=== PATIENT | female | born 1990 | race Caucasian/White ===

== ENCOUNTER → 2017-05-07 | Outpatient (CLI) | payer OTHER ==
[~2017-05-07] MED LIST: BCPILLS PO; MULT-506 PO
[2017-05-07 12:01] LABS: URINE APPEARANCE CLEAR (CLEAR); URINE BILIRUBIN NEG (NEG); URINE COLOR YELLOW; URINE NITRITE NEG (NEG); UROBILINOGEN NEG (NEG)
[2017-05-07 12:02] LABS: MANUAL MICROSCOPIC REQUIRED? NO; REVIEW REQ? NO
== END | disposition home or self-care (01) ==
LOC: C.LABSPEC 11:35
PROVIDERS: ATTEND Obstetrics & Gynecology
DX: Z34.00 Encounter for supervision of normal first pregnancy, unspecified trimester (principal)

== ENCOUNTER → 2017-05-14 | Outpatient (CLI) | payer OTHER | END | disposition home or self-care (01) | LOC: C.PAPS 11:26 | PROVIDERS: ATTEND Obstetrics & Gynecology | DX: Z12.4 Encounter for screening for malignant neoplasm of cervix (principal); Z11.51 Encounter for screening for human papillomavirus (HPV) ==

== ENCOUNTER → 2017-05-14 | Outpatient (CLI) | payer OTHER ==
[2017-05-14 09:40] LABS: BASO % 0.3 %; BASO ABS # 0.03 K/uL (0-0.2); COMPLETE YES; EOS % 0.7 %; IG% 0.3 %; LYMPH % 20.4 %; LYMPH ABS # 2.17 K/uL (1.2-3.4); MEAN CELL VOLUME 88.5 fL (80-100); MEAN CORPUSCULAR HEMOGLOBIN 29.4 pg (25-34); MEAN CORPUSCULAR HGB CONC 33.3 g/dl (32-36); MEAN PLATELET VOLUME 9.4 fL (7.4-10.4); MONO % 6.2 %; NEUT % 72.1 %; PLATELET COUNT 299 K/uL (130-400); RED BLOOD COUNT 4.52 M/uL (4.2-5.4); WHITE BLOOD COUNT 10.66 K/uL (4.8-10.8)
[2017-05-16 00:43] LABS: CHLAMYDIA TRACH RNA*** NOT DETECTED (NOT DETECTED); GC (NEIS GONORRHOEAE)RNA** NOT DETECTED (NOT DETECTED)
== END ==
LOC: C.LAB1850 08:54
PROVIDERS: ATTEND Obstetrics & Gynecology
DX: Z34.00 Encounter for supervision of normal first pregnancy, unspecified trimester (principal)

== ENCOUNTER → 2017-07-09 | Outpatient (CLI) | payer OTHER ==
[2017-07-09 12:51] LABS: GTGD 50 Grams
== END | disposition home or self-care (01) ==
LOC: C.LAB1850 11:31
PROVIDERS: ATTEND Obstetrics & Gynecology
DX: Z34.02 Encounter for supervision of normal first pregnancy, second trimester (principal)

== ENCOUNTER → 2017-07-27 | Outpatient (CLI) | payer OTHER | END | disposition home or self-care (01) | LOC: C.LAB1850 07:49 | PROVIDERS: ATTEND Obstetrics & Gynecology | DX: O28.1 Abnormal biochemical finding on antenatal screening of mother (principal); Z3A.00 Weeks of gestation of pregnancy not specified ==

== ENCOUNTER → 2017-10-02 | Outpatient (CLI) | payer OTHER ==
[2017-10-02 12:26] LABS: HEMATOCRIT 33.1 % (37-47)
[2017-10-02 12:54] LABS: GTGD 50 Grams
== END | disposition home or self-care (01) ==
LOC: C.LAB1850 09:38
PROVIDERS: ATTEND Obstetrics & Gynecology
DX: Z34.03 Encounter for supervision of normal first pregnancy, third trimester (principal)

== ENCOUNTER → 2017-10-02 | Outpatient (CLI) | payer OTHER ==
[2017-10-02 11:52] LABS: URINE APPEARANCE CLEAR (CLEAR); URINE BILIRUBIN NEG (NEG); URINE COLOR YELLOW; URINE EPITHELIAL CELL AUTO >30 /lpf (0-5); URINE NITRITE NEG (NEG); URINE SPECIFIC GRAVITY 1.023 (1.000-1.030); UROBILINOGEN NEG (NEG)
[2017-10-02 11:58] LABS: MANUAL MICROSCOPIC REQUIRED? NO; REVIEW REQ? YES
[2017-10-02 11:59] LABS: SULFASALICYLIC ACID NEG (NEG)
[2017-10-02 12:08] LABS: URINE PATH CASTS 0-3 GRANULAR CASTS /lpf (0)
== END | disposition home or self-care (01) ==
LOC: C.LABSPEC 11:16
PROVIDERS: ATTEND Obstetrics & Gynecology
DX: Z34.03 Encounter for supervision of normal first pregnancy, third trimester (principal)

== ENCOUNTER 2017-10-03 20:00 | Outpatient (CLI) | payer OTHER ==
[~2017-10-03] VITALS: Ht 152.4 cm; Wt 77.0 kg
[2017-10-03] MEDS ORDERED: ACETAMINOPHEN 325 MG TAB ONE (20:59)
[2017-10-03] MEDS ORDERED: NURSING VERBAL MED ORDER ONE (21:00)
[2017-10-03 21:09] VITALS: Ht 152.4 cm; Wt 77.0 kg
[2017-10-03 21:26] LABS: URINE APPEARANCE CLEAR (CLEAR); URINE BILIRUBIN NEG (NEG); URINE COLOR YELLOW; URINE NITRITE NEG (NEG); URINE SPECIFIC GRAVITY 1.009 (1.000-1.030); UROBILINOGEN NEG (NEG); ZZUR CULT IF INDIC CLEAN CATCH NO
[2017-10-03 21:37] LABS: MANUAL MICROSCOPIC REQUIRED? NO; REVIEW REQ? YES
[2017-10-03 22:12] LABS: URINE EPITHELIAL CELL AUTO >30 /lpf (0-5)
== END 2017-10-03 21:46 | disposition home or self-care (01) ==
LOC: C.LD 20:00 → C.OPB 20:00
PROVIDERS: ATTEND Obstetrics & Gynecology
DX: O99.89 Other specified diseases and conditions complicating pregnancy, childbirth and the puerperium (principal); M54.9 Dorsalgia, unspecified; Z3A.28 28 weeks gestation of pregnancy; Z87.440 Personal history of urinary (tract) infections

== ENCOUNTER → 2017-10-23 | Outpatient (CLI) | payer OTHER ==
[~2017-10-23] MED LIST changes: -BCPILLS PO
== END | disposition home or self-care (01) ==
LOC: C.LAB1850 08:04
PROVIDERS: ATTEND Obstetrics & Gynecology
DX: O28.1 Abnormal biochemical finding on antenatal screening of mother (principal); Z3A.00 Weeks of gestation of pregnancy not specified

== ENCOUNTER → 2017-11-26 | Outpatient (CLI) | payer OTHER | END | disposition home or self-care (01) | LOC: C.LABSPEC 11:11 | PROVIDERS: ATTEND Obstetrics & Gynecology | DX: Z34.03 Encounter for supervision of normal first pregnancy, third trimester (principal); Z3A.00 Weeks of gestation of pregnancy not specified ==

== ENCOUNTER 2019-07-10 05:24 | Inpatient (IN) ==
--- NOTE | 2019-07-09 09:28 | PAT Medication Instructions ---
Medication Instructions Date of Service July 09, 2019 Home Medications loratadine 10 mg tablet 10 mg PO QAM vitamin,calcium,ilcjpvav-quzz-oxolz acid tablet 1 tab PO QAM insulin aspart U-100 [Novolog U-100 Insulin aspart] 10 - 15 unit SUBCUT TIDM insulin regular human [Novolin R Regular U-100 Insuln] 15 unit SUBCUT HS DO NOT take the morning of surgery loratadine 10 mg tablet 10 mg PO QAM vitamin,calcium,uvthmwzi-xhko-trdfy acid tablet 1 tab PO QAM insulin aspart U-100 [Novolog U-100 Insulin aspart] 10 - 15 unit SUBCUT TIDM Take evening before surgery insulin aspart U-100 [Novolog U-100 Insulin aspart] 10 - 15 unit SUBCUT TIDM insulin regular human [Novolin R Regular U-100 Insuln] 15 unit SUBCUT HS Other Notes If you have any questions please call us at [phone] or [phone] or [phone] or [phone]
--- NOTE | 2019-07-09 15:49 | Anesthesiology Consultation ---
Date of Service July 09, 2019 Assessment & Plan (1) Encounter for pre-operative examination: - Chlorhexadine reaction: no wipes given at PAT visit given hx rash reaction* - No preop labs: per OB, no labs to be drawn at PAT visit. Per patient, no known hx of blood transfusions Chart Review Chart Review: Acceptable Risk for Surgery (pending labs AM DOS) and Patient seen in Pre Admission Testing Teaching & Discussion Pre-Anesthesia Teaching/Discussion Notes: Instructed NPO after midnight before surgery,except medications with 15 cc of water. Medication instructions provided according to the PAT guidelines. History Surgery Operation Date: 07/10/19 07:30 Proposed Procedures p Section in LD - Milena Pickard DO Height/Weight Height: 5 ft Weight: 78.7 kg Allergies Allergy/AdvReac Type Severity Reaction Status Date / Time chlorhexidine Allergy Mild RASH Verified 07/09/19 14:42 Sulfa (Sulfonamide Allergy Mild Rash Verified 07/09/19 14:42 Antibiotics) Medications Home Medications Medication Instructions Recorded Confirmed Last Taken loratadine 10 mg tablet 10 mg PO QAM tab 06/01/19 07/09/19 Unknown 1 tab PO QAM 06/01/19 07/09/19 Unknown vitamin,calcium,aiuxtjaq-fbcf-orjms acid tablet insulin aspart U-100 [Novolog 10 - 15 unit SUBCUT TIDM 07/02/19 07/09/19 Unknown U-100 Insulin aspart] insulin regular human [Novolin R 15 unit SUBCUT HS 07/02/19 07/09/19 Unknown Regular U-100 Insuln] Past Medical History Medical History Conductive hearing loss, bilateral Gestational diabetes insulin ("well controlled") History of migraine headaches History of varicella Hx of herpes zoster Exercise / Class Metabolic Activity III < 4 Walking/Shop/Light housework Past Family History Family History Grandfather (Maternal) Diabetes Sister Gestational diabetes Father Hypertension Dyslipidemia Hypercholesteremia Mother Malignant hyperthermia FHx: allergies Family/Other Cancer Past Surgical History Surgical History History of cryosurgery Hx of bilateral breast reduction surgery Hx of section c/s (failure to progress): 12/16/17: dosed epidural (x1 attempt at L3-L4) with "adequate block" at [facility]. "Good pain control" Hx of myringotomy Hx of tonsillectomy Hx of wisdom tooth extraction Past Anesthesia History No Hx of Anesthesia Complications (except PONV) and No Family Hx of Anesthesia Complications History of PONV History of PONV and Hx of Motion Sickness Social History Smoking Status: Never smoker Do You Dip or Chew Tobacco: No Hx Alcohol Use: No (no ETOH with ) Hx Substance Use: No Review of Systems related mild reflux and right hip pain. Patient denies chest pain, shortness of breath, cough, wheezing, palpitations. Physical Exam Vital Signs VITALS BP 99/63 (120/70 at OB office earlier today) P 67 TEMP 98.5 SP02 98%RA RESP 18 PHYSICAL Full neck and c-spine range of motion. Full TMJ range of motion. TMD 3.5 finger breaths Mallampati Score 3 Dentition: intact Lungs: clear throughout to auscultation Cardiac: regular rate and rhythm, no murmurs noted Spine: normal Extremities: no edema Testing Laboratory Results 05/02/19 H/H 11.2/32.5
[2019-07-10 05:56] LABS: Basophils # (auto) 0.03 K/uL (0-0.2); Basophils % (auto) 0.4 %; Eosinophils # (auto) 0.05 K/uL (0-0.5); Eosinophils % (auto) 0.6 %; Hematocrit (blood only) 33.7 % (37-47); Hemoglobin 11.6 g/dL (12.0-16.0); Immature Granulocytes # (auto) 0.06 K/uL (0.00-0.02); Immature Granulocytes % (auto) 0.7 %; Lymphocytes # (auto) 2.26 K/uL (1.2-3.4); Mean Corpuscular Volume 88.7 fL (80-100); Mean Platelet Volume 10.5 fL (7.4-10.4); Monocytes # (auto) 0.82 K/uL (0.11-0.59); Monocytes % (auto) 10.2 %; Neutrophils # (auto) 4.84 K/uL (1.4-6.5); Neutrophils % (auto) 60.1 %; Platelet Count 200 K/uL (130-400); RDW Coefficient of Variation 12.9 % (11.5-14.5); White Blood Count 8.06 K/uL (4.8-10.8)
[2019-07-10] MEDS ORDERED: CITRIC ACID/SODIUM CITRATE 15 ML UDC PO SCH (06:00)
[2019-07-10] MEDS ORDERED: CEFAZOLIN 2000MG 2,000 MG/15 ML SYR IV SCH (06:00)
[2019-07-10] MEDS ORDERED: LACTATED RINGER'S 1,000 ML IV ONE (06:01)
[2019-07-10 06:09] LABS: Mean Corpuscular Hgb Conc 34.4 g/dL (32-36)
[2019-07-10] MEDS ORDERED: LACTATED RINGER'S 1,000 ML IV SCH (06:15)
[2019-07-10] MEDS ORDERED: fentaNYL citrate 100 MCG/2 ML VIAL ONE (07:03)
[2019-07-10] MEDS ORDERED: MoRPHine SULFATE PF 1 MG/ML 10 ML AMP/VIAL ONE (07:03)
--- NOTE | 2019-07-10 07:35 | History & Physical Bridge Note ---
Date of Service July 10, 2019 History & Physical Bridge Note I have examined the patient, reviewed the History & Physical and in the interval since the performance of the History & Physical I have noted the following changes of clinical significance: no changes noted
--- NOTE | 2019-07-10 07:38 | History & Physical Report ---
Date of Service July 10, 2019 Assessment & Plan (1) : repeat section. Counseled/consented in office. Questions answered. History of Present Illness Chief Complaint: repeat c section Primary Care Provider: JOSE PCP 29yo @ 39 12/05 here for scheduled repeat cs. Also has insulin-controlled GDM. Allergies Allergy/AdvReac Type Severity Reaction Status Date / Time chlorhexidine Allergy Mild RASH Verified 07/09/19 14:42 Sulfa (Sulfonamide Allergy Mild Rash Verified 07/09/19 14:42 Antibiotics) Home Medications Home Medications Medication Instructions Recorded Confirmed Type loratadine 10 mg tablet 10 mg PO QAM tab 06/01/19 07/10/19 History 1 tab PO QAM 06/01/19 07/10/19 History vitamin,calcium,jpqaorlv-nddr-pdvoc acid tablet insulin aspart U-100 [Novolog 10 - 15 unit SUBCUT TIDM 07/02/19 07/10/19 History U-100 Insulin aspart] insulin regular human [Novolin R 15 unit SUBCUT HS 07/02/19 07/10/19 History Regular U-100 Insuln] Patient History Medical History Conductive hearing loss, bilateral Gestational diabetes insulin ("well controlled") History of migraine headaches History of varicella Hx of herpes zoster Surgical History History of cryosurgery Hx of bilateral breast reduction surgery Hx of section c/s (failure to progress): 12/16/17: dosed epidural (x1 attempt at L3-L4) with "adequate block" at [facility]. "Good pain control" Hx of myringotomy Hx of tonsillectomy Hx of wisdom tooth extraction Family History Grandfather (Maternal) Diabetes Sister Gestational diabetes Father Hypertension Dyslipidemia Hypercholesteremia Mother Malignant hyperthermia FHx: allergies Family/Other Cancer Social History Preferred Language: Khmer Communication Ability: Effective Slate Trimmer Required: No Beliefs That Will Affect Care: None marital status: Current Living Situation: Family Other Information That Helps Us Care for You: No Feels Safe at Home: Yes Safety Concerns: Feels Safe At This Time Smoking Status: Never smoker Do You Dip or Chew Tobacco: No ; Second Hand Exposure: No ; Hx Alcohol Use: No Hx Substance Use: No Review of Systems All systems reviewed & are unremarkable except as noted in HPI & below Physical Exam Constitutional: WD/WN, vitals as above no acute distress Respiratory: normal respiratory effort Cardiovascular: Rate/Rhythm: regular rate and regular rhythm Gastrointestinal (Abdomen): Inspection/Auscultation: abdomen normal to inspection; abdomen not distended Percussion/Palpation: abdomen soft Results & Data Vital Signs (Past 12 Hours) Vital Signs Temp Pulse Resp BP 07/10/19 05:43 90 116/78 07/10/19 05:30 36.8 C 90 18 116/78 Monitoring External Monitor cat 1 Tocodynamometer rare
[2019-07-10] MEDS ORDERED: OXYTOCIN 10 UNITS/ML VIAL ONE (07:41)
[2019-07-10] MEDS ORDERED: ONDANSETRON INJ 2 MG/ML 2 ML VIAL ONE (07:59)
[2019-07-10] MEDS ORDERED: DiphenhydrAMINE HCL 50 MG/ML VIAL IV PRN (08:00)
[2019-07-10] MEDS ORDERED: MoRPHine SULFATE PF 1 MG/ML 10 ML AMP/VIAL INT SPINAL ONE (08:00)
[2019-07-10] MEDS ORDERED: SODIUM CHLORIDE 0.9% 1000ML 1,000 ML IV SCH (08:00)
[2019-07-10] MEDS ORDERED: ONDANSETRON INJ 2 MG/ML 2 ML VIAL IV PRN (08:00)
[2019-07-10] MEDS ORDERED: LACTATED RINGER'S 500 ML IV PRN (08:00)
[2019-07-10] MEDS ORDERED: NALOXONE HCL 0.4 MG/1 ML VIAL/CARP IV PRN (08:00)
[2019-07-10] MEDS ORDERED: NALOXONE HCL 1 MG in SODIUM CHLORIDE 0.9% 1000ML 1,000 ML IV PRN (08:00)
[2019-07-10] MEDS ORDERED: NALOXONE HCL 0.08 MG in SYRINGE 1.8 ML IV PRN (08:00)
[2019-07-10] MEDS ORDERED: NALBUPHINE HCL INJ 10 MG/ML AMP IV PRN (08:00)
[2019-07-10] MEDS ORDERED: NO NARCOTICS OR SEDATIVES SCH (08:00)
[2019-07-10] MEDS ORDERED: DC INTRASPINAL MORPHINE SCH (08:00)
[2019-07-10] MEDS ORDERED: MEPERIDINE HCL 25 MG/ML CARP IV PRN (08:00)
[2019-07-10] MEDS ORDERED: ePHEDrine sulfate 50 MG/ML AMP IV PRN (08:00)
[2019-07-10] MEDS ORDERED: ePHEDrine sulfate 50 MG/ML SYR ONE (08:33)
[2019-07-10] MEDS ORDERED: PHENYLEPHRINE 100MCG/ML 5ML SYR ONE (08:33)
--- NOTE | 2019-07-10 08:52 | Operative Report ---
Post Operative Report Pre & Post Diagnosis Operation Date: 07/10/19 07:30 Pre-Op Diagnosis: Intrauterine at 39 2/7 weeks. Desires repeat section. Post-Op Diagnosis: Same Procedure Operation Date: 07/10/19 07:30 Actual Procedures p Repeat low transverse Section in with of live male child at 0808 - Milena Pickard DO Surgeon Milena Pickard, Section Gang Worker Dr Escobar Ramires PGY1 Estimated Blood Loss 500 Findings Consistent with Post-Op Diagnosis Viable male , apgars 9/9. Weight pending, please see nursery records . Specimens Placenta, cord blood Drains Cool clear yellow. Anesthesia Type General Indications 29yo @ 39 2/7 with h/o section, desire for repeat. GDMA2. Description of Procedure The patient was seen in the preoperative holding area where risks benefits alternatives to surgery reviewed. She elected to proceed with the case. She previously signed informed consent under no duress in the office. She was taken to the operating room, spinal anesthesia was administered. She is prepared and draped in the usual sterile fashion with Betadine prep due to chlorhexidine allergy. Timeout was confirmed. Adequate anesthesia was tested. A Pfannenstiel skin incision was made through the prior scar and carried through to the underlying layer of fascia. The fascia was nicked at midline and this incision was extended bilaterally bluntly. The superior aspect of the fascial incision was grasped with Marta clamps x2, and underlying rectus abdominis muscles were dissected away. In a similar fashion, the inferior aspect of the incision was dissected. The rectus muscle abdominous muscles were midline, and the peritoneum was extended bluntly. The bladder reflection was dissected off the anterior aspect of the uterus with Metzenbaum scissors. Bladder blade was placed, a new scalpel was used to create a low transverse incision. The membranes were ruptured for clear fluid. The was delivered from the cephalic presentation, the head was delivered, nuchal cord x1 was easily reduced, and the body followed. Spontaneous cry in the field. The cord was doubly clamped and cut, and the baby was handed off to the waiting optomechanical technician. The cord blood was collected, and the placenta was delivered spontaneously intact with three-vessel cord. Uterus was exteriorized, and cleared of all clots and debris. The hysterotomy incision was reapproximated using 0 Vicryl in a running locked stitch. A second layer of the same suture was used to imbricate the incision. Multiple fyvgtp-td-lycoz sutures of 0 Vicryl were used to obtain excellent hemostasis at the incision site. The posterior uterus was evaluated, and uterus tubes and ovaries appeared normal. The uterus was placed back inside the abdomen, again excellent hemostasis was noted. The gutters were cleared of all clots and debris. The fascial incision was reapproximated using 0 Vicryl in a running stitch. The subcutaneous tissue was irrigated, and reapproximated using 2-0 plain gut in a running stitch. The skin incision was reapproximated using 4-0 Vicryl in a running subcuticular stitch. Steri-Strips and a bandage were applied, the patient tolerated the procedure well and is being moved to her labor room to recovery in stable and good condition. I attest to the content of the Intraoperative Record and any orders documented therein. Any exceptions are noted below.
--- NOTE | 2019-07-10 09:18 | Anesthesiology Progress Note ---
Date of Service July 10, 2019 Anesthesia Post Procedure Vital Signs Vital Signs: Temp Pulse Resp BP Pulse Ox 07/10/19 09:14 82 99 07/10/19 09:09 68 125/58 L 99 07/10/19 09:04 84 99 07/10/19 08:59 74 106/57 L 98 07/10/19 08:54 81 98 07/10/19 08:50 97.9 F 20 07/10/19 08:49 76 113/58 L 97 07/10/19 05:43 90 116/78 07/10/19 05:30 98.2 F 90 18 116/78 Notes Mental Status: alert / awake / arousable and participated in evaluation Nausea / Vomiting: adequately controlled Pain: adequately controlled Airway Patency, RR, SpO2: stable & adequate BP & HR: stable & adequate Hydration State: stable & adequate Neuraxial Anesthesia: was administered and sensory block is resolving Anesthetic Complications: no major complications apparent and Pt Satisfied with anesthetic care
[2019-07-10] MEDS: KETOROLAC 30 MG/ML VIAL IV PRN ×3 (09:57→23:23)
[2019-07-10] MEDS ORDERED: DIPHTHERIA/TETANUS/PERTUSSIS 0.5 ML SYR/VIAL IM ONE (11:51)
[2019-07-10] MEDS ORDERED: MAGNESIUM HYDROXIDE SUSP 30 ML UDC PO PRN (11:51)
[2019-07-10] MEDS ORDERED: HYDROCORTISONE ACETATE 25 MG SUPP PR PRN (11:51)
[2019-07-10] MEDS ORDERED: SUPERCREAM 0.870% 15 GM JAR EXT PRN (11:51)
[2019-07-10] MEDS ORDERED: BENZOCAINE 20% AER SPR 82.5 GM CAN EXT PRN (11:51)
[2019-07-10] MEDS: OXYTOCIN 20 UNITS in LACTATED RINGER'S 1,000 ML IV SCH ×2 (12:35→21:34)
[2019-07-10] MEDS: SIMETHICONE 80 MG CHEW PO SCH ×3 (13:23→20:58)
[2019-07-10] MEDS ORDERED: PROMETHAZINE HCL 6.25 MG in SODIUM CHLORIDE 0.9% 50 ML IV STA (14:27)
[2019-07-10] MEDS: DOCUSATE SODIUM 100 MG CAP PO SCH (20:58)
[2019-07-11] MEDS ORDERED: DiphenhydrAMINE HCL 50 MG/ML VIAL IV PRN (02:01)
[2019-07-11] MEDS ORDERED: PROMETHAZINE HCL 25 MG in SODIUM CHLORIDE 0.9% 50 ML IV PRN (02:01)
[2019-07-11] MEDS ORDERED: ONDANSETRON INJ 2 MG/ML 2 ML VIAL IV PRN (02:01)
[2019-07-11] MEDS ORDERED: KETOROLAC 30 MG/ML VIAL IV PRN (02:01)
[2019-07-11] MEDS: OXYCODONE/ACETAMINOPHEN 5mg/325mg TAB PO PRN ×4 (05:47→22:23)
[2019-07-11] MEDS: IBUPROFEN 600 MG TAB PO PRN ×4 (05:48→22:24)
[2019-07-11 06:30] LABS: Basophils # (auto) 0.02 K/uL (0-0.2); Basophils % (auto) 0.2 %; Eosinophils # (auto) 0.06 K/uL (0-0.5); Eosinophils % (auto) 0.6 %; Hematocrit (blood only) 33.9 % (37-47); Hemoglobin 11.7 g/dL (12.0-16.0); Immature Granulocytes # (auto) 0.05 K/uL (0.00-0.02); Immature Granulocytes % (auto) 0.5 %; Lymphocytes # (auto) 1.41 K/uL (1.2-3.4); Lymphocytes % (auto) 12.9 %; Mean Corpuscular Hgb Conc 34.5 g/dL (32-36); Mean Platelet Volume 10.1 fL (7.4-10.4); Monocytes # (auto) 0.98 K/uL (0.11-0.59); Neutrophils # (auto) 8.37 K/uL (1.4-6.5); Neutrophils % (auto) 76.8 %; Platelet Count 151 K/uL (130-400); RDW Coefficient of Variation 13.1 % (11.5-14.5); RDW Standard Deviation 41.4 fL (36.4-46.3); Red Blood Count 3.81 M/uL (4.2-5.4); White Blood Count 10.89 K/uL (4.8-10.8)
--- NOTE | 2019-07-11 06:50 | Obstetrical Progress Note ---
Date of Service <Escobar Ramires MD - Last Filed: 07/11/19 07:26> July 11, 2019 Assessment & Plan <Escobar Ramires MD - Last Filed: 07/11/19 07:26> (1) : CS 07/10 POD#1 feels well, ambulating well, voiding well overnight will continue routine care after discharge will have follow-up in 6 weeks Subjective <Escobar Ramires MD - Last Filed: 07/11/19 07:26> Ms Miller is a 29y/o female ; POD #1 following delivery at 37 5/7 weeks; doing well this morning; having some mild abdominal cramping/pain; voiding well, not passing gas at this point but can feel her abdomen rumbling; tolerating meals overnight; and able to ambulate some within the room Physical Exam <Escobar Ramires MD - Last Filed: 07/11/19 07:26> General: alert; oriented; no acute distress Cardiac: RRR; no m/g/r Respiratory: CTAB a/p; no wheezes/rales/rhonchi; no increased work of breathing; symmetrical chest rise; no respiratory distress Abdomen: soft; NT/ND; bowel sounds positive Uterus: uterine fundus firm; palpable 2cm below umbilicus Lower extrem: no lower extremity edema or swelling; no deep calf pain; Jessica's sign negative b/l Results & Data <Escobar Ramires MD - Last Filed: 07/11/19 07:26> Vital Signs (Past 12 Hours) Vital Signs Temp Pulse Resp BP Pulse Ox 07/11/19 04:00 36.9 C 75 16 115/73 93 07/11/19 02:30 16 93 07/11/19 01:30 16 96 07/11/19 00:30 17 95 07/11/19 00:20 36.8 C 79 17 105/70 94 07/10/19 23:30 16 94 07/10/19 22:37 16 95 07/10/19 21:30 18 96 07/10/19 20:30 18 98 07/10/19 20:00 36.8 C 77 18 111/61 07/10/19 19:30 18 100 Laboratory Results 07/11/19 07/10/19 Range/Units 06:15 05:42 WBC 10.89 H (4.8-10.8) K/uL RBC 3.81 L (4.2-5.4) M/uL Hgb 11.7 L (12.0-16.0) g/dL Hct 33.9 L (37-47) % MCV 89.0 (80-100) fL MCH 30.7 (25-34) pg MCHC 34.5 (32-36) g/dL RDW Std Deviation 41.4 (36.4-46.3) fL RDW Coeff of Keri 13.1 (11.5-14.5) % Plt Count 151 (130-400) K/uL MPV 10.1 (7.4-10.4) fL Immature Gran % (Auto) 0.5 % Neut % (Auto) 76.8 % Lymph % (Auto) 12.9 % Kimble % (Auto) 9.0 % Eos % (Auto) 0.6 % Baso % (Auto) 0.2 % Immature Gran # (Auto) 0.05 H (0.00-0.02) K/uL Neut # (Auto) 8.37 H (1.4-6.5) K/uL Lymph # (Auto) 1.41 (1.2-3.4) K/uL Kimble # (Auto) 0.98 H (0.11-0.59) K/uL Eos # (Auto) 0.06 (0-0.5) K/uL Baso # (Auto) 0.02 (0-0.2) K/uL Blood Type A Positive Antibody Screen NEGATIVE Medications Administered Current Inpatient Medications Benzocaine (Dermoplast Pain Relieving [place]) 1 appln EXT UD PRN PRN Reason: use on skin as needed Stop: 08/09/19 11:50 Bisacodyl (Dulcolax) 5 mg PO 2000 [facility] Stop: 07/11/19 20:01 Bisacodyl (Dulcolax) 10 mg MO PRN PRN PRN Reason: Constipation Stop: 08/11/19 08:48 Cocaine HCl (Supercream 0.870%) 1 gm EXT UD PRN PRN Reason: hemmorrhoidal inflammation Stop: 07/24/19 11:50 Diphenhydramine HCl (Benadryl) 25 mg IV QID PRN PRN Reason: Itching Stop: 08/10/19 02:00 Diphenhydramine HCl (Benadryl Capsule) 25 mg PO QID PRN PRN Reason: Itching Stop: 08/09/19 11:50 Docusate Sodium (Colace) 100 mg PO DAILY@,21 [facility] Stop: 08/09/19 20:59 Last Admin: 07/10/19 20:58 Dose: 100 mg Documented by: Ferrous Sulfate (Feosol) 325 mg PO DAILY@08 [facility] Stop: 08/10/19 07:59 Hydrocortisone (Anusol Hc) 25 mg MO BID PRN PRN Reason: Hemorrhoids Stop: 08/09/19 11:50 Lactated Ringer's (Lr) 1,000 mls @ 125 mls/hr IV .Q8H [facility] Stop: 08/09/19 06:14 Last Admin: 07/10/19 06:59 Dose: 125 mls/hr Documented by: Promethazine HCl 25 mg/ Sodium (Chloride) 51 mls @ 204 mls/hr IV Q4H PRN PRN Reason: Nausea And Vomiting Stop: 08/10/19 02:00 Ibuprofen (Motrin) 600 mg PO Q4H PRN PRN Reason: Pain Stop: 08/09/19 11:50 Last Admin: 07/11/19 05:48 Dose: 600 mg Documented by: Ketorolac Tromethamine (Toradol) 30 mg IV Q6H PRN PRN Reason: Pain Stop: 07/16/19 02:00 Magnesium Hydroxide (Milk Of Magnesia) 30 ml PO HS PRN PRN Reason: Constipation Stop: 08/09/19 11:50 Ondansetron HCl (Zofran) 4 mg IV Q4H PRN PRN Reason: Nausea And Vomiting Stop: 08/10/19 02:00 Oxycodone/Acetaminophen (Percocet 5mg/325mg) 1 - 2 tab PO Q4H PRN PRN Reason: Pain Stop: 07/25/19 02:00 Last Admin: 07/11/19 05:47 Dose: 1 tab Documented by: Sriramat Multivit/[place]/Iron/Folic Ac ( Vitamin) 1 tab PO DAILY@08 [facility] Stop: 08/10/19 07:59 Simethicone (Mylicon) 80 mg PO DAILY@,,, [facility] Stop: 08/09/19 12:59 Last Admin: 07/10/19 20:58 Dose: 80 mg Documented by: <Milena Pickard DO - Last Filed: 07/11/19 08:05> Co-Signing Physician Notes Resident Physician Supervision Note: I was present with Dr. Ramires during the history and exam. I discussed the case with the resident and agree with the findings and plan as documented in the note. Any exceptions or clarifications are listed here: POD#1 doing well. Continue routine postop care. Documented By: Milena Pickard DO Resident Activity Tracking <Escobar Ramires MD - Last Filed: 07/11/19 07:26> Resident Involvement: Resident Care Provided Care Provided: OB Delivery
[2019-07-11] MEDS ORDERED: MEASLES, MUMPS & RUBELLA VIRUS VIAL SQ ONE ×2 (08:15→22:08)
[2019-07-11] MEDS: SIMETHICONE 80 MG CHEW PO SCH ×3 (08:55→20:48)
[2019-07-11] MEDS: FERROUS SULFATE 325 MG TAB PO SCH (08:55)
[2019-07-11] MEDS: DOCUSATE SODIUM 100 MG CAP PO SCH ×2 (08:55→20:47)
[2019-07-11] MEDS: PRENATAL VITAMIN 1 TAB PO SCH (08:55)
[2019-07-11] MEDS ORDERED: BISACODYL 5 MG TABEC PO SCH (20:00)
[2019-07-12] MEDS: IBUPROFEN 600 MG TAB PO PRN ×3 (02:25→11:54)
[2019-07-12 06:43] LABS: Hematocrit (blood only) 33.2 % (37-47); Hemoglobin 11.1 g/dL (12.0-16.0)
--- NOTE | 2019-07-12 06:54 | Obstetrical Progress Note ---
Date of Service <Escobar Ramires MD - Last Filed: 07/12/19 08:02> July 12, 2019 Assessment & Plan <Escobar Ramires MD - Last Filed: 07/12/19 08:02> (1) : CS 07/10 POD#2 feels well, ambulating well, voiding well overnight will continue routine care after discharge will have follow-up in 6 weeks Subjective <Escobar Ramires MD - Last Filed: 07/12/19 08:02> Ms Miller is a 29y/o female ; POD #2 following delivery at 37 5/7 weeks; doing well this morning; having some mild abdominal cramping/pain; voiding well, not passing gas at this point but can feel her abdomen rumbling; tolerating meals overnight; and able to ambulate some within the room Physical Exam <Escobar Ramires MD - Last Filed: 07/12/19 08:02> General: alert; oriented; no acute distress Cardiac: RRR; no m/g/r Respiratory: CTAB a/p; no wheezes/rales/rhonchi; no increased work of breathing; symmetrical chest rise; no respiratory distress Abdomen: soft; NT/ND; bowel sounds positive Uterus: uterine fundus firm; palpable 4cm below umbilicus Lower extrem: no lower extremity edema or swelling; no deep calf pain; Jessica's sign negative b/l Results & Data <Escobar Ramires MD - Last Filed: 07/12/19 08:02> Vital Signs (Past 12 Hours) Vital Signs Temp Pulse Resp BP Pulse Ox 07/12/19 03:10 36.6 C 71 16 117/74 96 Laboratory Results 07/12/19 Range/Units 06:28 Hgb 11.1 L (12.0-16.0) g/dL Hct 33.2 L (37-47) % Medications Administered Current Inpatient Medications Benzocaine (Dermoplast Pain Relieving [place]) 1 appln EXT UD PRN PRN Reason: use on skin as needed Stop: 08/09/19 11:50 Bisacodyl (Dulcolax) 10 mg MA PRN PRN PRN Reason: Constipation Stop: 08/11/19 08:48 Cocaine HCl (Supercream 0.870%) 1 gm EXT UD PRN PRN Reason: hemmorrhoidal inflammation Stop: 07/24/19 11:50 Diphenhydramine HCl (Benadryl) 25 mg IV QID PRN PRN Reason: Itching Stop: 08/10/19 02:00 Diphenhydramine HCl (Benadryl Capsule) 25 mg PO QID PRN PRN Reason: Itching Stop: 08/09/19 11:50 Docusate Sodium (Colace) 100 mg PO DAILY@08,21 [facility] Stop: 08/09/19 20:59 Last Admin: 07/11/19 20:47 Dose: 100 mg Documented by: Ferrous Sulfate (Feosol) 325 mg PO DAILY@08 [facility] Stop: 08/10/19 07:59 Last Admin: 07/11/19 08:55 Dose: 325 mg Documented by: Hydrocortisone (Anusol Hc) 25 mg MA BID PRN PRN Reason: Hemorrhoids Stop: 08/09/19 11:50 Lactated Ringer's (Lr) 1,000 mls @ 125 mls/hr IV .Q8H [facility] Stop: 08/09/19 06:14 Last Admin: 07/10/19 06:59 Dose: 125 mls/hr Documented by: Promethazine HCl 25 mg/ Sodium (Chloride) 51 mls @ 204 mls/hr IV Q4H PRN PRN Reason: Nausea And Vomiting Stop: 08/10/19 02:00 Ibuprofen (Motrin) 600 mg PO Q4H PRN PRN Reason: Pain Stop: 08/09/19 11:50 Last Admin: 07/12/19 02:25 Dose: 600 mg Documented by: Ketorolac Tromethamine (Toradol) 30 mg IV Q6H PRN PRN Reason: Pain Stop: 07/16/19 02:00 Magnesium Hydroxide (Milk Of Magnesia) 30 ml PO HS PRN PRN Reason: Constipation Stop: 08/09/19 11:50 Ondansetron HCl (Zofran) 4 mg IV Q4H PRN PRN Reason: Nausea And Vomiting Stop: 08/10/19 02:00 Oxycodone/Acetaminophen (Percocet 5mg/325mg) 1 - 2 tab PO Q4H PRN PRN Reason: Pain Stop: 07/25/19 02:00 Last Admin: 07/11/19 22:23 Dose: 1 tab Documented by: Prenat Multivit/Candle Making Supervisor/Iron/Folic Ac ( Vitamin) 1 tab PO DAILY@08 [facility] Stop: 08/10/19 07:59 Last Admin: 07/11/19 08:55 Dose: 1 tab Documented by: Simethicone (Mylicon) 80 mg PO DAILY@08,13,17,21 [facility] Stop: 08/09/19 12:59 Last Admin: 07/11/19 20:48 Dose: 80 mg Documented by: <Alen Gill MD - Last Filed: 07/12/19 08:22> Co-Signing Physician Notes Patient seen and evaluated and agree with the above findings and plan. Stable for discharge. Resident Activity Tracking <Escobar Ramires MD - Last Filed: 07/12/19 08:02> Resident Involvement: Resident Care Provided Care Provided: OB Delivery
[2019-07-12] MEDS: OXYCODONE/ACETAMINOPHEN 5mg/325mg TAB PO PRN ×2 (07:50→11:53)
[2019-07-12] MEDS: FERROUS SULFATE 325 MG TAB PO SCH (07:51)
[2019-07-12] MEDS: SIMETHICONE 80 MG CHEW PO SCH ×2 (07:51→11:58)
[2019-07-12] MEDS: PRENATAL VITAMIN 1 TAB PO SCH (07:51)
[2019-07-12] MEDS: DOCUSATE SODIUM 100 MG CAP PO SCH (07:51)
[2019-07-12] MEDS ORDERED: BISACODYL 10 MG SUPP PR PRN (08:49)
--- NOTE | 2019-07-14 10:00 | Discharge Summary ---
Date of Service July 14, 2019 Admission HPI Per Admitting Provider 29yo @ 39 12/05 here for scheduled repeat cs. Also has insulin-controlled GDM. Admission Exam (Per Admitting) Constitutional WD/WN, vitals as above no acute distress Respiratory normal respiratory effort Cardiovascular Rate/Rhythm: regular rate and regular rhythm Gastrointestinal (Abdomen) Inspection/Auscultation: abdomen normal to inspection; abdomen not distended Percussion/Palpation: abdomen soft Discharge Data Consultations 07/10/19 05:27 Consult Anesthesiology Stat Procedures Performed Operation Date: 07/10/19 07:30 Actual Procedures p Section in LD with of live male child at 0808 - Milena Pickard DO [facility] Course (1) : Patient was admitted following her scheduled repeat section. Unremarkable postop course, discharged home POD#2 to followup in the office in 6 weeks. Please see info provided to patient for meds/discharge instructions/etc.
== END 2019-07-12 13:09 | disposition home or self-care (01) | DRG 788 ==
LOC: 4S1 05:24 → EDSTATUS 07:30 → 4S2 12:16

== ENCOUNTER 2024-02-26 05:39 | Inpatient (IN) ==
--- NOTE | 2024-02-13 09:12 | Anesthesiology Consultation ---
Date of Service February 13, 2024 Assessment & Plan (1) Encounter for pre-operative examination: Chart Review Chart Review: Acceptable Risk for Surgery and Patient NOT seen in Pre Admission Testing Consults Requested none History Surgery Operation Date: 02/26/24 07:30 Proposed Procedures p Repeat Section in LD - Rubin Crespo MD Height/Weight Height: 5 ft Weight: 72.575 kg Allergies Allergy/AdvReac Type Severity Reaction Status Date / Time chlorhexidine Allergy Mild RASH Verified 02/13/24 07:58 Sulfa (Sulfonamide Allergy Mild Rash Verified 02/13/24 07:58 Antibiotics) Medications Home Medications Medication Instructions Recorded Confirmed Last Taken cyanocobalamin (vitamin B-12) 1 tab PO QAM 02/13/24 02/13/24 Unknown prenat.vits,bernard,uvg-vksu-sdybk 1 tab PO QAM 02/13/24 02/13/24 Unknown Past Medical History Medical History History of anesthesia reaction with previous 2 c-sections, one spinal one epidural, vomited after both procedures. History of migraine headaches Conductive hearing loss, bilateral Past Family History Family History Grandfather (Maternal) Diabetes Sister Gestational diabetes Cancer Father Hypertension Dyslipidemia Hypercholesteremia Mother Malignant hyperthermia FHx: allergies Environmental allergies Family/Other No problems noted. Other No family history of bleeding disorder Past Surgical History Surgical History S/P myringotomy with insertion of tube Hx of tonsillectomy Hx of wisdom tooth extraction Hx of section x2 Hx of bilateral breast reduction surgery History of cryosurgery Social History Smoking Status: Never smoker Do You Dip or Chew Tobacco: No Hx Alcohol Use: Yes ("not while ") Alcohol type: wine alcohol intake frequency: other Alcohol Intake Frequency Comment: 2-4 drinks per week Hx Substance Use: No substance use type: does not use Testing Laboratory Results Laboratory Tests 08/04/23 11:49 WBC 11.16 H Hgb 13.0 Hct 36.6 L Plt Count 303 Sodium 136 Potassium 3.5 Chloride 103 Carbon Dioxide 27 BUN 12 Creatinine 0.57 L Glucose 138 H
[~2024-02-26 05:39] MED LIST changes: +LACTATED RINGER'S 1,000 ML IV SCH; -MULT-506 PO
[2024-02-26] MEDS: LACTATED RINGER'S 1,000 ML IV SCH ×2 (06:15→07:18)
[2024-02-26 06:29] LABS: Basophils # (auto) 0.03 K/uL (0.00-0.20); Basophils % (auto) 0.3 %; Eosinophils # (auto) 0.06 K/uL (0.00-0.50); Eosinophils % (auto) 0.6 %; Hemoglobin 12.4 g/dl (12.0-16.0); Immature Granulocytes # (auto) 0.06 K/uL (0.01-0.20); Immature Granulocytes % (auto) 0.6 %; Lymphocytes # (auto) 2.84 K/uL (1.20-3.40); Mean Corpuscular Hemoglobin 31.5 pg (25.0-34.0); Mean Corpuscular Hgb Conc 35.4 g/dL (32.0-36.0); Mean Corpuscular Volume 88.8 fL (80.0-100.0); Mean Platelet Volume 9.8 fL (9.4-12.4); Monocytes # (auto) 0.81 K/uL (0.11-0.59); Monocytes % (auto) 8.6 %; Neutrophils # (auto) 5.67 K/uL (1.40-6.50); Neutrophils % (auto) 59.9 %; Platelet Count 233 K/uL (130-400); RDW Coefficient of Variation 12.8 % (11.5-14.5); RDW Standard Deviation 41.7 fL (36.4-46.3); Red Blood Count 3.94 M/uL (4.20-5.40); White Blood Count 9.47 K/ul (4.8-10.8)
--- OUTSIDE RECORDS SUMMARY | 2024-02-26 08:19 | External Medical Summary | Summary of Care ---
Author Name Unknown Organization [facility] Address [address] [place] [address] Phone [phone] Care Team Providers Care Distribution Center Associate Name Role Phone Alex Hopkins DO Primary Care Provider Reason for Visit * Reason Comments Return Visit Non Stress Test Encounter Details Date Type Department Care Team (Late st Contact Info) Description 02/12/2024 9:00 AM EDT Office Visit Gynecology/Obstetri cs Mayuri Botello [address] [facility] [place] [address] Jayy Chong, [facility] [address] [facility] [place] [id number] Ayan Non Stress Tests Manoj [address] [facility] [place] [address] Supervision of high risk in third trimester*; History of gestational diabetes mellitus (GDM); History of section complicating ; Obesity in , antepartum; Surrogate ; Diet controlled gestational diabetes mellitus (GDM) in third trimester; resulting from in vitro fertilization in third trimester Allergies Active Allergy Reactions Criticality Noted Date Comments Sulfa Antibiotics 08/15/2002 documented as of this encounter (statuses as of 02/12/2024) Medications Medication Sig Dispensed Refills Start Date End Date Status 28-0.8 MG Oral Tablet Take by mouth. 0 Active B Complex Vitamins Oral Capsule Take 1 Capsule by mouth in the morning. 0 Active Breast PumpIndications:[place] st feeding status of mother Estimated Date of Delivery: 02/29/24, Z39.1, double electric breast pump 1 Each 0 10/12/2023 Active OneTwoSee Verio Flex System w/Device KitIndications:Diet controlled gestational diabetes mellitus (GDM) in third trimester Use to test blood sugars 4 times daily (fasting, 1 hour after breakfast, lunch, and dinner) 1 Kit 0 12/07/2023 Active Virident Systems In Vitro Strip (Glucose Blood)Indications:Di et controlled gestational diabetes mellitus (GDM) in third trimester Use to test blood sugars 4 times daily (fasting, 1 hour after breakfast, lunch, and dinner) 125 Strip 6 12/07/2023 Active LemonStand.uch DelAffirm Lancets 30GIndications:Diet controlled gestational diabetes mellitus (GDM) in third trimester Use to test blood sugars 4 times daily (fasting, 1 hour after breakfast, lunch, and dinner) 200 Each 6 12/07/2023 Active documented as of this encounter (statuses as of 02/12/2024) Active Problems Problem Noted Date Diagnosed Date Diet controlled gestational diabetes mellitus (GDM) in third trimester 12/07/2023 Overview: Diagnosed at 28 weeks Nutrition consult ordered History of A2GDM (insulin) Lab Results Component Value Date/Time 50-G GESTATIONAL GLUCOSE, 1 HOUR - [facility] 174 (H) 08/21/2023 02:20 PM 100-G GESTATIONAL GLUCOSE, 1 HOUR - [facility] 199 (H) 12/07/2023 08:12 AM 100-G GESTATIONAL GLUCOSE, 2 HOUR - [facility] 163 (H) 12/07/2023 09:09 AM 100-G GESTATIONAL GLUCOSE, 3 HOUR - [facility] 116 12/07/2023 10:07 AM 100-G GESTATIONAL GLUCOSE, FASTING - [facility] 89 12/07/2023 07:06 AM 12/11/23: MFM ADAPT consult complete. Enrolled in Current Health. Instructions provided to report blood sugars each week for MFM review 12/17/2023- stable 12/24/23-stable 12/31/23-stable; 2 elevated sugars will review again next week 01/07/24-stable 01/14/24- patient had some elevated sugars msg sent to [facility] to schedule for FU adapt appt 01/18/2024 Follow up ADAPT compete; Reports Current Health Julianna not working; blood sugars reported WNL, continue diet controlled; phone number provided for Current Health 01/21/24: RPM reviewed. No new blood sugars to review since 01/17; asked patient to provide blood sugars via chat or MyG if still having issues with Current Health. 01/28/24: RPM reviewed. Still missing multiple readings; will schedule ADAPT f/u. 01/28/24: RPM reviewed, patient sen readings for and in chat; both days within target. Pt reports increased nausea recently. Scheduled for adapt visit 2024 --KW 02/04/24: RPM reviewed; stable overall; Nutrition visit tomorrow 02/11/24: RPM reviewed; overall stable Last Assessment & Plan: CONSIDERATIONS: Reviewed etiology and risks associated with gestational diabetes mellitus (GDM), including risks to , fetus, and maternal progression to Type 2 DM. Instructed on proper use of glucometer; supplies ordered, if indicated. Advised that life-long screening for diabetes is recommended every 1-3 years. RECOMMENDATIONS: Recommend monitoring blood sugars with daily fasting blood sugar (maintained at less than or equal to 95) and 1 hour postprandial measurements (maintained at less than or equal to 140). Medications should be adjusted to maintain these target values. Report levels to MFM (Maternal- Medicine) weekly. Recommend nutrition consult with RDN (Registered Dietitian Rand Butting Machine Operator). Lifestyle changes are also indicated including optimizing gestational weight gain and physical activity of 30 minutes per day, if not otherwise contraindicated in . Insulin is preferred if medications are indicated to optimize euglycemia. Metformin (preferred over glyburide) may also be used in some circumstances. Reviewed the risks and benefits of each. Recommend ultrasound, surveillance and delivery as follows: A1GDM, delivery should be accomplished by EDC due to in vitro fertilization . A2GDM, recommend growth assessment with MFM every 4 weeks, initiate surveillance at 32 weeks and continue until delivery at 39 weeks. Recommend intrapartum monitoring every 1-2 hours (A2GDM) or every 4 hours (A1GDM) and treat with insulin if indicated. Recommend 2-hour glucose tolerance testing with 75-gram glucose load 6-8 weeks . Surrogate 08/21/2023 resulting from in vitro fertilization 08/16/2023 Overview: Recommend Maternal Medicine (MFM) level II anatomy scan at 19-20 weeks. Recommend echocardiography by MFM at 22-24 weeks gestation for patients who have had IVF. Recommend MFM growth evaluation if indicated by other existing or maternal conditions. Recommend ultrasound for growth at 28-32 weeks. Recommend weekly NSTs to begin at 36 weeks. Consider delivery at 39 weeks. Last Assessment & Plan: Low risk NIPT appreciated. We reviewed slightly increased risk for congenital anomalies, particularly cardiac, in IVF pregnancies as well as FGR. Etiology of these complications is unknown; perhaps related to underlying cause of the infertility vs. embryo cell culture. The risk is higher when ICSI is used. echo may not detect small VSD (<2mm) but is effective in diagnosis of most cyanotic lesions and many other clinically relevant cardiac defects. Today's exam did not suggest any evidence of cardiac abnormality. Will follow for growth around 32 weeks. NSTs at 36 weeks; consider delivery by her EDC. Questions answered. , supervision, high-risk 08/16/2023 Overview: IVF Surrogate carrier Donor egg and biological father's sperm Embryo transfer on 06/13/2023 PIGT: not performed-fresh transfer NIPT: ordered Last Assessment & Plan: CONSIDERATIONS: Assisted reproductive technology (ART) includes in vitro fertilization (IVF), intrauterine insemination (IUI), Gamete intrafallopian transfer (GIFT) and Zygote intrafallopian transfer (ZIFT). 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 Discussed with patient that even for avila ART pregnancies, the relative risk of complications such as growth restriction, preeclampsia, prematurity, placental abruption, and mortality are increased, although clearly not independent of infertility itself. Neurodevelopmental outcomes of children conceived by ART appear to be normal. Risk of congenital abnormalities is increased by about 1/3 over the population baseline risk of 2-4%. There is approximately 1% of cardiac defects associated with pregnancies resulting from IVF. This is likely due to the fertilization process. RECOMMENDATIONS: Recommend consult with genetic counselor. Recommend Maternal Medicine (MFM) level II anatomy scan at 19-20 weeks. Recommend echocardiography by MFM at 22-24 weeks gestation for patients who have had IVF. Recommend MFM growth evaluation if indicated by other existing or maternal conditions. Recommend ultrasound for growth at 28-32 weeks. Recommend weekly NSTs to begin at 36 weeks. Consider delivery at 39 weeks. History of gestational diabetes mellitus (GDM) 1 Overview: History of gestational diabetes in two previous pregnancies; diet and insulin controlled Has early 1 hour GTT scheduled this week. Lab Results Component Value Date/Time HEMOGLOBIN A1C - [facility] 5.1 02/08/2023 07:21 AM HEMOGLOBIN A1C - [facility] 5.4 12/30/2019 10:44 AM Last Assessment & Plan: Elevated 1'GTT with normal 3'GTT. Repeat 3'GTT needed in third trimester. History of section complicating pregnan cy 08/16/2023 Overview: History of C-sections x2 Plans repeat elective Obesity in , antepartum 08/16/2023 Overview: Pre gravid BMI: 30.2 Class 1 obesity Last Assessment & Plan: The anatomy that was visualized is appropriate for the gestational age. Family history of hypercholesterolemia Dysfunction of eustachian tube 03/12/2012 Viral warts 09/02/2002 Overview: ICD-10 update of inactive term Estimated Date of Delivery Comme nts Yes 02/29/2024 Based on Ultraso und documented as of this encounter (statuses as of 02/12/2024) Resolved Problems Problem Noted Date Diagnosed Date Resolved Date High-risk 08/16/2023 08/21/20 23 IUD contraception 12/30/2019 08/15/2023 documented as of this encounter (statuses as of 02/12/2024) Immunizations Name Administration Dates Next Due DTP Vaccine 08/23/1995, 2,1991, 991,1991 DTaP HIB - Dipth/Tet/Acell Pert/HIB 06/1992,1991,1991, 991 Hepatitis B Vaccine 12/19/2012,07/16/2012,2011 Hepatitis B, 0-19 yrs 12/16/1993,07/22/1993,05/30 Hepatitis B, 20+ yrs 12/19/2012,07/16/2012,06/11 MMR - Measles/Mumps/Rubella Vaccine 08/23/1995,0 05/06/1992 OPV - Polio Virus Vaccine (Oral) 05/06/1992,05/29,1991 Seasonal Influenza, PF, 6 M & above, IM , (FluLaval or Fluzone) 08/16/2023 Seasonal Influenza, Split, I IV3, No Preserve, Inj 08/20/2015 Seasonal Influenza, Split, I IV3, With Preserve, Inj 09/13/2016,08/20/2015,08/10/2014, 013 TDAP (age 10 and older)(Boostrix) 12/07/2023,10/2018,02/03/2011 documented as of this encounter Social History Tobacco Use Types Packs/Day Years Used Date Smoking Tobacco: Never Smokeless Tobacco: Never Alcohol Use Standard Drinks/Week Comments No 0 (1 standard drink = 0.6 oz pur e alcohol) PHQ-2 Answer Date Recorded PHQ Adult Total Score 0 01/22/2024 Hunger Vital Sign Answer Date Recorded Within the past 12 months, y ou worried that your food would run out before you got the money to buy more. Never true 08/16/20 23 Within the past 12 months, t he food you bought just didn't last and you didn't have money to get more. Never true 08/16/2023 [place] Depression Scale Answer Date Recorded [place] Depression Scale Total 2 01/22/2024 The thought of harming myself has occurred to me . Never 01/22/2024 Estimated Date of Delivery Comme nts Yes 02/29/2024 Based on Ultraso und Sex and Gender Information Value Date Recorded Sex Assigned at Female 01/04/2021 9:07 AM EST Gender Identity Female 01/04/2021 9:07 AM EST Sexual Orientation Straight 01/04/2021 9: 07 AM EST Job Start Date Occupation Industry Not on file Not on file Not on file documented as of this encounter Last Filed Vital Signs Vital Sign Reading Time Taken Comments Blood Pressure 112/68 02/12/2024 9:17 AM EDT Pulse - - Temperature - - Respiratory Rate - - Oxygen Saturation - - Inhaled Oxygen Concentration - - Weight 74.4 kg (164 lb) 02/12/2024 9:17 AM EDT Height 152.4 cm (5') 02/12/2024 9:17 AM EDT Body Mass Index 32.03 02/12/2024 9:17 AM EDT documented in this encounter Progress Notes * Jayy Chong CNM - 02/12/2024 9:45 AM EDT Surrogate patient. DARRYL at 37w4d, with NST. Feeling well without concerns. Denies any DFM. Denies any RUC, LOF, or VB. Denies any concerns with BS, managed by MFM. States parents had wanted to decline most recent growth if not needed, patient had reached out to Dr. Lomas with M and this was mutually agreed upon. Has ERCS scheduled 02/26/24 RTO 1 week for NST/DARRYL NST Cat 1, but non-reactive, will send for BPP 06/05 ASSESSMENT assessment with Non-stress Test completed on 02/12/2024 at 37.4weeks gestation for indication of IVF. heart baseline: 140s bpm Variability: Moderate Decelerations: absent Accelerations: present but not 15x15 Contractions: Mild irregular NST start time: 916 NST stop time: 951 NST strip reviewed, interpreted, and approved by OB provider, Jayy Chong CNM. NST strip stored in clinic storage file documented in this encounter Nursing Notes * Safia Desouza LPN - 02/12/2024 10:05 AM EDT 37w4d NST, DARRYL Denies concerns documented in this encounter Plan of Treatment Upcoming Encounters Date Type Department Care Team (Late st Contact Info) Description 02/18/2024 1:45 PM EDT Office Visit Gynecology/Obstetrics RodriguezPedro Luisnava Botello [address] [place] [phone] Magdalena Patel CRNP [address] [place] [address] Tammy Botello Stress Tests Manoj [address] [place] [address] 02/26/2024 9:00 AM EDT Office Visit Gynecology/Obstetrics Mayuri Botello [address] [place] [address] Celena Napoles, [facility] [address] [facility] [address] Tammy Botello Stress Tests Manoj [address] [place] [address] 03/04/2024 10:20 AM EDT [facility] [address] [place] [address] Mallory Murray PA-C [address] [place] [address] 03/04/2024 11:30 AM EDT Office Visit Gynecology/Obstetrics Mayuri Botello [address] [place] [address] Magdalena Patel CRNP [address] [place] [address] Pending Results Name Type Priority Associated Diagnoses Date /Time US BPP W/O NON-STRESS TEST Medical Imaging Routine resulting from in vitro fertilization in third trimester 02/12/2024 10:29 AM EDT Scheduled Orders Name Type Priority Associated Diagnoses Orde r Schedule US BPP W/O NON-STRESS TEST Medical Imaging Routine resulting from in vitro fertilization in third trimester Expected: 02/12/2024, Expires: 03/13/2025 Health Maintenance Due Date Last Done Comments COVID-19 Vaccine ( season) 2023 Depression Screening 01/21/2025 01/22/2024 DTaP,Tdap,and Td Vaccines (9 - Td or Tdap) 12/07/2033 12/07/2023, 12/27/2018, 02/03/2011, Additional history exists Hepatitis B Completed 12/19/2012, 11/30, 07/16/2012, Additional history exists Pap Smear Discontinued 12/02/2021 Influenza Vaccine (FLU shot) Completed 08/16/2023, 09/13/2016, 08/20/2015, Additional history exists GARDASIL-HPV IMMUNIZATION SERIES Aged Out No longer eligible based on patient's age to complete this topic MENINGOCOCCAL (MENACTRA/MENVEO) Aged Out No longer eligible based on patient's age to complete this topic Pneumococcal Vaccine: Pediatrics (0 to 5 Years) and At-Risk Patients (6 to 64 Years) Aged Out No longer eligible based on patient's age to complete this topic documented as of this encounter Medical Devices Implanted Type Area Fire Hazard Inspector Device Identifier Shelf Expiration Date Model / Serial / Lot T Tube Implanted:Qty: 1 on 09/19/2022 by Leonardo Castro DO at [facility] Right: Ear 02/08/2031 [id number] / / [id number] Tube Ventilation 4.8mmx1.32mm - [id number] Implanted:Qty: 1 on 09/19/2022 by Leonrado Castro DO at OR [facility] Left: Ear [employer] 02/08/2031 [id number] / / [id number] documented as of this encounter Visit Diagnoses Diagnosis Supervision of high risk in third trimester- Primary Unspecified high-risk History of gestational diabetes mellitus (GDM) History of section complicating Previous delivery, unspecified as to episode of care or not applicable Obesity in , antepartum Obesity complicating , childbirth, or the puerperium, antepartum condition or complication Surrogate state, incidental Diet controlled gestational diabetes mellitus (GDM) in third trimester resulting from in vitro fertilization in third trimester documented in this encounter Care Teams Distribution Center Associate Relationship Specialty Start Date End Date Alex Hopkins DO [address] [place] [address] PCP - General Family Medicine 12/30/19 documented as of this encounter
--- OUTSIDE RECORDS SUMMARY | 2024-02-26 08:19 | External Medical Summary | Summary of Care ---
Author Name Unknown Organization [facility] Address [address] [place] [address] Phone [phone] Care Team Providers Care Glass Artist Name Role Phone Alex Hopkins DO Primary Care Provider Reason for Visit * Reason Comments Return Visit Non Stress Test Encounter Details Date Type Department Care Team (Latest Contact Info) Description 02/18/2024 1:45 PM EDT Office Visit Gynecology/Obstetric s Michael'nava Botello [address] [place] [address] Magdalena Patel CRNP [address] [place] [address] Ayan Non Stress Tests Manoj [address] [place] [address] Supervision of high risk in third trimester*; History of gestational diabetes mellitus (GDM); History of section complicating ; Obesity in , antepartum; Surrogate ; Diet controlled gestational diabetes mellitus (GDM) in third trimester; resulting from in vitro fertilization in third trimester Allergies Active Allergy Reactions Criticality Noted Date Comments Sulfa Antibiotics 08/15/2002 documented as of this encounter (statuses as of 02/18/2024) Medications Medication Sig Dispensed Refills Start Date End Date Status 28-0.8 MG Oral Tablet Take by mouth. 0 Active B Complex Vitamins Oral Capsule Take 1 Capsule by mouth in the morning. 0 Active Breast PumpIndications:[place] st feeding status of mother Estimated Date of Delivery: 02/29/24, Z39.1, double electric breast pump 1 Each 0 10/12/2023 Active [employer] Marine SystemsToIdentiGEN Verio Flex System w/Device KitIndications:Diet controlled gestational diabetes mellitus (GDM) in third trimester Use to test blood sugars 4 times daily (fasting, 1 hour after breakfast, lunch, and dinner) 1 Kit 0 12/07/2023 Active [employer] SystemsToStio In Vitro Strip (Glucose Blood)Indications:Di et controlled gestational diabetes mellitus (GDM) in third trimester Use to test blood sugars 4 times daily (fasting, 1 hour after breakfast, lunch, and dinner) 125 Strip 6 12/07/2023 Active Juliet Marine SystemsTouch Delica Lancets 30GIndications:Diet controlled gestational diabetes mellitus (GDM) in third trimester Use to test blood sugars 4 times daily (fasting, 1 hour after breakfast, lunch, and dinner) 200 Each 6 12/07/2023 Active documented as of this encounter (statuses as of 02/18/2024) Active Problems Problem Noted Date Diagnosed Date [...] had some elevated sugars msg sent to [facility] to schedule for FU adapt appt 01/18/2024 Follow up ADAPT compete; Reports Current Health Julianna not working; blood sugars reported WNL, continue diet controlled; phone number provided for Current Health 01/21/24: RPM reviewed. No new blood sugars to review since 01/17; asked patient to provide blood sugars via CH chat or MyG if still having issues with Current Health. 01/28/24: RPM reviewed. Still missing multiple readings; will schedule ADAPT f/u. 01/28/24: RPM reviewed, patient sen readings for and in chat; both days within target. Pt reports increased nausea recently. Scheduled for adapt visit 2024 --KW 02/04/24: RPM reviewed; stable overall; Nutrition visit tomorrow 02/11/24: RPM reviewed; overall stable 02/18/24: RPM reviewed; stable. Continue diet control. Last Assessment & Plan: CONSIDERATIONS: Reviewed etiology [...] Recommend nutrition consult with RDN (Registered Dietitian Research Computing Specialist). Lifestyle changes are also indicated including optimizing [...] as of this encounter (statuses as of 02/18/2024) Resolved Problems Problem Noted Date Diagnosed Date Resolved Date High-risk 08/16/2023 08/21/20 23 IUD contraception 12/30/2019 08/15/2023 documented as of this encounter (statuses as of 02/18/2024) Immunizations Name Administration Dates Next Due DTP [...] money to get more. Never true 08/16/2023 [place] Depression Scale Answer Date Recorded [place] Depression Scale Total 2 01/22/2024 The thought [...] Sign Reading Time Taken Comments Blood Pressure 100/58 02/18/2024 1:46 PM EDT Pulse - - Temperature - - Respiratory Rate - - Oxygen Saturation - - Inhaled Oxygen Concentration - - Weight 73.9 kg (163 lb) 02/18/2024 1:46 PM EDT Height 152.4 cm (5') 02/18/2024 1:46 PM EDT Body Mass Index 31.83 02/18/2024 1:46 PM EDT documented in this encounter Progress Notes * Magdalena Patel CRNP - 02/18/2024 2:23 PM EDT ASSESSMENT assessment with Non-stress Test completed on 02/18/2024 at 38.2weeks gestation for indication of IVF heart baseline: 130 bpm Variability: Moderate Decelerations: absent Accelerations: present Contractions: None NST start time: 1345 NST stop time: 1415 NST strip reviewed, interpreted, and approved by OB provider, KATIE Arauz . NST strip stored in clinic storage file Pt has no concerns. Baby is active. Denies contractions, bleeding, LOF. C/s scheduled for 02/25. KATIE Arauz documented in this encounter Nursing Notes * Safia Desouza LPN - 02/18/2024 2:07 PM EDT 38w3d CARLOST, DARRYL documented in this encounter Plan of Treatment Upcoming Encounters Date Type Department Care Team (Late st Contact Info) Description 02/26/2024 9:00 AM EDT Office Visit Gynecology/Obstetrics [facility] [address] [place] [address] Celena Napoles, JOSE DE JESUS [address] [place] [address] [employer] Stress [facility] [address] [place] [address] 03/04/2024 10:20 AM EDT Office Visit Otolaryngology [facility] [address] [place] [address] Mallory Murray PA-C [address] [place] [address] 03/04/2024 11:30 AM EDT Office Visit Gynecology/Obstetrics [facility] [address] [place] [address] Magdalena Patel CRNP [address] [place] [address] Health Maintenance Due Date Last Done Comments COVID-19 Vaccine (2022- season) 2023 Depression Screening 01/21/2025 01/22/2024 DTaP,Tdap,and [...] this encounter Medical Devices Implanted Type Area Log Washer Device Identifier Shelf Expiration Date Model / Serial / Lot T Tube Implanted:Qty: 1 on 09/19/2022 by Leonardo Castro DO at OR [facility] Right: Ear 02/08/2031 [id number] / / [id number] Tube Ventilation 4.8mmx1.32mm - [id number] Implanted:Qty: 1 on 09/19/2022 by Leonardo Castro DO at OR [facility] Left: Ear [employer] 02/08/2031 [id number] / / [id number] documented as of this encounter Visit Diagnoses [...] trimester documented in this encounter Care Teams Glass Artist Relationship Specialty Start Date End Date Alex Hopkins DO [facility] [place] [address] PCP - General Family Medicine 12/30/19 documented as of this encounter
--- OUTSIDE RECORDS SUMMARY | 2024-02-26 08:19 | External Medical Summary | Summary of Care ---
Author Name Unknown Organization [facility] Address [address] [place] [address] Phone [phone] Care Team Providers Care Event Security Officer Name Role Phone Alex Hopkinskirk Primary Care Provider Reason for Visit * Reason Onset Date Comments Nutritional Services Documentation 02/06/2024 Encounter Details Date Type Department Care Team (Late st Contact Info) Description 02/06/2024 4:30 PM EDT Scheduled Telephone Nutrition Services, [facility] [address] [place] [address] Sade Ordoñez RDN [address] [place] [address] Arrived Allergies Active Allergy Reactions Criticality Noted Date Comments Sulfa Antibiotics 08/15/2002 documented as of this encounter (statuses as of 02/06/2024) Medications Medication Sig Dispensed Refills Start Date End Date Status 28-0.8 MG Oral Tablet Take by mouth. 0 Active B Complex Vitamins Oral Capsule Take 1 Capsule by mouth in the morning. 0 Active Breast PumpIndications:Radha st feeding status of mother Estimated Date of Delivery: 02/29/24, Z39.1, double electric breast pump 1 Each 0 10/12/2023 Active OneTouch Verio Flex System w/Device KitIndications:Diet controlled gestational diabetes mellitus (GDM) in third trimester Use to test blood sugars 4 times daily (fasting, 1 hour after breakfast, lunch, and dinner) 1 Kit 0 12/07/2023 Active OneTouch Verio In Vitro Strip (Glucose Blood)Indications:Di et controlled gestational diabetes mellitus (GDM) in third trimester Use to test blood sugars 4 times daily (fasting, 1 hour after breakfast, lunch, and dinner) 125 Strip 6 12/07/2023 Active CircuitHubTouch Delica Lancets 30GIndications:Diet controlled gestational diabetes mellitus (GDM) in third trimester Use to test blood sugars 4 times daily (fasting, 1 hour after breakfast, lunch, and dinner) 200 Each 6 12/07/2023 Active documented as of this encounter (statuses as of 02/06/2024) Active Problems Problem Noted Date Diagnosed Date [...] had some elevated sugars msg sent to [facility] to schedule for FU adapt appt 01/18/2024 [...] RPM reviewed; stable overall; Nutrition visit tomorrow Last Assessment & Plan: CONSIDERATIONS: Reviewed etiology [...] Recommend nutrition consult with RDN (Registered Dietitian Wine Sales Representative). Lifestyle changes are also indicated including optimizing [...] as of this encounter (statuses as of 02/06/2024) Resolved Problems Problem Noted Date Diagnosed Date Resolved Date High-risk 08/16/2023 08/21/20 23 IUD contraception 12/30/2019 08/15/2023 documented as of this encounter (statuses as of 02/06/2024) Immunizations Name Administration Dates Next Due DTP Vaccine 08/23/1995, 2,1991, 991,1991 DTaP HIB - Dipth/Tet/Acell Pert/HIB 06/1992,1991,1991, 991 Hepatitis B Vaccine 12/19/2012,07/16/2012,2011 Hepatitis B, 0-19 yrs 12/16/1993,07/22/1993,08/2 Hepatitis B, 20+ yrs 12/19/2012,07/16/2012,06/11 MMR - [...] money to get more. Never true 08/16/2023 [place] Depression Scale Answer Date Recorded [place] Depression Scale Total 2 01/22/2024 The thought [...] on file documented as of this encounter Miscellaneous Notes * Telephone Encounter - Sade Ordoñez RDN - 02/06/2024 3:46 PM EDT LMOM- Called to f /u w/patient since visit yesterday Has GDM and was to work on:Nutrition: To improve blood glucose control I will aim for small meals and snacks that include several food groups - asked to contact me if has questions. Sade Cordero RD, LDN, CDE Adz Worker [facility] [phone] documented in this encounter Plan of Treatment Upcoming Encounters Date Type Department Care Team (Late st Contact Info) Description 02/12/2024 9:00 AM EDT Office Visit Gynecology/Obstetrics [facility] [address] [place] [address] Jayy Chong CNM [address] [place] [address] [facility], Non Stress Tests [facility] [address] [place] [address] 02/18/2024 1:45 PM EDT Office Visit Gynecology/Obstetrics [facility] [address] [place] [address] Magdalena Patel CRNP [address] [place] [address] [facility], Non Stress Tests [facility] [address] [place] [address] 02/26/2024 9:00 AM EDT Office Visit Gynecology/Obstetrics [facility] [address] [place] [address] Celena Napoles CNM [address] [place] [address] [facility], Non Stress Tests [facility] [address] [place] [address] 03/04/2024 10:20 AM EDT Office Visit Otolaryngology [facility] [address] [place] [address] Mallory Murray PA-C [address] [place] [address] 03/04/2024 11:30 AM EDT Office Visit Gynecology/Obstetrics [facility] [address] [place] [address] Magdalena Patel CRNP [address] [place] [address] Health Maintenance Due Date Last Done Comments [...] this encounter Medical Devices Implanted Type Area Veterans Rehabilitation Counselor Device Identifier Shelf Expiration Date Model / Serial / Lot T Tube Implanted:Qty: 1 on 09/19/2022 by Leonardo Castro, at OR [facility] Right: Ear 02/08/2031 [id number] / / [id number] Tube Ventilation 4.8mmx1.32mm - [id number] Implanted:Qty: 1 on 09/19/2022 by Leonardo Castro DO at OR [facility] Left: Ear [employer] 02/08/2031 [id number] / / [id number] documented as of this encounter Care Teams Event Security Officer Relationship Specialty Start Date End Date Alex Hopkins DO [address] [place] [address] PCP - General Family Medicine 12/30/19 documented as of this encounter
--- OUTSIDE RECORDS SUMMARY | 2024-02-26 08:19 | External Medical Summary | Summary of Care ---
Author Name Unknown Organization [facility] [address] [facility] [address] Phone [phone] Care Team Providers Care Proof Technician Helper Name Role Phone Alex Hopkins DO Primary Care Provider Reason for Visit * Reason Onset Date Comments Order Request 02/13/2024 Encounter Details Date Type Department Care Team (Late st Contact Info) Description 02/13/2024 Telephone Gynecology/Obstetrics [facility] [address] [place] [address] Jany Billings CRNP [address] [place] [address] Order Request Allergies Active Allergy Reactions Criticality Noted Date Comments Sulfa Antibiotics 08/15/2002 documented as of this encounter (statuses as of 02/13/2024) Medications Medication Sig Dispensed Refills Start Date End Date Status 28-0.8 MG Oral Tablet Take by mouth. 0 Active B Complex Vitamins Oral Capsule Take 1 Capsule by mouth in the morning. 0 Active Breast PumpIndications:Viola st feeding status of mother Estimated Date [...] and dinner) 125 Strip 6 12/07/2023 Active Sway MedicalTouch Delica Lancets 30GIndications:Diet controlled gestational diabetes mellitus (GDM) in third trimester Use to test blood sugars 4 times daily (fasting, 1 hour after breakfast, lunch, and dinner) 200 Each 6 12/07/2023 Active documented as of this encounter (statuses as of 02/13/2024) Active Problems Problem Noted Date Diagnosed Date [...] had some elevated sugars msg sent to [facility] to schedule for FU adapt appt [...] Recommend nutrition consult with RDN (Registered Dietitian User Experience Lead). Lifestyle changes are also indicated including optimizing [...] as of this encounter (statuses as of 02/13/2024) Resolved Problems Problem Noted Date Diagnosed Date Resolved Date High-risk 08/16/2023 08/21/20 23 IUD contraception 12/30/2019 08/15/2023 documented as of this encounter (statuses as of 02/13/2024) Immunizations Name Administration Dates Next Due DTP Vaccine 08/23/1995, 2,1991, 991,1991 DTaP HIB - Dipth/Tet/Acell Pert/HIB 0706/1992,1991,1991, 991 Hepatitis B Vaccine 12/19/2012,07/16/2012,2011 Hepatitis B, [...] money to get more. Never true 08/16/2023 [place] Depression Scale Answer Date Recorded [place] Depression Scale Total 2 01/22/2024 The thought [...] encounter Miscellaneous Notes * Telephone Encounter - Backer, KATIE Green - 02/13/2024 10:51 AM EDT Received breast pump Rx from [employer]. Rx signed and placed in mail pile. KATIE Hernandez documented in this encounter Plan of Treatment Upcoming Encounters Date Type Department Care Team (Late st Contact Info) Description 02/18/2024 1:45 PM EDT Office Visit Gynecology/Obstetrics [facility] [address] [place] [address] Magdalena Patel CRNP [address] [place] [address] Tammy [facility] Stress Tests [facility] [address] [place] [address] 02/26/2024 9:00 AM EDT Office Visit Gynecology/Obstetrics [facility] [address] [place] [address] Celena Napoles, [facility] [address], [place] [address] Tammy Botello Stress Tests [facility] [address] [place] [address] 03/04/2024 10:20 AM EDT Office Visit Otolaryngology [facility] [address] [place] [address] Mallory Murray PA-C [address] [place] [address] 03/04/2024 11:30 AM EDT Office Visit Gynecology/Obstetrics [facility] [address] [place] [address] Magdalena Patel CRNP [address] [place] [address] Health Maintenance Due Date Last Done Comments COVID-19 Vaccine (2022-24 season) 2023 Depression Screening 01/21/2025 01/22/2024 DTaP,Tdap,and [...] this encounter Medical Devices Implanted Type Area Bladder Cleaner Device Identifier Shelf Expiration Date Model / Serial / Lot T Tube Implanted:Qty: 1 on 09/19/2022 by Leonardo Castro DO at OR [facility] Right: Ear 02/08/2031 [id number] / / [id number] Tube Ventilation 4.8mmx1.32mm - [id number] Implanted:Qty: 1 on 09/19/2022 by Leonardo Castro DO at OR [facility] Left: Ear [employer] 02/08/2031 [id number] / / [id number] documented as of this encounter Care Teams Proof Technician Helper Relationship Specialty Start Date End Date Alex Hopkins DO [facility] [place] [address] PCP - General Family Medicine 12/30/19 documented as of this encounter
--- OUTSIDE RECORDS SUMMARY | 2024-02-26 08:20 | External Medical Summary | Summary of Care ---
Author Name Unknown Organization [facility] Address [address] [place] [address] Phone [phone] Care Team Providers Care Metal Fabricating Inspector Name Role Phone Sandeep Alex Floriankirk Primary Care Provider Encounter Details Date Type Department Care Team (Latest Contact Info) Description 01/03/2024 9:30 AM EST Office Visit Doctor Of Dental Surgery Obstetrics Maternal Medicine, [facility] [address] [facility] [place] [address] Mary Lomas, DO [address] [place] [address] resulting from in vitro fertilization in third trimester*; Obesity in , antepartum; Diet controlled gestational diabetes mellitus (GDM) in third trimester; Ultrasound for screening for growth restriction; 31 weeks gestation of Allergies Active Allergy Reactions Criticality Noted Date Comments Sulfa Antibiotics 08/15/2002 documented as of this encounter (statuses as of 01/03/2024) Medications Medication Sig Dispensed Refills Start Date End Date Status 28-0.8 MG Oral Tablet Take by mouth. 0 Active B Complex Vitamins Oral Capsule Take 1 Capsule by mouth in the morning. 0 Active Breast PumpIndications:Radha st feeding status of mother Estimated Date of Delivery: 02/29/24, Z39.1, double electric breast pump 1 Each 0 10/12/2023 Active Mobile Media Info Tech LimitedTouch Verio Flex System w/Device KitIndications:Diet controlled gestational diabetes mellitus (GDM) in third trimester Use to test blood sugars 4 times daily (fasting, 1 hour after breakfast, lunch, and dinner) 1 Kit 0 12/07/2023 Active Amperion In Vitro Strip (Glucose Blood)Indications:Di et controlled gestational diabetes mellitus (GDM) in third trimester Use to test blood sugars 4 times daily (fasting, 1 hour after breakfast, lunch, and dinner) 125 Strip 6 12/07/2023 Active Full Circle Technologiesuch Delica Lancets 30GIndications:Diet controlled gestational diabetes mellitus (GDM) in third trimester Use to test blood sugars 4 times daily (fasting, 1 hour after breakfast, lunch, and dinner) 200 Each 6 12/07/2023 Active documented as of this encounter (statuses as of 01/03/2024) Active Problems Problem Noted Date Diagnosed Date [...] elevated sugars will review again next week Last Assessment & Plan: CONSIDERATIONS: Reviewed etiology [...] Recommend nutrition consult with RDN (Registered Dietitian Furnishings Conservator). Lifestyle changes are also indicated including optimizing [...] with 75-gram glucose load 6-8 weeks . with 12 completed weeks gestation 07/30 Surrogate 08/21/2023 resulting from in vitro fertilization 08/16/2023 Overview: Recommend Maternal Medicine (MFM) level II anatomy scan at 19-20 weeks. Recommend echocardiography by M at 22-24 weeks gestation for patients who [...] as of this encounter (statuses as of 01/03/2024) Resolved Problems Problem Noted Date Diagnosed Date Resolved Date High-risk 08/16/2023 08/21/20 IUD contraception 12/30/2019 08/15/2023 documented as of this encounter (statuses as of 01/03/2024) Immunizations Name Administration Dates Next Due DTP [...] Date Recorded PHQ Adult Total Score 0 01/16/2023 Hunger Vital Sign Answer Date Recorded Within the past 12 months, y ou worried that your food would run out before you got the money to buy more. Never true 08/16/20 23 Within the past 12 months, t he food you bought just didn't last and you didn't have money to get more. Never true 08/16/2023 [place] Depression Scale Answer Date Recorded [place] Depression Scale Total 3 12/21/2023 The thought of harming myself has occurred to me . Never 12/21/2023 Estimated Date of Delivery Comme nts Yes 02/29/2024 Based on Ultraso und Sex and Gender Information Value Date Recorded Sex Assigned at Female 01/04/2021 9:07 AM EST Gender Identity Female 01/04/2021 9:07 AM EST Sexual Orientation Straight 01/04/2021 9: 07 AM EST Job Start Date Occupation Industry Not on file Not on file Not on file documented as of this encounter Progress Notes * Mary Lomas, DO - 01/03/2024 11:14 AM EST Viviana presented today at 31w6d for an ultrasound for the following indications: resulting from in vitro fertilization in third trimester Obesity in , antepartum Diet controlled gestational diabetes mellitus (GDM) in third trimester Ultrasound for screening for growth restriction 31 weeks gestation of Ultrasound summary: Patient presented at 31w 6d for growth assessment. Normal growth with EFW 1999 g at 61%ile. Normal OSEI at 14.3 cm. Cephalic presentation. I reviewed the ultrasound images. Viviana was given the opportunity to meet with me if she had any questions. Please refer to the ultrasound report for additional details about today's ultrasound examination. RECOMMENDATIONS: Recommend follow up ultrasound with MFM in 4-6 weeks for growth secondary to above indications. See prior formal MFM consultation note. Thank you for allowing us to participate in the care of this patient. Please call with any questions. Mary Lomas DO 01/03/2024 11:14 AM documented in this encounter Plan of Treatment Upcoming Encounters Date Type Department Care Team (Late st Contact Info) Description 01/08/2024 8:30 AM EDT Office Visit Gynecology/Obstetrics [facility] [address] [place] [address] Jany Billings CRNP [address] [place] [address] 01/22/2024 8:45 AM EDT Office Visit Gynecology/Obstetrics [facility] [address] [place] [address] Jany Billings CRNP [address] [place] [address] 02/05/2024 8:00 AM EDT Telemedicine Nutrition Services, [place] [address] [place] [address] Sade Ordoñez, [place] [address] [place] [address] 02/05/2024 9:30 AM EDT Office Visit Gynecology/Obstetrics [facility] [address] [place] [address] Magdalena Patel CRNP [address] [place] [address] Ayan Non Stress Tests [facility] [address] [place] [address] 02/12/2024 9:00 AM EDT Office Visit Gynecology/Obstetrics [facility] [address] [place] [address] Jayy Chong, [facility] [address] [place] [address] Tammy Botello Stress Tests Manoj [address] [place] [address] 02/19/2024 9:30 AM EDT Office Visit Gynecology/Obstetrics [facility] [address] [place] [address] Magdalena Patel CRNP [address] [place] [address] Tammy [facility] Stress Tests Manoj [address] [place] [address] 02/26/2024 9:00 AM EDT Office Visit Gynecology/Obstetrics [facility] [address] [place] [address] Celena Napoles, [facility] [address] [place] [address] Tammy Botello Stress Tests [facility] [address] [place] [address] 03/04/2024 10:20 AM EDT Office Visit Otolaryngology [facility] [address] [facility] [place] [address] Mallory Murray PA-C [address] [place] [address] Health Maintenance Due Date Last Done Comments COVID-19 Vaccine (2022-24 season) 2023 Depression Screening 01/17/2024 01/16/2023 DTaP,Tdap,and Td Vaccines (9 - Td or [...] this encounter Medical Devices Implanted Type Area Section Hand Helper Device Identifier Shelf Expiration Date Model / Serial / Lot T Tube Implanted:Qty: 1 on 09/19/2022 by Leonardo Castro DO at OR [facility] Right: Ear 02/08/2031 [id number] / / [id number] Tube Ventilation 4.8mmx1.32mm - [id number] Implanted:Qty: 1 on 09/19/2022 by Leonardo Castro DO at OR [facility] Left: Ear [employer] 02/08/2031 [id number] / / [id number] documented as of this encounter Visit Diagnoses Diagnosis resulting from in vitro fertilization in third trimester- Primary Obesity in , antepartum Obesity complicating , childbirth, or the puerperium, antepartum condition or complication Diet controlled gestational diabetes mellitus (GDM) in third trimester Ultrasound for screening for growth restriction screening for growth retardation using ultrasonics 31 weeks gestation of state, incidental documented in this encounter Care Teams Metal Fabricating Inspector Relationship Specialty Start Date End Date Alex Hopkins DO [address] [place] [address] PCP - General Family Medicine 12/30/19 documented as of this encounter
--- OUTSIDE RECORDS SUMMARY | 2024-02-26 08:20 | External Medical Summary | Summary of Care ---
Author Name Unknown Organization [facility] [address] [facility] [address] Phone [phone] Care Team Providers Care Documentation Writer Name Role Phone Alex Hopkins DO Primary Care Provider Reason for Visit * Reason Comments Return Visit Encounter Details Date Type Department Care Team (Late st Contact Info) Description 01/08/2024 8:30 AM EDT Office Visit Gynecology/Obstetri darrick Botello [address] [place] [address] Jany Billings CRNP [address] [place] [address] Supervision of high risk in third trimester*; resulting from in vitro fertilization in third trimester; Diet controlled gestational diabetes mellitus (GDM) in third trimester; History of gestational diabetes mellitus (GDM); History of section complicating ; Obesity in , antepartum; Surrogate Allergies Active Allergy Reactions Criticality Noted Date Comments Sulfa Antibiotics 08/15/2002 documented as of this encounter (statuses as of 01/08/2024) Medications Medication Sig Dispensed Refills Start Date [...] and dinner) 1 Kit 0 12/07/2023 Active [employer] In Vitro Strip (Glucose Blood)Indications:Di et controlled gestational diabetes mellitus (GDM) in third trimester Use to test blood sugars 4 times daily (fasting, 1 hour after breakfast, lunch, and dinner) 125 Strip 6 12/07/2023 Active [employer] Lancets 30GIndications:Diet controlled gestational diabetes mellitus (GDM) in third trimester Use to test blood sugars 4 times daily (fasting, 1 hour after breakfast, lunch, and dinner) 200 Each 6 12/07/2023 Active documented as of this encounter (statuses as of 01/08/2024) Active Problems Problem Noted Date Diagnosed Date [...] sugars will review again next week 01/07/24-stable Last Assessment & Plan: CONSIDERATIONS: Reviewed etiology [...] Recommend nutrition consult with RDN (Registered Dietitian Metal Cleaner). Lifestyle changes are also indicated including optimizing [...] as of this encounter (statuses as of 01/08/2024) Resolved Problems Problem Noted Date Diagnosed Date Resolved Date High-risk 08/16/2023 08/21/20 IUD contraception 12/30/2019 08/15/2023 documented as of this encounter (statuses as of 01/08/2024) Immunizations Name Administration Dates Next Due DTP [...] money to get more. Never true 08/16/2023 Wells Depression Scale Answer Date Recorded [place] Depression Scale Total 3 12/21/2023 The thought [...] Sign Reading Time Taken Comments Blood Pressure 118/66 01/08/2024 8:27 AM EDT Pulse - - Temperature - - Respiratory Rate - - Oxygen Saturation - - Inhaled Oxygen Concentration - - Weight 73.9 kg (163 lb) 01/08/2024 8:27 AM EDT Height - - Body Mass Index 31.83 12/21/2023 8:13 AM EST documented in this encounter Progress Notes * Jany Billings CRNP - 01/08/2024 8:29 AM EDT 32w4d Doing well; good movement. No leaking/bleeding or ctx. Followed by MFM for growth scans, working with [facility] for GDMA 1. She is regularly reporting blood sugar readings. had a vasectomy. Plan to start weekly NSTs at 36 weeks. Pt to see Krissy today to schedule C/S. Message sent to [facility] scheduling for follow up ultrasound. 2 week return KATIE Hernandez * Natasha Moore LPN - 01/08/2024 8:27 AM EDT 32w4d Denies vaginal bleeding/rom + movement Would like to meet with Krissy to scheduled documented in this encounter Plan of Treatment Upcoming Encounters Date Type Department Care Team (Late st Contact Info) Description 01/22/2024 8:45 AM EDT Office Visit [facility]ne[facility] [place] [address] Jany Billings CRNP [address] [place] [address] 02/04/2024 8:45 AM EDT Office Visit Gynecology/Obstetrics Mayuri Botello [address] [place] [address] Ailyn Campo MD [address] [place] [address] [place] [address] Tammy Botello Stress Tests Manoj [address] [place] [address] 02/05/2024 8:00 AM EDT Telemedicine Nutrition Services, [facility] [address] [place] [address] Sade Ordoñez RDN [address] [place] [address] 02/12/2024 9:00 AM EDT Office Visit Gynecology/Obstetrics Mayuri [facility] [address] [place], [place] [address] Jayy Chong, DEO [address] [place] [address] Ayan, Non Stress Tests Manoj [address] [place] [address] 02/19/2024 9:30 AM EDT Office Visit Gynecology/Obstetrics Mayuri [facility] [address] [place] [address] Magdalena Patel CRNP [address] [place] [address] Ayan Non Stress Tests [facility] [address] [place] [address] 02/26/2024 9:00 AM EDT Office Visit Gynecology/Obstetrics Mayuri [facility] [address] [place], [place] [address] Celena Napoles CNM [address] [place] [address] Ayan Non Stress Tests Manoj [address] [place], [place] [address] 03/04/2024 10:20 AM EDT Office Visit Otolaryngology [facility] [address] [place] [address] Mallory Murray PA-C [address] [place] [address] 03/04/2024 11:30 AM EDT Office Visit Gynecology/Obstetrics Mayuri [facility] [address] [place] [address] Magdalena Patel CRNP [address] [place] [address] Health Maintenance Due Date Last Done Comments [...] this encounter Medical Devices Implanted Type Area Valve Maker Device Identifier Shelf Expiration Date Model / Serial / Lot T Tube Implanted:Qty: 1 on 09/19/2022 by Leonardo Castro DO at OR [facility] Right: Ear 02/08/2031 [id number] / / [id number] Tube Ventilation 4.8mmx1.32mm - [id number] Implanted:Qty: 1 on 09/19/2022 by Leonardo Castro DO at OR [facility] Left: Ear [employer] 02/08/2031 [id number] / / [id number] documented as of this encounter Visit Diagnoses Diagnosis Supervision of high risk in third trimester- Primary Unspecified high-risk resulting from in vitro fertilization in third trimester Diet controlled gestational diabetes mellitus (GDM) in third trimester History of gestational diabetes mellitus (GDM) History of section complicating Previous delivery, unspecified as to episode of care or not applicable Obesity in , antepartum Obesity complicating , childbirth, or the puerperium, antepartum condition or complication Surrogate state, incidental documented in this encounter Care Teams Documentation Writer Relationship Specialty Start Date End Date Alex Hopkins DO [address] [place] [address] PCP - General Family Medicine 12/30/19 documented as of this encounter
--- OUTSIDE RECORDS SUMMARY | 2024-02-26 08:20 | External Medical Summary | Summary of Care ---
Author Name Unknown Organization [facility] Address [address] [place] [address] Phone [phone] Care Team Providers Care Inspector Plug Seam Name Role Phone Alex Hopkins DO Primary Care Provider Reason for Visit * Reason Comments DSMT Follow-Up Encounter Details Date Type Department Care Team (Late st Contact Info) Description 02/05/2024 8:00 AM EDT Telemedicine Nutrition Services, [facility] [address] [place] [address] Sade Ordoñez RDN [address] [place] [address] Diet controlled gestational diabetes mellitus (GDM) in third trimester [O24.410]* Allergies Active Allergy Reactions Criticality Noted Date Comments Sulfa Antibiotics 08/15/2002 documented as of this encounter (statuses as of 02/05/2024) Medications Medication Sig Dispensed Refills Start Date End Date Status 28-0.8 MG Oral Tablet Take by mouth. 0 Active B Complex Vitamins Oral Capsule Take 1 Capsule by mouth in the morning. 0 Active Breast PumpIndications:[address] st feeding status of mother Estimated Date of Delivery: 02/29/24, Z39.1, double electric breast pump 1 Each 0 10/12/2023 Active [employer]Touch Verio Flex System w/Device KitIndications:Diet controlled gestational diabetes mellitus (GDM) in third trimester Use to test blood sugars 4 times daily (fasting, 1 hour after breakfast, lunch, and dinner) 1 Kit 0 12/07/2023 Active [employer] In Vitro Strip (Glucose Blood)Indications:Di et controlled gestational diabetes mellitus (GDM) in third trimester Use to test blood sugars 4 times daily (fasting, 1 hour after breakfast, lunch, and dinner) 125 Strip 6 12/07/2023 Active [employer] Lancets 30GIndications:Diet controlled gestational diabetes mellitus (GDM) in third trimester Use to test blood sugars 4 times daily (fasting, 1 hour after breakfast, lunch, and dinner) 200 Each 6 12/07/2023 Active documented as of this encounter (statuses as of 02/05/2024) Active Problems Problem Noted Date Diagnosed Date [...] had some elevated sugars msg sent to [facility] to schedule for FU adapt appt 01/18/2024 [...] missing multiple readings; will schedule [facility] f/u. 04/01/24: RPM reviewed, patient sen readings for and [...] Recommend nutrition consult with RDN (Registered Dietitian Cable Tool Driller). Lifestyle changes are also indicated including optimizing [...] as of this encounter (statuses as of 02/05/2024) Resolved Problems Problem Noted Date Diagnosed Date Resolved Date High-risk 08/16/2023 08/21/20 23 IUD contraception 12/30/2019 08/15/2023 documented as of this encounter (statuses as of 02/05/2024) Immunizations Name Administration Dates Next Due DTP [...] money to get more. Never true 08/16/2023 [place] Depression Scale Answer Date Recorded [place] Depression Scale Total 2 01/22/2024 The thought [...] as of this encounter Progress Notes * Sade Ordoñez RDN - 02/05/2024 8:00 AM EDT DIABETES SELF-MANAGEMENT TRAINING/FOLLOW UP NOTE Name: Viviana Miller Date: 02/05/2024 Patient location: HOME. I was not in a hospital or clinic location. After connecting through [employer], patient was verified with two unique identifiers. Patient (or authorized legal underwriting account representative) was then informed that this was a Telemedicine visit and being conducted confidentially over secure lines. Methods to assure confidentiality were taken. Patient acknowledged consent and understanding of privacy and security of the Telemedicine visit. The patient agreed to participate. Last order of DIABETES MANAGEMENT EDUCATION (ADA) REFERRAL was found on 12/07/2023 from Refill on 12/07/2023 No order of CLINICAL NUTRITION AND DIABETES EDUCATION ANNUAL RENEWAL is found. No order of PEDIATRIC DIABETES MANAGEMENT EDUCATION (ADA) REFERRAL OP is found. ADA referral in place? Yes Participant scheduled for 1:1 training due to lack of classes scheduled within 2 months of appointment. What diabetes concerns and/or barriers to care would you like to discuss in your appointment: f/u GDM- completed GDM virtual class -due February 28 but scheduled for c section 02/25- sees MFM- today no concerns, sugars have been really good so no issues-has nausea and acid reflux so can't eat much at timeand nothing after dinner due to acid reflux so bad This is 3rd bout of GDM Topics from last visit to attempt to cover today: Was behavior objective from last visit met at least 80% of the time: Nutrition: To improve blood glucose control I will follow meal plan of Breakfast: 15-30 grams carbohydrate Snack: 15-30 grams carbohydrate Lunch: 30-60 grams carbohydrate Snack: 15-30 grams carbohydrate Dinner: 30-60 grams carbohydrate Bedtime snack: 15-30 grams carbohydrate Nutrition: Yes Psychosocial Screening: Lately have you been feeling down, depressed or hopeless most of the day? No How do you manage stress: Not really feel stressed, and exercise helps also reads Food Insecurity: Within the past 12 months, I worried whether our food would run out before we got money to buy more. No Within the past 12 months, the food we bought just did not last and we did not have money to buy more. No Sleep Health: Not addressed Diabetes Medications: none Monitoring blood glucose, interpreting and using results Results for orders placed or performed in visit on 02/08/23 HEMOGLOBIN A1C Result Value Ref Range Hemoglobin A1C 5.1 4.0 - 5.6 % Estimated Average Glucose 100 <126 mg/dL Results for orders placed or performed in visit on 12/30/19 HEMOGLOBIN A1C Result Value Ref Range Hemoglobin A1C 5.4 4.0 - 5.6 % EST AVG GLUCOSE 108 <126 At goal/target Self-Monitoring Blood Glucose Source of Information: Connected to [email or web address] julianna- Fasting <95 and post meals <140 Summary: Hypoglycemia?: Diet: has nausea and acid reflux so can't eat much at time Breakfast: eggs and 1 toast or yakut yogurt w/granola coffee w/ sweet almond milk creamer Snacks: fruit Lunch: varies- microwave dinner cordon blue stuffed chicken w/vegetable like mixed vegetables or asparagus, likes all vegetables no CHO usually Snacks: handful pretzels or crackers or fruit Dinner: protein and vegetable no CHO or sometimes potato or sweet potato Snacks: none Drinks: water all day , sometimes diet soda lunch Takes No cat at home Weight management review: Wt Readings from Last 6 Encounters: 02/04/24 73.9 kg (163 lb) 01/22/24 74.2 kg (163 lb 9.6 oz) 01/08/24 73.9 kg (163 lb) 12/21/23 74.5 kg (164 lb 3.2 oz) 12/07/23 73.9 kg (163 lb) 11/09/23 73.9 kg (163 lb) Weight changes since last visit: Physical Activity: Lift light weights or walk ADA STANDARDS OF CARE/BUNDLE MEASURES Diabetes Bundle / Standards of Care: Gestational Diabetes Participant Therapy Management Plan: Hypertension: BP Readings from Last 3 Encounters: 01/22/24 110/62 01/08/24 118/66 12/21/23 110/70 Gestational Diabetes Participant, being monitored by NURSING HOME MANAGER. Dyslipidemia: Lab Results Component Value Date/Time LDL CHOLESTEROL (CALCULATED) - [facility] 103 02/08/2023 07:21 AM LDL CHOLESTEROL (CALCULATED) - [facility] 103 12/30/2019 10:44 AM LDL CHOLESTEROL (DIRECT MEASURE) - [facility] NOT APPLICABLE 12/30/2019 10:44 AM No components found for: "[id number]" Gestational Diabetes Mellitus Participant Kidney function review: Lab Results Component Value Date/Time ESTIMATED GLOMERULAR FILTRATION RATE - [facility] >90 12/07/2023 07:06 AM ESTIMATED GLOMERULAR FILTRATION RATE - [facility] >60.0 12/30/2019 10:44 AM No results found for: "ALBUMIN / CREATININE RATIO", "ALBUMIN / CREATININE RATIO, URINE - [facility]" No results found for: "PROTEIN/ CREATININE RATIO", "PROTEIN/ CREATININE RATIO, URINE - [facility]" Gestational Diabetes Mellitus Participant DSMT/Diabetes MNT Diagnosis: Inadequate carbohydrate intake related to nausea and acid reflux as evidenced by interview DSMT Follow-up Assessment of Content Areas: Choose the answer that represents the participant's competency in ONLY topics assessed from previous visit and addressed today. Areas taught today must correlate with intervention. If content area not assessed and/or intervened today, it will be deferred to future session. Incorporating nutrition management into lifestyle: Needs review (2) Incorporating physical activity into lifestyle: Comprehends haley points (3) Developing strategies to address psychosocial issues: Demonstrates understanding (4) DSMT/ Diabetes MNT intervention: Nutrition: reviewed good nutrition during , aim for variety healthy foods from all food groups- since reports nausea/ reflux suggested small meals /snacks and include several food groups at each for increased nutrition, Physical Activity: Educated on the role of physical activity on glucose control. Educated on the benefits of exercise and blood glucose lowering effects. Explained briefly the role of exercise in decreasing insulin resistance. Participant Selected Behavioral Objective: Nutrition: To improve blood glucose control I will aim for small meals and snacks that include several food groups Recommended Medication Changes: No changes. Education materials given to participant/caregiver and reviewed during today's visit: None given today Diabetes Self-Management Support:: Possible Future Topics: Content areas that were not assessed in prior visits: All content areas have been assessed. Time Spent With Patient: Time in: 803 am Time out: 828 am Billing: MNT: 30 Minutes (23-37) Plan for Return: Visit date not found none Participant provided with contact information for Diabetes Care and Research Manager. All [facility] providers within the system are able to see [place] [employer] education and outcomes within the participant's electronic medical record. Sade Cordero RDN, NUTR[facility] [employer] Diabetes Care and Research Manager documented in this encounter Plan of Treatment Upcoming Encounters Date Type Department Care Team (Late st Contact Info) Description 02/06/2024 1:45 PM EDT Imaging Radiology, [facility] [address] [place] [address] 02/12/2024 9:00 AM EDT Office Visit Gynecology/Obstetrics Mayuri Botello [address] [place] [address] Jayy Chong, [facility] [address] [place] [address] Ayan, Non Stress Tests Manoj [address] [place] [address] 02/18/2024 1:45 PM EDT Office Visit Gynecology/Obstetrics Mayuri Botello [address] [place] [address] Magdalena Patel CRNP [address] [place] [address] Ayan, Non Stress Tests Manoj [address] [place] [address] 02/26/2024 9:00 AM EDT Office Visit Gynecology/Obstetrics [facility] [address] [place] [address] Celena Napoles, JOSE DE JESUS [address] [place] [address] [facility] [address] [place] [address] 03/04/2024 10:20 AM EDT Office Visit Otolaryngology [facility] [address] [place] [address] Mallory Murray PA-C [address] [place] [address] 03/04/2024 11:30 AM EDT Office Visit Gynecology/Obstetrics [facility] [address] [place] [address] Magdalena Patel CRNP [address] [place] [address] Health Maintenance Due Date Last Done Comments [...] this encounter Medical Devices Implanted Type Area Film Laboratory Technician Device Identifier Shelf Expiration Date Model / Serial / Lot T Tube Implanted:Qty: 1 on 09/19/2022 by Leonardo Castro DO at OR [facility] Right: Ear 02/08/2031 [id number] / / [id number] Tube Ventilation 4.8mmx1.32mm - [id number] Implanted:Qty: 1 on 09/19/2022 by Leonardo Castro DO at OR [facility] Left: Ear [employer] 02/08/2031 [id number] / / [id number] documented as of this encounter Visit Diagnoses Diagnosis Diet controlled gestational diabetes mellitus (GDM) in third trimester [O24.410]- Primary documented in this encounter Care Teams Inspector Plug Seam Relationship Specialty Start Date End Date Alex Hopkins DO [address] [facility] [place] [address] PCP - General Family Medicine 12/30/19 documented as of this encounter
--- OUTSIDE RECORDS SUMMARY | 2024-02-26 08:20 | External Medical Summary | Summary of Care ---
Author Name Unknown Organization [facility] Address [address] [facility] [facility] [address] Phone [phone] Care Team Providers Care Car Repairer Helper Name Role Phone Alex Hopkins DO Primary Care Provider Reason for Visit * Reason Comments Return Visit Encounter Details Date Type Department Care Team (Late st Contact Info) Description 01/22/2024 8:45 AM EDT Office Visit Gynecology/Obstetri darrick Botello [address] [place] [address] Jany Billings CRNP [address] [place] [address] Supervision of high risk in third trimester*; resulting from in vitro fertilization in third trimester; History of gestational diabetes mellitus (GDM); History of section complicating ; Obesity in , antepartum; Surrogate ; Diet controlled gestational diabetes mellitus (GDM) in third trimester Allergies Active Allergy Reactions Criticality Noted Date Comments Sulfa Antibiotics 08/15/2002 documented as of this encounter (statuses as of 01/22/2024) Medications Medication Sig Dispensed Refills Start Date [...] and dinner) 1 Kit 0 12/07/2023 Active [employer] In Vitro Strip (Glucose Blood)Indications:Di et controlled gestational diabetes mellitus (GDM) in third trimester Use to test blood sugars 4 times daily (fasting, 1 hour after breakfast, lunch, and dinner) 125 Strip 6 12/07/2023 Active [employer] Lancets 30GIndications:Diet controlled gestational diabetes mellitus (GDM) in third trimester Use to test blood sugars 4 times daily (fasting, 1 hour after breakfast, lunch, and dinner) 200 Each 6 12/07/2023 Active documented as of this encounter (statuses as of 01/22/2024) Active Problems Problem Noted Date Diagnosed Date [...] 12/11/23: MFM [facility] consult complete. Enrolled in [employer]. Instructions provided to report blood sugars each week for MFM review 12/17/2023- stable 12/24/23-stable 12/31/23-stable; 2 elevated sugars will review again next week 01/07/24-stable 01/14/24- patient had some elevated sugars msg sent to [facility] to schedule for FU adapt appt 01/18/2024 Follow up [facility] compete; Reports Current Health Julianna not working; blood sugars reported WNL, continue diet controlled; phone number provided for Current Health 01/21/24: RPM reviewed. No new blood sugars to review since 01/17; asked patient to provide blood sugars via CH chat or MyG if still having issues with Current Health. Last Assessment & Plan: CONSIDERATIONS: Reviewed etiology [...] Recommend nutrition consult with RDN (Registered Dietitian Automation Analyst). Lifestyle changes are also indicated including optimizing [...] as of this encounter (statuses as of 01/22/2024) Resolved Problems Problem Noted Date Diagnosed Date Resolved Date High-risk 08/16/2023 08/21/20 23 IUD contraception 12/30/2019 08/15/2023 documented as of this encounter (statuses as of 01/22/2024) Immunizations Name Administration Dates Next Due DTP Vaccine 08/23/1995, 2,1991, 991,1991 DTaP HIB - Dipth/Tet/Acell Pert/HIB 07/06/1992,1991,1991, 991 Hepatitis B Vaccine 12/19/2012,07/16/2012,2011 Hepatitis B, [...] money to get more. Never true 08/16/2023 [place] Depression Scale Answer Date Recorded [place] Depression Scale Total 2 01/22/2024 The thought [...] Sign Reading Time Taken Comments Blood Pressure 110/62 01/22/2024 8:45 AM EDT Pulse - - Temperature - - Respiratory Rate - - Oxygen Saturation - - Inhaled Oxygen Concentration - - Weight 74.2 kg (163 lb 9.6 oz) 01/22/2024 8:45 A M EDT Height - - Body Mass Index 31.95 12/21/2023 8:13 AM EST documented in this encounter Progress Notes * Jany Billings CRNP - 01/22/2024 8:47 AM EDT 34w4d Good movement. No regular ctx, leaking/bleeding. Working with [facility] for GDM. Normal growth u/s 3 weeks ago. Has C/S scheduled. Starting NSTs at 36 weeks. Provided labor instructions. 2 week return KATIE Hernandez * Natasha Moore LPN - 01/22/2024 8:46 AM EDT 34w4d Denies vaginal bleeding/rom + movement Labor instructions given No new concerns documented in this encounter Plan of Treatment Upcoming Encounters Date Type Department Care Team (Late st Contact Info) Description 02/04/2024 8:45 AM EDT Office Visit Gynecology/Obstetrics Mayuri Botello [address] [place] [address] Ailyn Campo MD [address] [place], [place] [address] [address] Tammy Botello Stress Tests Manoj [address] [place] [address] 02/05/2024 8:00 AM EDT Telemedicine Nutrition Services, [place] [address] [place] [address] Sade Ordoñez RDN [address] [facility] [address] 02/06/2024 1:45 PM EDT Imaging Radiology, [place] [address] [place] [address] 02/12/2024 9:00 AM EDT Office Visit Gynecology/Obstetrics Mayuri Gamboas [address] [place] [address] Jayy Chong, DEO [address] [place] [address] Tammy Botello Stress Tests Manoj [address] [place] [address] 02/18/2024 1:45 PM EDT Office Visit Gynecology/Obstetrics Mayuri Gamboas [address] [place] [address] Magdalena Patel CRNP [address] [place] [address] Tammy Botello Stress Tests Manoj [address] [place] [address] 02/26/2024 9:00 AM EDT Office Visit Gynecology/Obstetrics Mayuri Gamboas [address] [place] [address] Celena Napoles, DEO [address] [place] [address] Tammy Botello Stress Tests Manoj [address] [place] [address] 03/04/2024 10:20 AM EDT [facility] [address] [place] [address] Mallory Murray PA-C [address] [place] [address] 03/04/2024 11:30 AM EDT Office Visit Gynecology/Obstetrics Mayuri Gamboas [address] [place] [address] Magdalena Patel CRNP [address] [place] [address] Health Maintenance Due Date Last Done Comments [...] this encounter Medical Devices Implanted Type Area Steam Room Attendant Device Identifier Shelf Expiration Date Model / Serial / Lot T Tube Implanted:Qty: 1 on 09/19/2022 by Leonardo Castro DO at OR [facility] Right: Ear 02/08/2031 [id number] / / [id number] Tube Ventilation 4.8mmx1.32mm - [id number] Implanted:Qty: 1 on 09/19/2022 by Leonardo Castro DO at OR [facility] Left: Ear [employer] 02/08/2031 [id number] / / [id number] documented as of this encounter Visit Diagnoses Diagnosis Supervision of high risk in third trimester- Primary Unspecified high-risk resulting from in vitro fertilization in third trimester History of gestational diabetes mellitus (GDM) History of section complicating Previous delivery, unspecified as to episode of care or not applicable Obesity in , antepartum Obesity complicating , childbirth, or the puerperium, antepartum condition or complication Surrogate state, incidental Diet controlled gestational diabetes mellitus (GDM) in third trimester documented in this encounter Care Teams Car Repairer Helper Relationship Specialty Start Date End Date Alex Hopkins DO [address] [place] [address] PCP - General Family Medicine 12/30/19 documented as of this encounter
--- OUTSIDE RECORDS SUMMARY | 2024-02-26 08:20 | External Medical Summary | Summary of Care ---
Author Name Unknown Organization [facility] Address [address] [place] [address] Phone [phone] Care Team Providers Care Animal Care Supervisor Name Role Phone Alex Hopkins DO Primary Care Provider Reason for Visit * Reason Comments Return Visit Encounter Details Date Type Department Care Team (Late st Contact Info) Description 02/04/2024 8:45 AM EDT Office Visit Gynecology/Obstetri cs Mayuri Botello [address] [facility] [place] [address] Ailyn Campo MD [address] [facility] [place] [id number] Tammy Botello Stress Tests Manoj [address] [facility] [place] [address] 36 weeks gestation of *; resulting from in vitro fertilization in third trimester; Supervision of high risk in third trimester; History of gestational diabetes mellitus (GDM); History of section complicating ; Obesity in , antepartum; Surrogate ; Diet controlled gestational diabetes mellitus (GDM) in third trimester Allergies Active Allergy Reactions Criticality Noted Date Comments Sulfa Antibiotics 08/15/2002 documented as of this encounter (statuses as of 02/04/2024) Medications Medication Sig Dispensed Refills Start Date End Date Status 28-0.8 MG Oral Tablet Take by mouth. 0 Active B Complex Vitamins Oral Capsule Take 1 Capsule by mouth in the morning. 0 Active Breast PumpIndications:[place] st feeding status of mother Estimated Date of Delivery: 02/29/24, Z39.1, double electric breast pump 1 Each 0 10/12/2023 Active [employer] Verio Flex System w/Device KitIndications:Diet controlled gestational diabetes mellitus (GDM) in third trimester Use to test blood sugars 4 times daily (fasting, 1 hour after breakfast, lunch, and dinner) 1 Kit 0 12/07/2023 Active [employer] In Vitro Strip (Glucose Blood)Indications:Di et controlled gestational diabetes mellitus (GDM) in third trimester Use to test blood sugars 4 times daily (fasting, 1 hour after breakfast, lunch, and dinner) 125 Strip 6 12/07/2023 Active [employer] Lancets 30GIndications:Diet controlled gestational diabetes mellitus (GDM) in third trimester Use to test blood sugars 4 times daily (fasting, 1 hour after breakfast, lunch, and dinner) 200 Each 6 12/07/2023 Active documented as of this encounter (statuses as of 02/04/2024) Active Problems Problem Noted Date Diagnosed Date [...] Recommend nutrition consult with RDN (Registered Dietitian Social Work Therapist). Lifestyle changes are also indicated including optimizing [...] as of this encounter (statuses as of 02/04/2024) Resolved Problems Problem Noted Date Diagnosed Date Resolved Date High-risk 08/16/2023 08/21/20 23 IUD contraception 12/30/2019 08/15/2023 documented as of this encounter (statuses as of 02/04/2024) Immunizations Name Administration Dates Next Due DTP Vaccine 08/23/1995, 2,1991, 991,1991 DTaP HIB - Dipth/Tet/Acell Pert/HIB /06/1992,1991,1991, 991 Hepatitis B Vaccine 12/19/2012,07/16/2012,2011 Hepatitis B, 0-19 yrs 12/16/1993,07/22/1993,08 Hepatitis B, 20+ yrs 12/19/2012,07/16/2012,06/11 MMR - [...] money to get more. Never true 08/16/2023 [place] Depression Scale Answer Date Recorded [place] Depression Scale Total 2 01/22/2024 The thought [...] Sign Reading Time Taken Comments Blood Pressure - - Pulse - - Temperature - - Respiratory Rate - - Oxygen Saturation - - Inhaled Oxygen Concentration - - Weight 73.9 kg (163 lb) 02/04/2024 8:45 AM EDT Height 152.4 cm (5') 02/04/2024 8:45 AM EDT Body Mass Index 31.83 02/04/2024 8:45 AM EDT documented in this encounter Progress Notes * Ailyn Campo MD - 02/04/2024 8:45 AM EDT H+P 02/04/24 Viivana Miller is a 34 year old at 36w3d by 6 week ultrasound and embryo tranfer with Estimated Date of Delivery: 02/29/24 . She is doing well, denies any contractions, leaking of fluid or vaginal bleeding. Notes good movement. Denies any signs or symptoms of preeclampsia States her sugars "are great". Followed by [facility] Her record is reviewed. CURRENT PROBLEM LIST: Patient Active Problem List Diagnosis Date Noted Diet controlled gestational diabetes mellitus (GDM) in third trimester [O24.410] 12/07/2023 Diagnosed at 28 weeks Nutrition consult ordered [...] had some elevated sugars msg sent to [facility] to schedule for FU adapt appt [...] RPM reviewed; stable overall; Nutrition visit tomorrow Surrogate [Z33.3] 08/21/2023 resulting from in vitro fertilization [O09.819] 08/16/2023 Recommend Maternal Medicine (MFM) level II anatomy scan at 19-20 weeks. Recommend echocardiography by MFM at 22-24 weeks gestation for patients who have had IVF. Recommend MFM growth evaluation if indicated by other existing or maternal conditions. Recommend ultrasound for growth at 28-32 weeks. Recommend weekly NSTs to begin at 36 weeks. Consider delivery at 39 weeks. , supervision, high-risk [O09.90] 08/16/2023 IVF Surrogate carrier Donor egg and biological father's sperm Embryo transfer on 06/13/2023 PIGT: not performed-fresh transfer NIPT: ordered History of gestational diabetes mellitus (GDM) [Z86.32] 08/16/2023 History of gestational diabetes in two previous pregnancies; diet and insulin controlled Has early 1 hour GTT scheduled this week. Lab Results Component Value Date/Time HEMOGLOBIN A1C - [facility] 5.1 02/08/2023 07:21 AM HEMOGLOBIN A1C - [facility] 5.4 12/30/2019 10:44 AM History of section complicating [O34.219] 08/16/2023 History of C-sections x2 Plans repeat elective Obesity in , antepartum [O99.210] 08/16/2023 Pre gravid BMI: 30.2 Class 1 obesity Family history of hypercholesterolemia [Z83.42] 01/04/2021 Dysfunction of eustachian tube [H69.90] 03/12/2012 Viral warts [B07.9] 09/02/2002 ICD-10 update of inactive term OBSTETRIC HISTORY: OB History 3 Para 2 Term 2 0 AB 0 Living 2 SAB 0 IAB 0 Ectopic 0 Multiple 0 Live Births 2 Obstetric Comments 2017, 2018 Fob #1: Bharath 2023: surrogate carrier PAST MEDICAL HISTORY: Past Medical History: Diagnosis Date GDM (gestational diabetes mellitus) RECENT IMMUNIZATIONS: Most Recent Immunizations Administered Date(s) Administered DTP Vaccine 08/23/1995 DTaP HIB - Dipth/Tet/Acell Pert/HIB 05/06/1992 Hepatitis B Vaccine 12/19/2012 Hepatitis B, 0-19 yrs 12/16/1993 Hepatitis B, 20+ yrs 12/19/2012 MMR - Measles/Mumps/Rubella Vaccine 08/23/1995 OPV - Polio Virus Vaccine (Oral) 05/06/1992 Seasonal Influenza, PF, 6 M & above, IM , (FluLaval or Fluzone) 08/16/2023 Seasonal Influenza, Split, IIV3, No Preserve, Inj 08/20/2015 Seasonal Influenza, Split, IIV3, With Preserve, Inj 09/13/2016 TDAP (age 10 and older)(Boostrix) 12/07/2023 PAST SURGICAL HISTORY: Past Surgical History: Procedure Laterality Date CREATE EARDRUM OPENING,GEN'L ANESTH Bilateral 09/19/2022 TYMPANOSTOMY INSERTION TUBE GENERAL ANESTHESIA performed by Leonardo Castro DO at OR [facility] EM[facility] TRANSFER INTRAUTERINE INFORMATION tubes in ears TX DELIVERY ONLY x2 REDUCTION OF BREAST 2010 REMOVE TONSILS & ADENOIDS, UNDER 12 Tonsillectomy/Adenoids,<12 Y/O FAMILY HISTORY: Family History Problem Relation Age of Onset Hypertension Father Hodgkin's lymphoma Sister Breast Cancer Aunt (Unspecified) Other (skin disorders) Other none known in family ALLERGIES: Review of patient's allergies indicates: Allergen Reactions Sulfa Antibiotics SOCIAL HISTORY: Social History Socioeconomic History Marital status: Tobacco Use Smoking status: Never Smokeless tobacco: Never Vaping Use Vaping Use: Never used Substance and Sexual Activity Alcohol use: No Drug use: Never Sexual activity: Yes Partners: Male control/protection: Surgical Comment: vasectomy Social Determinants of Health Food Insecurity: No Food Insecurity (08/16/2023) Hunger Vital Sign Worried About Running Out of Food in the Last Year: Never true Ran Out of Food in the Last Year: Never true Labs: Lab Results CBC HGB: HGB (g/dL) Date Value 12/07/2023 11.6 (L) HCT: HCT (%) Date Value 12/07/2023 35.1 (L) Platelets: PLT (K/uL) Date Value 12/07/2023 279 Type and Screen ABO/RHD: A positive Group B Strep Culture/PCR pending Rubella IGG Antibody Rubella IgG Antibody (no units) Date Value 08/16/2023 Positive (A) One Hour Gestational Glucose, 50G Latest Reference Range & Units 08/21/23 14:20 08/28/23 07:28 08/28/23 08:31 08/28/23 09:29 08/28/23 10:28 12/07/23 07:06 12/07/23 08:12 12/07/23 09:09 12/07/23 10:07 100-g Gestational Glucose, 1 Hour 70 - 179 mg/dL 178 199 (H) 100-g Gestational Glucose, 2 Hour 70 - 154 mg/dL 134 163 (H) 100-g Gestational Glucose, 3 Hour 70 - 139 mg/dL 104 116 100-g Gestational Glucose, Fasting 70 - 94 mg/dL 92 89 50-g Gestational Glucose, 1 Hour 70 - 129 mg/dL 174 (H) (H): Data is abnormally high HIV AG&AB Screen w/Confirmation Latest Reference Range & Units 08/16/23 14:19 HIV Antigen & Antibody Negative Negative Hep B Surface Antigen Hepatitis B Surface Antigen (no units) Date Value 08/16/2023 Negative Hepatitis C Antibody Hepatitis C Antibody (no units) Date Value 08/16/2023 Negative Chlamydia Amplified Chlamydia Trachomatis Result (no units) Date Value 08/16/2023 Negative Neisseria Amplified Neisseria Gonorrhoeae Result (no units) Date Value 08/16/2023 Negative PHYSICAL EXAM: Ht 1.524 m (5') | Wt 73.9 kg (163 lb) | LMP 05/28/2023 (Approximate) | BMI 31.83 kg/m | BSA 1.77 m Body mass index is 31.83 kg/m. Neuro: A&O X3. Lungs: No resp distress, CTA Heart: Regular rate & rhythm Abdomen:Gravid, non-tender External genitalia: Normal anatomy, no lesions or erythema Extremities: No deep calf tenderness bilaterally. No pathologic edema. GBS collected Waiter/Waitress Tourist Class Documentation Provider requested doctorate of chiropractic. Name of doctorate of chiropractic: Roshan Jose LPN ASSESSMENT assessment with Non-stress test completed on 02/04/2024 at 36 3/7 gestation for indication of IVF heart baseline: 145 bpm Variability: Moderate Accelerations: present Decelerations: absent Contractions: None NST strip reviewed, interpreted, and approved by OB provider, Logan Campo. NST strip stored in clinic storage file NST start time: 842 NST stop time: 905 A: 34 year old at 36w3d by LMP and 6 week ultrasound with Estimated Date of Delivery: 02/29/24 History of x2 Desires elective repeat IVF A1 gestational diabetes GBS unknown Class 1 obesity P: Patient to sign consents day of surgery with Dr Crespo Labor and preeclampsia warnings NST weekly until delivery Ailyn Campo MD PhD 02/04/2024 documented in this encounter Nursing Notes * Safia Desouza LPN - 02/04/2024 9:05 AM EDT 36w3d NST, DARRYL, pre-op GBS today. documented in this encounter Plan of Treatment Upcoming Encounters Date Type Department Care Team (Late st Contact Info) Description 02/05/2024 8:00 AM EDT [facility] [address] [place] [address] Sade Ordoñez RDN [address] [place] [address] 02/06/2024 1:45 PM EDT Imaging Radiology, [address] [place] [address] 02/12/2024 9:00 AM EDT Office Visit Gynecology/Obstetrics MichaelPedro Luisnava Botello [address] [place] [address] Jayy Chong, [facility] [address] [place] [address] Tammy Botello Stress Tests Manoj [address] [place] [address] 02/18/2024 1:45 PM EDT Office Visit Gynecology/Obstetrics Mayuri Botello [address] [place] [address] Magdalena Patel CRNP [address] [place] [address] Tammy Botello Stress Tests Manoj [address] [place] [address] 02/26/2024 9:00 AM EDT Office Visit Gynecology/Obstetrics Senianava Botello [address] [place] [address] Celena Napoles, DEO [address] [place] [address] Tammy Botello Stress Tests Manoj [address] [place] [address] 03/04/2024 10:20 AM EDT [facility] [address] [place] [address] Mallory Murray PA-C [address] [place] [address] 03/04/2024 11:30 AM EDT Office Visit Gynecology/Obstetrics [facility] [address] [place] [address] Magdalena Patel CRNP [address] [place] [address] Scheduled Orders Name Type Priority Associated Diagnoses Orde r Schedule GROUP B STREP CULTURE/PCR Lab Routine resulting from in vitro fertilization in third trimester 36 weeks gestation of Expected: 02/04/2024, Expires: 02/03/2025 Health Maintenance Due Date Last Done Comments [...] this encounter Medical Devices Implanted Type Area Hydraulic Technician Device Identifier Shelf Expiration Date Model / Serial / Lot T Tube Implanted:Qty: 1 on 09/19/2022 by Leonardo Castro DO at OR [facility] Right: Ear 02/08/2031 [id number] / / [id number] Tube Ventilation 4.8mmx1.32mm - [id number] Implanted:Qty: 1 on 09/19/2022 by Leonardo Castro DO at OR [facility] Left: Ear [employer] 02/08/2031 [id number] / / [id number] documented as of this encounter Visit Diagnoses Diagnosis 36 weeks gestation of - Primary state, incidental resulting from in vitro fertilization in third trimester Supervision of high risk in third trimester Unspecified high-risk History of gestational diabetes mellitus (GDM) History of section complicating Previous delivery, unspecified as to episode of care or not applicable Obesity in , antepartum Obesity complicating , childbirth, or the puerperium, antepartum condition or complication Surrogate state, incidental Diet controlled gestational diabetes mellitus (GDM) in third trimester documented in this encounter Care Teams Animal Care Supervisor Relationship Specialty Start Date End Date Alex Hopkins DO [address] [place] [address] PCP - General Family Medicine 12/30/19 documented as of this encounter
--- OUTSIDE RECORDS SUMMARY | 2024-02-26 08:20 | External Medical Summary | Summary of Care ---
Author Name Unknown Organization [facility] Address [address] [place] [address] Phone [phone] Care Team Providers Care Bobbin Drier Name Role Phone Alex Hopkins DO Primary Care Provider Reason for Visit * Reason Comments DSMT INITIAL * Evaluate & Treat - Unlimited Visits (Within 10 days (routine)) - Pending Review Specialty Diagnoses / Procedures Referred By Salina atkinson Referred To Contact Warp Tester / Nutrition Services Diagnoses Diet controlled gestational diabetes mellitus (GDM) in third trimester Magdalena Patel CRNP [address] [place] [id number] Referral ID Status Reason Start Date Expiration Date Visits Requested Visits Authorized [id number] Pending Review Specialty Services Required 12/07/[phone] Encounter Details Date Type Department Care Team (Late st Contact Info) Description 01/01/2024 3:00 PM EST Telemedicine Virtual, Nutrition Services [address] [place] [address] Lubna Mir, RDLina [address] [place] [address] [place] [phone] resulting from in vitro fertilization, antepartum*; Supervision of high risk , antepartum; History of gestational diabetes mellitus (GDM); History of section complicating ; Obesity in , antepartum; Surrogate ; Diet controlled gestational diabetes mellitus (GDM) in third trimester Allergies Active Allergy Reactions Criticality Noted Date Comments Sulfa Antibiotics 08/15/2002 documented as of this encounter (statuses as of 01/01/2024) Medications Medication Sig Dispensed Refills Start Date End Date Status 28-0.8 MG Oral Tablet Take by mouth. 0 Active B Complex Vitamins Oral Capsule Take 1 Capsule by mouth in the morning. 0 Active Breast PumpIndications:Radha st feeding status of mother Estimated Date of Delivery: 02/29/24, Z39.1, double electric breast pump 1 Each 0 10/12/2023 Active [employer] Flex System w/Device KitIndications:Diet controlled gestational diabetes mellitus (GDM) in third trimester Use to test blood sugars 4 times daily (fasting, 1 hour after breakfast, lunch, and dinner) 1 Kit 0 12/07/2023 Active [employer] In Vitro Strip (Glucose Blood)Indications:Di et controlled gestational diabetes mellitus (GDM) in third trimester Use to test blood sugars 4 times daily (fasting, 1 hour after breakfast, lunch, and dinner) 125 Strip 6 12/07/2023 Active [employer] DelTimePad Lancets 30GIndications:Diet controlled gestational diabetes mellitus (GDM) in third trimester Use to test blood sugars 4 times daily (fasting, 1 hour after breakfast, lunch, and dinner) 200 Each 6 12/07/2023 Active documented as of this encounter (statuses as of 01/01/2024) Active Problems Problem Noted Date Diagnosed Date [...] Recommend nutrition consult with RDN (Registered Dietitian Financial Secretary). Lifestyle changes are also indicated including optimizing [...] as of this encounter (statuses as of 01/01/2024) Resolved Problems Problem Noted Date Diagnosed Date Resolved Date High-risk 08/16/2023 08/21/20 23 IUD contraception 12/30/2019 08/15/2023 documented as of this encounter (statuses as of 01/01/2024) Immunizations Name Administration Dates Next Due DTP [...] money to get more. Never true 08/16/2023 [place] Depression Scale Answer Date Recorded [place] Depression Scale Total 3 12/21/2023 The thought [...] on file documented as of this encounter Patient Instructions * Patient Instructions* Le Sr, KALE - 01/01/2024 3:38 PM EST Education materials given to participant/caregiver and reviewed during today's visit: Debra Materials: What is Gestational Diabetes? Healthy Meals for Diabetes Understanding Carbohydrates documented in this encounter Progress Notes * Le Sr RDN - 01/01/2024 3:37 PM EST DIABETES SELF-MANAGEMENT TRAINING Gestational Diabetes Group Session Name: Viviana Miller Date: 01/01/2024 Patient location: HOME. I was in a hospital or clinic location. After connecting through [employer],patient was verified with two unique identifiers. Patient (or authorized legal passenger representative) was then informed that this was a Telemedicine visit and being conducted confidentially over secure lines. Methods to assure confidentiality were taken. Patient acknowledged consent and understanding of pr ivacy and security of the Telemedicine visit. The patient agreed to participate. ADA referral in place? Yes What diabetes concerns and/or barriers to care would you like to discuss in your appointment: Diabetes with gestational diabetes. Here for education. What is gestational diabetes? When do I test my blood sugar? Will I need medication for gestational diabetes? What diet do I follow for gestational diabetes? What does exercise do to my blood sugar? Will this go away for me and the baby? What type of diabetes to you have? Gestational Diabetes DSMT Initial Visit Assessment of Content Areas: Choose the answer that represents the participant's competency in each area. All need to be assessed at initial. Areas taught must match intervention. If content area not assessed and/or intervened today, it will be deferred to future session. Diabetes disease process and treatment process: Needs instruction (1) Incorporating nutrition management into lifestyle: Needs instruction (1) Incorporating physical activity into lifestyle: Needs instruction (1) Using medications safely: Needs instruction (1) Monitoring blood glucose, interpreting and using results: Needs instruction (1) Prevention, detection, and treatment of acute complications: Needs instruction (1) Prevention, detection, and treatment of chronic complications: Needs instruction (1) Developing strategies to address psychosocial issues: Needs instruction (1) Developing strategies to promote health/change behavior: Needs instruction (1) Nutrition Diagnosis: Food and Nutrition Related Knowledge Deficit related to limited prior nutrition- related education as evidenced by referral to be seen for gestational diabetes and enrolled in group session for education. DSMT/ Diabetes MNT intervention: Pathophysiology: Defined disease process. Nutrition: GDM nutrition: Educated on rationale and guidelines of nutritional management of GDM. Emphasis on need for carbohydrate control/consistency with structured meal schedule. Taught participant how to read a food label. Importance of also meeting nutritional needs of reinforced. Stressed importance of avoiding sugar sweetened beverages, fruit juices. Encouraged bedtime snack 8-10 hours before fasting test the next day. Recommended starting meal pattern provided = Breakfast: 15-30 grams carbohydrate Snack: 15-30 grams carbohydrate Lunch: 30-60 grams carbohydrate Snack: 15-30 grams carbohydrate Dinner: 30-60 grams carbohydrate Bedtime snack: 15-30 grams carbohydrate Physical Activity: Educated on the role of physical activity on glucose control. Educated on the options for physical activity given participant's diabetes complications or other health issues. Medication: Reviewed that due to hormonal insulin resistance in , there may be a need for medication to achieve blood glucose levels in target. Monitoring: blood glucose and targets: Educated on blood glucose monitoring and recommended testing times of fasting and 1-OR 2-hour post meals with targets of less than 95 fasting, 1-hour post meal ofless than 140 OR 2-hour post meal of less than 120. Encouraged logging blood glucoses and reported readings 1 time weekly to care team. Chronic Complications: Educated on the risks of uncontrolled blood glucose during and post for mom and /. Promote health/Change behavior: : Educated on the effects of diabetes prior to and during . Reviewed importance of glucose screening after having gestational diabetes. Participant Selected Behavioral Objective: Nutrition: To improve blood glucose control I will follow meal plan of Breakfast: 15-30 grams carbohydrate Snack: 15-30 grams carbohydrate Lunch: 30-60 grams carbohydrate Snack: 15-30 grams carbohydrate Dinner: 30-60 grams carbohydrate Bedtime snack: 15-30 grams carbohydrate Education materials given to participant/caregiver and reviewed during today's visit: Debra Materials: What is Gestational Diabetes? Healthy Meals for Diabetes Understanding Carbohydrates Possible Future Topics: Content areas that were not assessed in first visit: Acute complications Psychosocial/healthy coping Time Spent With Patient: Time in: 3:06 PM Time out: 3:54 PM Billing: DSMT: 1 unit of DSMT, 30 minutes This visit was completed as a virtual group session. Plan for Return: 2-4 week return Participant provided with contact information for Diabetes Care and Weather Strip Mechanic. All [facility] providers within the system are able to see ADA education and outcomes within the participant electronic medical record. Lubna Mir RDN, Diabetes Care and Weather Strip Mechanic Le Sr RDN, NUTRITION SERVICES VIRTUAL Diabetes Care and Weather Strip Mechanic documented in this encounter Miscellaneous Notes * Pt Handout (on AVS) - Le Sr RDN - 01/01/2024 3:39 PM EST Images from the original note were not included. [id number] What Is Gestational Diabetes? Diabetes is when your body doesn?t use blood sugar normally. Gestational diabetes happens only in . When food is digested, it turns into sugar (glucose) that goes into your bloodstream. Yourbody sends out insulin. This is a hormone that helps your cells use this blood sugar for energy. Changes in your body during may affect this process. This can cause your blood sugar to be too high. This can cause problems for both you and your baby. You can take steps to control your blood sugar. This will help reduce the risks for you and your baby. Managing gestational diabetes You need to control your blood sugar while you are . Your healthcare team will help you make a plan to do this. This plan will include: Eating the right foods. This is the main way to control your blood sugar. You need to eat a variety of healthy foods each day. To help you plan changes in your diet, you will likely work with a registered dietitian. This is an expert on food and nutrition. The dietitian may have you take part kitty nutrition program to help you reach your goals. Getting exercise. Your body uses more blood sugar when you exercise. Your healthcare team can help you pick the best kinds of exercise for you. Checking your blood sugar. You will likely need to check your blood sugar at home. You will do this 2 or more times a day. Your healthcare team will teach you how. They will talk with you about your blood sugar goals. Your blood sugar may also be tested every week or so at a clinic. If your blood sugar stays too high, you may need to have insulin shots during your . Risks to your baby If your blood sugar stays high, your baby is at risk for these problems: Your baby may grow too large. If your blood sugar stays too high, your baby may grow too large. This is called macrosomia. This means a baby is too big for a safe vaginal . A large baby may get their shoulder stuck behind the pubic bone during . This is called shoulder dystocia. The baby's arms and shoulders could be injured. This may cause permanent arm damage. The baby may also have low oxygen levels (hypoxia) while they are stuck. Hypoxia can lead to cerebral palsy. In rare cases, it can lead to . Your baby?s organs may not be fully grown at . If you have diabetes, your baby may need to be delivered early. This may be because of problems with the . Or it may be because of risks to you or your baby. If your baby is delivered early, their lungs may not work well. This is called respiratory distress syndrome. Your baby's liver also may not work normally. And your baby may have yellow color in their skin and eyes (jaundice) after . Your baby?s blood sugar may be low after . If your blood sugar is too high, your baby makesextra insulin. The baby will keep making extra insulin right after . Your baby may need to be treated for low blood sugar. Your baby could be stillborn. This is very rare. But your baby could before if your blood sugar stays high for too long. Risks to you If you don?t control your blood sugar, you are more likely to have: High blood pressure. High blood sugar makes you more likely to have high blood pressure during your . This is a danger to your health. It could lead to early delivery for your baby. Infections. High blood sugar makes you more likely to have bladder, kidney, and vaginal infections. Trouble breathing. You may feel short of breath. High blood sugar can cause too much fluid around the baby. This is called polyhydramnios. Your abdomen gets big and pushes up on your lungs. Difficult labor. Your delivery may be harder. And your recovery may take longer. If your blood sugar stays too high, your baby may grow too large. A large baby might cause injury to you during . Or the baby may have to be delivered by section (). This means making a cut (incision) in your abdomen and uterus. A is a common risk of gestational diabetes. Reduce your future risk for type 2 diabetes Women who have gestational diabetes are at higher risk of type 2 diabetes later. You are also at higher risk for gestational diabetes in your next . You can help reduce your risk in these ways: Lose excess weight. Be as active as you can. Eat more fruits and vegetables. Eat fewer processed foods. Get regular blood tests to check for diabetes. Who is at risk for gestational diabetes? You're more at risk if you: Are overweight Have a family history of diabetes Have had a baby who before Had gestational diabetes in the past Are , , , [place] or [place] , or How daily issues affect your health Many things in your daily life impact your health. This can include transportation, money problems,housing, access to food, and childcare. If you can?t get to medical appointments, you may not receive the care you need. When money is tight, it may be difficult to pay for medicines. And living far from a grocery store can make it hard to buy healthy food. If you have concerns in any of these or other areas, talk with your healthcare team. They may know of local resources to assist you. Or they may have a staff person who can help. Last Reviewed Date: 05/29/202319996951-0047 [employer]. All rights reserved. This information is not intended as a substitute for professional medical care. Always follow your healthcare professional's instructions. * Pt Handout (on AVS) - Le Sr RDN - 01/01/2024 3:39 PM EST Images from the original note were not included. [id number] Understanding Carbohydrates A car needs the right type of fuel to run. And you need the right kind of food to function. To keepyour energy level up, your body needs food that has carbohydrates (carbs). But carbs raise blood sugar levels higher and faster than other kinds of food. Your dietitian will work with you to figure out the amount of carbs you need. Carbs come in 3 types: starches, sugars, and fiber. Starches Starches are found in grains, some vegetables, and beans. Grain products include bread, pasta, cereal, and tortillas. Starchy vegetables include potatoes, peas, corn, arce beans, yams, and squash. Kidney beans, ham beans, black beans, garbanzo beans, and lentils also have starches. Sugars Sugars are found naturally in many foods. Or they can be added. Foods that contain natural sugar include fruits and fruit juices, dairy products, honey, and molasses. Added sugars are found in most desserts, processed foods, candy, regular soda, and fruit drinks. These are very helpful to treat lowblood sugar (hypoglycemia). They give you sugar quickly. Try to keep at least 15 to 20 grams of these simple sugars with you at all times. Eat or drink these if you start to have symptoms of low blood sugar. Fiber Fiber comes from plant foods. Your body can't digest most fiber. Instead of raising blood sugar levels like other carbs, fiber stops blood sugar from rising too fast. Fiber is found in fruits, vegetables, whole grains, beans, peas, and many nuts. Carb counting Keep track of the amount of carbs you eat. This can help you keep the right balance of carbs, physical activity, and medicine. The amount of carbs you need will be different from what other people need. How much you need depends on many things. These include your health, the medicines you take, andhow active you are. Your healthcare team will help you figure out the right amount of carbs for you. You may start with 45 to 60 grams of carbs per meal, depending on your case. Carb counting is a system that helps you keep track of the carbohydrates you eat at each meal. Carbs come from many foods. These include grains, starchy vegetables, fruit, milk, beans, and snackfoods. You can either count carbohydrate grams or carbohydrate servings. When you count carbohydrate servings, 1 carbohydrate serving = 15 grams of carbohydrates. Here are some examples of foods that have about 15 grams of carbs (1 serving of carbohydrates): 1/2 cup of canned or frozen fruit A small piece of fresh fruit (4 ounces) 1 slice of bread 1/2 cup of oatmeal 1/3 cup of rice 4 to 6 crackers 1/2 Nigerian muffin 1/2 cup of black beans 1/4 of a large baked potato (3 ounces) 2/3 cup of plain fat-free yogurt 1 cup of soup 1/2 cup of casserole 6 chicken nuggets [id number] brownie or cake without frosting 2 small cookies 1/2 cup of ice cream or sherbet Carb counting is easier when food labels are available. Look at the label to see how many grams of total carbs per serving the food contains. Then you can figure out how much you should eat. If your food doesn't have a nutrition label, you should be able to get an idea how many carbs there are per serving by using a book or website. Two very important lines to look at on the label are the serving size and the total carbohydrate amount per serving. Here are some tips for using food labels to count your carbs: Check the serving size. The information on the label is based on that serving size. If you eat more than the listed serving size, you may have to double or triple the other information on the label. Check the total grams of carbs. Total carbohydrate from the label includes sugar, starch, and fiber. Be sure to use the total carbohydrate number (minus the fiber) and not sugar alone. Know how many grams of carbs you can have. Be familiar with the matching portion sizes. Compare labels. Compare the labels of different products. Look at serving sizes and total carbs to find the products that work best for you. Don't forget protein and fat. With the focus on carb counting, it might be easy to forget protein and fat in your meals. Don't forget to include sources of protein and healthy fat to balance your meals. Also watch how much salt (sodium) you eat. This is especially true if you have high blood pressure. If you have diabetes, limit the amount of sodium to less than 2,300 mg a day. It?s also important to be consistent with the amount of carbs and time you eat when taking a fixed dose of diabetes medicine. Work with your healthcare provider or dietitian if you need more help. They can help you keep track of your carbs. They can also help you figure out how many grams of carbs you should have. Last Reviewed Date: 09/28/202119994779-5156 [employer]. All rights reserved. This information is not intended as a substitute for professional medical care. Always follow your healthcare professional's instructions. * Pt Handout (on AVS) - Le Sr RDN - 01/01/2024 3:38 PM EST Images from the original note were not included. [address] Healthy Meals for Diabetes Ask your healthcare team to help you make a meal plan that fits your needs. Your meal plan tells you when to eat your meals and snacks, what kinds of foods to eat, and how much of each food to eat. You don?t have to give up all the foods you like. But you do need to follow some guidelines. A healthcare provider will help you develop a meal plan that fits your needs. Choose healthy carbohydrates Starches, sugars, and fiber are all types of carbohydrates (carbs). Carbs can get a bad reputation,especially since they affect your blood sugar. But your body benefits from the right amount of healthy carbs. Fiber can help lower your cholesterol and triglycerides. Fiber is also healthy for your heart. You should have 20 to 35 grams of total fiber each day. Fiber comes from plants. Fiber-rich foods include: Whole-grain breads and cereals Nuts Brown rice and quinoa Whole-wheat pasta Fruits and vegetables Beans and peas Keep track of the amount of carbs you eat. This can help you keep the right balance of physical activity and medicine. The amount of carbs needed will vary for each person. It depends on many things such as your health, the medicines you take, and how active you are. Your healthcare team will help you figure out the right amount of carbs for you. You may start with around 45 to 60 grams of carbs per meal, depending on your situation. Here are some examples of foods containing about 15 grams of carbs (1 serving of carbs): 1/2 cup of canned or frozen fruit A small piece of fresh fruit (4 ounces) 1 slice of bread 1/2 cup of oatmeal 1/3 cup of rice 4 to 6 crackers 1/2 Nigerian muffin 1/2 cup of black beans 1/4 of a large baked potato (3 ounces) 2/3 cup of plain fat-free yogurt 1 cup of soup 1/2 cup of casserole 6 chicken nuggets [id number]-wnyaee brownie or cake without frosting 2 small cookies 1/2 cup of ice cream or sherbet Choose healthy protein foods Proteins plays a haley role in building healthy muscles, bones, skin, and many other parts of your body. Eating protein that's low in fat can help you control your weight. It also helps keep your hearthealthy. Low-fat protein foods include: Fish Plant proteins, such as lentils, beans, peas, nuts, and soy products like tofu and soymilk Lean meat with all visible fat removed Poultry with the skin removed Low-fat or nonfat milk, cheese, and yogurt Limit unhealthy fats and sugar Saturated and trans fats are unhealthy for your heart. They raise LDL ("bad") cholesterol. Fat is also high in calories, so it can make you gain weight. To cut down on unhealthy fats and sugar, limitthese foods: Butter or margarine Palm and palm kernel oils and coconut oil Cream Cheese Fernando Lunch meats Ice cream Sweet bakery goods such as pies, muffins, and donuts Jams and jellies Candy bars Regular sodas How much to eat The amount of food you eat affects your blood sugar. It also affects your weight. Your healthcare team will tell you how much of each type of food you should eat. Use measuring cups and spoons and a food scale to measure serving sizes. Learn what a correct serving size looks like on your plate. This will help when you're away frommoody hospitale and can?t measure your servings. For instance, a serving of meat is about the size of the palmof your hand. Eat only the number of servings given on your meal plan for each food. Don?t take seconds. Learn to read food labels. Be sure to look at serving size, total carbohydrates, fiber, calories, sugar, salt, and saturated and trans fats. Look for healthier options to foods that have added sugar or salt. Plan ahead for parties. Then you can still have a good time without going overboard with unhealthy food choices. Set a good example yourself by bringing a healthy dish to [place]. Choose healthy snacks When it comes to snacks, we often think about foods with added sugar and fats. But there are many other options for healthier snack choices. Here are a few snack ideas to choose from: Snacks with less than 5 grams of carbohydrates 1 piece of string cheese 3 celery sticks plus 1 tablespoon of peanut butter 5 penn tomatoes plus 1 tablespoon of ranch dressing 1 hard-boiled egg 1/4 cup of fresh blueberries 5 baby carrots 1 cup of light popcorn 1/2 cup of sugar-free gelatin 15 almonds Snacks with about 10 to 20 grams of carbohydrates 1/3 cup of hummus plus 1 cup of fresh cut nonstarchy vegetables (carrots, green peppers, broccoli, celery, or a mix) 1/2 cup of fresh or canned fruit plus 1/4 cup of cottage cheese 1/2 cup of tuna salad with 4 crackers 2 rice cakes and a tablespoon of peanut butter 1 small apple or orange 3 cups light popcorn 1/2 of a turkey sandwich (1 slice of whole-wheat bread, 2 ounces of turkey, and mustard) Portion sizes are important to controlling your blood sugar and staying at a healthy weight. Stock up on healthy snack items so you always have them on hand. When to eat Your meal plan will likely include breakfast, lunch, dinner, and some snacks. Try to eat your meals and snacks at about the same times each day. Eat all your meals and snacks. Skipping a meal or snack can make your blood sugar drop too low. It can also cause you to eat too much at the next meal or snack. Then your blood sugar could get toohigh. Last Reviewed Date: 09/28/202119996330-1833 [employer] Touch. All rights reserved. This information is not intended as a substitute for professional medical care. Always follow your healthcare professional's instructions. documented in this encounter Plan of Treatment Upcoming Encounters Date Type Department Care Team (Late st Contact Info) Description 01/03/2024 9:30 AM EST Imaging Maternal Medicine Imaging, Manoj Botello [address] [place] [phone] 01/08/2024 8:30 AM EDT Office Visit Gynecology/Obstetrics Rodriguezmelanie Botello [address] [place] [address] Jany Billings CRNP [address] [place] [address] 01/22/2024 8:45 AM EDT Office Visit Gynecology/Obstetrics Mayuri Botello [address] [place] [address] Jany Billings CRNP [address] [place] [address] 02/05/2024 9:30 AM EDT Office Visit Gynecology/Obstetrics Mayuri Botello [address] [place] [address] Magdalena Patel CRNP [address] [place], [place] [address] Ayan Non Stress Tests Manoj [address] [place] [address] 02/12/2024 9:00 AM EDT Office Visit Gynecology/Obstetrics Mayuri Botello [address] [place] [address] Jayy Chong, [address] [place] [address] yAan Non Stress Tests [facility] [address] [place] [address] 02/19/2024 9:30 AM EDT Office Visit Gynecology/Obstetrics [facility] [address] [place] [address] Magdalena Patel CRNP [address] [place] [address] Ayan Non Stress Tests [facility] [address] [place] [address] 02/26/2024 9:00 AM EDT Office Visit Gynecology/Obstetrics [facility] [address] [place] [address] Celena Napoles, JOSE DE JESUS [address] [facility] [address] Ayan Non Stress Tests [facility] [address] [place] [address] 03/04/2024 10:20 AM EDT Office Visit Otolaryngology [facility] [address] [place] [address] Mallory Murray PA-C [address] [place] [address] Scheduled Referrals Name Type Priority Associated Diagnoses Orde r Schedule DIABETES MANAGEMENT EDUCATION (ADA) REFERRAL Referral Within 10 days (routine) Diet controlled gestational diabetes mellitus (GDM) in third trimester Ordered: 12/07/2023 Health Maintenance Due Date Last Done Comments COVID-19 Vaccine (2022- season) 2023 Depression Screening 01/17/2024 01/16/2023 DTaP,Tdap,and [...] this encounter Medical Devices Implanted Type Area Software Quality Test Engineer Device Identifier Shelf Expiration Date Model / Serial / Lot T Tube Implanted:Qty: 1 on 09/19/2022 by Leonardo Castro DO at OR [facility] Right: Ear 02/08/2031 [id number] / / [id number] Tube Ventilation 4.8mmx1.32mm - [id number] Implanted:Qty: 1 on 09/19/2022 by Leonardo Castro DO at OR [facility] Left: Ear [employer] 02/08/2031 [id number] / / [id number] documented as of this encounter Visit Diagnoses Diagnosis resulting from in vitro fertilization, antepartum- Primary Supervision of high risk , antepartum History of gestational diabetes mellitus (GDM) History of section complicating Previous delivery, unspecified as to episode of care or not applicable Obesity in , antepartum Obesity complicating , childbirth, or the puerperium, antepartum condition or complication Surrogate state, incidental Diet controlled gestational diabetes mellitus (GDM) in third trimester documented in this encounter Care Teams Bobbin Drier Relationship Specialty Start Date End Date Alex Hopkins DO [address] [place] [address] PCP - General Family Medicine 12/30/19 documented as of this encounter
--- OUTSIDE RECORDS SUMMARY | 2024-02-26 08:20 | External Medical Summary ---
Author Name Unknown Address Unknown Organization K01:LABORATORY [facility] - [facility] [address] [facility] [address] Laboratory Report Ordering Provider Test Date Status KOFFILONG 02/04/2024 09:44:37 Final Observation Date Value Abnormality Reference (Units ) Status Streptococcus agalactiae DNA [Presence] in Specimen by NABILA with probe detection 02/04/2024 09:44:37 Negative Negative Final No Group B Streptococcus det ected by culture-enhanced PCR (amplified probe).
The collection of vaginal/rectal swab specimen combinations (FDA approved specimen type) is optimal for the detection of Group B Streptococcus. Single source collection (vaginal only or rectal only) or alternate specimen sources may lead to false negative results. Performing Location LABORATORY [facility] - [address] [facility] [address]
--- OUTSIDE RECORDS SUMMARY | 2024-02-26 08:20 | External Medical Summary | Summary of Care ---
Author Name Unknown Organization [facility] Address [address] [place] [address] Phone [phone] Care Team Providers Care Real Estate Legal Secretary Name Role Phone Alex Hopkins DO Primary Care Provider Reason for Visit * Reason Comments Follow Up Gestational diabetes management Encounter Details Date Type Department Care Team (Late st Contact Info) Description 01/18/2024 8:30 AM EDT Telemedicine Nozzle Tender Obstetrics Maternal Medicine, [address] [facility] [address] [place] [address] Leidy Lucas, KATIE [address] [facility] [address] [place] [address] Diet controlled gestational diabetes mellitus (GDM) in third trimester*; Supervision of high risk , antepartum, third trimester; 34 weeks gestation of Allergies Active Allergy Reactions Criticality Noted Date Comments Sulfa Antibiotics 08/15/2002 documented as of this encounter (statuses as of 01/18/2024) Medications Medication Sig Dispensed Refills Start Date [...] and dinner) 1 Kit 0 12/07/2023 Active Hightowerio In Vitro Strip (Glucose Blood)Indications:Di et controlled gestational diabetes mellitus (GDM) in third trimester Use to test blood sugars 4 times daily (fasting, 1 hour after breakfast, lunch, and dinner) 125 Strip 6 12/07/2023 Active Phone2ActionTouch Delica Lancets 30GIndications:Diet controlled gestational diabetes mellitus (GDM) in third trimester Use to test blood sugars 4 times daily (fasting, 1 hour after breakfast, lunch, and dinner) 200 Each 6 12/07/2023 Active documented as of this encounter (statuses as of 01/18/2024) Active Problems Problem Noted Date Diagnosed Date [...] sugars msg sent to [facility] to schedule for FU adapt appt 01/18/2024 Follow up ADAPT compete; Reports Current Health Julianna not working; blood sugars reported WNL, continue diet controlled; phone number provided for Current Health Last Assessment & Plan: CONSIDERATIONS: Reviewed etiology [...] Recommend nutrition consult with RDN (Registered Dietitian Legal Summer Intern). Lifestyle changes are also indicated including optimizing [...] as of this encounter (statuses as of 01/18/2024) Resolved Problems Problem Noted Date Diagnosed Date Resolved Date High-risk 08/16/2023 08/21/20 23 IUD contraception 12/30/2019 08/15/2023 documented as of this encounter (statuses as of 01/18/2024) Immunizations Name Administration Dates Next Due DTP [...] money to get more. Never true 08/16/2023 [place] Depression Scale Answer Date Recorded [place] Depression Scale Total 3 12/21/2023 The thought [...] as of this encounter Progress Notes * Leidy Lucas CRNP - 01/18/2024 8:33 AM EDT Images from the original note were not included. MATERNAL MEDICINE VISIT Patient location: HOME. I was in a hospital or clinic location. After connecting through televideo,patient was verified with two unique identifiers. Patient (or authorized legal phlebotomy services representative) was then informed that this was a Telemedicine visit and being conducted confidentially over secure lines. Methods to assure confidentiality were taken. Patient acknowledged consent and understanding of pr ivacy and security of the Telemedicine visit. The patient agreed to participate. Viviana Miller is a 33 year old year old with intrauterine at 34w0d who presents to [facility] for management of diabetes in . CC/HPI: Here for f/u visit. Current issues include: Reports Current Health Julianna not working Current management: diet controlled Diet: gestational diabetes diet Exercise: walking and light weight Hypoglycemia episodes:N/A Recent growth scan: [facility] US: 01/03/24 at 31w6d OSEI: 14.3 cm EFW: 1999 g (61 % Hadlock) Glucose review: Hemoglobin A1C last 3 results: Lab Results Component Value Date/Time HEMOGLOBIN A1C - [facility] 5.1 02/08/2023 07:21 AM HEMOGLOBIN A1C - [facility] 5.4 12/30/2019 10:44 AM She reports her home blood glucose as following: DATE Fasting 1 hr after Breakfast 1 hr after Lunch 1 hr after Dinner 01/15/24 86 124 88 117 01/16/24 86 85 104 98 01/17/24 x x x x 01/18/24 89 x x x REVIEW OF SYSTEMS: headaches: no nausea/vomiting: reports occas nausea reports movement: yes abdominal pain/tenderness/cramping/contractions: no vaginal bleeding: no vaginal leaking of fluid: no all other systems negative PHYSICAL EXAM: LMP 05/28/2023 (Approximate) Constitutional: pleasant, well-developed, well nourished General: pleasant, alert and oriented Neuro: mood and affect normal, alert and oriented, no acute distress DISCUSSION: -We discussed continuing to test blood sugars 4 times a day (fasting, one hour after breakfast, lunch, and dinner) -Briefly reviewed GDM diet recommendations including, avoiding processed suagars, sweetened drinks,white flour. Advised compliance with Legal Summer Intern consult. -We discussed eating a snack to help with sugar control in the fasting timeframe. -Encouraged 20-30 minutes a day of exercise (walking, light upper body strength training, yoga, stationary cycling, or swimming) -We discussed the goal of euglycemia in order to create a stable environment for the fetus. She is aware that with diabetes are at increased risk for multiple complications to both mother and fetus -I encouraged the patient to reach out to [facility] in the event that she has any questions regarding diabetes management. RECOMMENDATIONS: Management: continue diet controlled Scheduled on 02/06/[address] Lomas for growth scan Follow up for glucose management in 1 week via [employer] Julianna. [employer] phone number [phone] Thank you for allowing us to participate in the care of this patient. Please call with any questions. KAITE Rader 01/18/2024 9:01 AM documented in this encounter Plan of Treatment Upcoming Encounters Date Type Department Care Team (Late st Contact Info) Description 01/22/2024 8:45 AM EDT Office Visit Gynecology/Obstetrics Mayuri Botello [address] [place] [address] Jany Billings CRNP [address] [place] [address] 02/04/2024 8:45 AM EDT Office Visit Gynecology/Obstetrics Mayuri Gamboas [address] [place] [address] Ailyn Campo MD [address] [place] [address] Ayan, Non Stress Tests Manoj [address] [place] [address] 02/05/2024 8:00 AM EDT [facility] [address] [place] [address] Sade Ordoñez RDN [address] [place] [address] 02/06/2024 1:45 PM EDT Imaging Radiology, [facility] [address] [place] [address] 02/12/2024 9:00 AM EDT Office Visit Gynecology/Obstetrics Mayuri Gamboas 132 [facility] [place] [address] Jayy Chong CNM [address] [place] [address] Tammy Botello Stress Tests Manoj [address] [place] [address] 02/19/2024 9:30 AM EDT Office Visit Gynecology/Obstetrics Mayuri Gamboas [address] [place] [address] Magdalena Patel CRNP [address] [place] [address] Tammy Botello Stress Tests Manoj [address] [place] [address] 02/26/2024 9:00 AM EDT Office Visit Gynecology/Obstetrics Mayuri Gamboas [address] [place] [address] Celena Napoles, DEO [address] [place] [address] Tammy Botello Stress Tests Manoj [address] [place] [address] 03/04/2024 10:20 AM EDT Office Visit Otolaryngology Mayuri [facility] [address] [place] [address] Mallory Murray PA-C [address] [place] [address] 03/04/2024 11:30 AM EDT Office Visit Gynecology/Obstetrics Mayuri Botello [address] [place] [address] Magdalena Patel CRNP [address] [place] [address] Health Maintenance Due Date Last Done Comments [...] this encounter Medical Devices Implanted Type Area Newspaper Or Periodical Editor Device Identifier Shelf Expiration Date Model / Serial / Lot T Tube Implanted:Qty: 1 on 09/19/2022 by Leonardo Castro DO at OR [facility] Right: Ear 02/08/2031 [id number] / / [id number] Tube Ventilation 4.8mmx1.32mm - [id number] Implanted:Qty: 1 on 09/19/2022 by Leonardo Castro DO at OR [facility] Left: Ear [employer] 02/08/2031 [id number] / / [id number] documented as of this encounter Visit Diagnoses Diagnosis Diet controlled gestational diabetes mellitus (GDM) in third trimester- Primary Supervision of high risk , antepartum, third trimester 34 weeks gestation of state, incidental documented in this encounter Care Teams Real Estate Legal Secretary Relationship Specialty Start Date End Date Alex Hopkins DO [address] [place] [address] PCP - General Family Medicine 12/30/19 documented as of this encounter
--- OUTSIDE RECORDS SUMMARY | 2024-02-26 08:20 | External Medical Summary | Summary of Care ---
Author Name Unknown Organization [facility] Address [address] [place] [address] Phone [phone] Care Team Providers Care Cafeteria Associate Name Role Phone Alex Hopkins DO Primary Care Provider Reason for Visit * Reason Comments Return Visit Encounter Details Date Type Department Care Team (Late st Contact Info) Description 02/04/2024 8:45 AM EDT Office Visit Gynecology/Obstetri cs Mayuri Botello 132 [facility] [place] [address] Ailyn Campo MD [address] [facility] [place] [id number] Tammy Botello Stress Tests Manoj [address] [facility] [place] [address] 36 weeks gestation of *; resulting from [...] mouth in the morning. 0 Active Breast PumpIndications:[place] st feeding status of mother Estimated Date of Delivery: 02/29/24, Z39.1, double electric breast pump 1 Each 0 10/12/2023 Active .Club [employer] Verio Flex System w/Device KitIndications:Diet controlled gestational diabetes mellitus (GDM) in third trimester Use to test blood sugars 4 times daily (fasting, 1 hour after breakfast, lunch, and dinner) 1 Kit 0 12/07/2023 Active Oscilla Power In Vitro Strip (Glucose Blood)Indications:Di et controlled gestational diabetes mellitus (GDM) in third trimester Use to test blood sugars 4 times daily (fasting, 1 hour after breakfast, lunch, and dinner) 125 Strip 6 12/07/2023 Active Infobrightuch DelCS-Keys Lancets 30GIndications:Diet controlled gestational diabetes mellitus (GDM) [...] Recommend nutrition consult with RDN (Registered Dietitian Engagement Specialist). Lifestyle changes are also indicated including [...] money to get more. Never true 08/16/2023 [place] Depression Scale Answer Date Recorded [place] Depression Scale Total 2 01/22/2024 The thought [...] - 02/04/2024 8:45 AM EDT H+P 02/04/24 Viviana Miller is a 34 year old at [...] had some elevated sugars [facility] adapt [facility]t 01/18/2024 [...] performed by Leonardo Castro DO at OR [facility] EMBRYO TRANSFER INTRAUTERINE INFORMATION tubes in ears [place] DELIVERY ONLY x2 REDUCTION OF BREAST 2010 [...] tenderness bilaterally. No pathologic edema. GBS collected Giver Documentation Provider requested frame pulley mortising machine operator. Name of frame pulley mortising machine operator: Roshan Jose LPN ASSESSMENT assessment with Non-stress [...] Description 02/05/2024 8:00 AM EDT [facility] [address] [place] [address] Sade Ordoñez RDN [address] [place] [address] 02/06/2024 1:45 PM EDT Imaging Radiology, [address] [place] [address] 02/12/2024 9:00 AM EDT Office Visit Gynecology/Obstetrics MichaelPedroL uisnava Botello [address] [place] [address] Jayy Chong, [facility] [address] [place] [address] Tammy Botello Stress Tests Manoj [address] [place] [address] 02/18/2024 1:45 PM EDT Office Visit Gynecology/Obstetrics Mayuri Botello [address] [place] [address] Magdalena Patel CRNP [address] [place], [place] [address] Tammy Botello Stress Tests Manoj [address] [place] [address] 02/26/2024 9:00 AM EDT Office Visit Gynecology/Obstetrics Senianava Botello [address] [place] [address] Celena Napoles, DEO [address] [place] [address] Tammy Botello Stress Tests Manoj [address] [place] [address] 03/04/2024 10:20 AM EDT [facility] [address] [place] [address] Mallory Murray PA-C [address] [place] [address] 03/04/2024 11:30 AM EDT Office Visit Gynecology/Obstetrics [facility] [address] [place] [address] Magdalena Patel CRNP [address] [place] [address] Pending Results Name Type Priority Associated Diagnoses Date /Time GROUP B STREP CULTURE/PCR Lab Routine resulting from in vitro fertilization in third trimester 36 weeks gestation of 02/04/2024 9:44 AM EDT Scheduled Orders Name Type Priority [...] this encounter Medical Devices Implanted Type Area Renewable Energy Division Manager Device Identifier Shelf Expiration Date Model / Serial / Lot T Tube Implanted:Qty: 1 on 09/19/2022 by Leonardo Castro DO at OR [facility] Right: Ear 02/08/2031 [id number] / / [id number] Tube Ventilation 4.8mmx1.32mm - [id number] Implanted:Qty: 1 on 09/19/2022 by Leonardo Castro DO at OR [facility] Left: Ear [employer] 02/08/2031 [id number] / / [id number] documented as of this encounter Visit Diagnoses [...] trimester documented in this encounter Care Teams Cafeteria Associate Relationship Specialty Start Date End Date Alex Hopkins DO [address] [place] [address] PCP - General Family Medicine 12/30/19 documented as of this encounter
--- OUTSIDE RECORDS SUMMARY | 2024-02-26 08:20 | External Medical Summary | Summary of Care ---
Author Name Unknown Organization [facility] Address [address] [place] [address] Phone [phone] Care Team Providers Care Arbor End Mainspring Former Name Role Phone Alex Hopkins DO Primary Care Provider Reason for Visit * Reason Comments Return Visit Encounter Details Date Type Department Care Team (Late st Contact Info) Description 02/04/2024 8:45 AM EDT Office Visit Gynecology/Obstetri cs Mayuri Botello 132 [facility] [place] [address] Ailyn Campo MD [address] [facility] [place] [id number] Tammy Botello Stress Tests Manoj [address] [place] [address] 36 weeks gestation of *; resulting from [...] mouth in the morning. 0 Active Breast PumpIndications:[place] feeding status of mother Estimated Date of Delivery: 02/29/24, Z39.1, double electric breast pump 1 Each 0 10/12/2023 Active Plastic Jungle Verio Flex System w/Device KitIndications:Diet controlled gestational diabetes mellitus (GDM) in third trimester Use to test blood sugars 4 times daily (fasting, 1 hour after breakfast, lunch, and dinner) 1 Kit 0 12/07/2023 Active Krugle In Vitro Strip (Glucose Blood)Indications:Di et controlled gestational diabetes mellitus (GDM) in third trimester Use to test blood sugars 4 times daily (fasting, 1 hour after breakfast, lunch, and dinner) 125 Strip 6 12/07/2023 Active Ingenium Golfuch DelPenPath Lancets 30GIndications:Diet controlled gestational diabetes mellitus (GDM) [...] Recommend nutrition consult with RDN (Registered Dietitian Electrical Prospecting Operator). Lifestyle changes are also indicated including [...] money to get more. Never true 08/16/2023 [place] Depression Scale Answer Date Recorded [place] Depression Scale Total 2 01/22/2024 The thought [...] had some elevated sugars msg sent to [facility] to schedule for FU adapt [...] performed by Leonardo Castro DO at OR [facility] EMBRYO TRANSFER INTRAUTERINE INFORMATION tubes in ears [place] DELIVERY ONLY x2 REDUCTION OF BREAST 2010 [...] tenderness bilaterally. No pathologic edema. GBS collected Correctional Maintenance Technician Documentation Provider requested manager power. Name of manager power: Roshan Jose LPN ASSESSMENT assessment with Non-stress [...] Description 02/05/2024 8:00 AM EDT [facility] [address] [place] [address] Sade Ordoñez RDN [address] [place] [address] 02/06/2024 1:45 PM EDT Imaging Radiology, [address] [place] [address] 02/12/2024 9:00 AM EDT Office Visit Gynecology/Obstetrics MichaelPedro Luisnava Botello [address] [place] [address] Jayy Chong, [facility] [address] [place] [address] Tammy Botello Stress Tests Manoj [address] [place] [address] 02/18/2024 1:45 PM EDT Office Visit Gynecology/Obstetrics Mayuri Botello [address] [place] [address] Magdalena Patel CRNP [address] [place], [place] [address] Tammy Botello Stress Tests Manoj [address] [place] [address] 02/26/2024 9:00 AM EDT Office Visit Gynecology/Obstetrics Senianava Botello [address] [place] [address] Celena Napoles, DEO [address] [place] [address] Tammy Botello Stress Tests Manoj [address] [place] [address] 03/04/2024 10:20 AM EDT [facility] [address] [place] [address] Mallory Murray PA-C [address] [place] [address] 03/04/2024 11:30 AM EDT Office Visit Gynecology/Obstetrics [facility] [address] [place] [address] Magdalena Patel CRNP [address] [place] [address] Pending Results Name Type Priority Associated Diagnoses [...] this encounter Medical Devices Implanted Type Area Threshing Department Supervisor Device Identifier Shelf Expiration Date Model / Serial / Lot T Tube Implanted:Qty: 1 on 09/19/2022 by Leonardo Castro DO at OR [facility] Right: Ear 02/08/2031 [id number] / / [id number] Tube Ventilation 4.8mmx1.32mm - [id number] Implanted:Qty: 1 on 09/19/2022 by Leonardo Castro DO at OR [facility] Left: Ear [employer] 02/08/2031 [id number] / / [id number] documented as of this encounter Visit Diagnoses [...] trimester documented in this encounter Care Teams Arbor End Mainspring Former Relationship Specialty Start Date End Date Alex Hopkins DO [address] [place] [address] PCP - General Family Medicine 12/30/19 documented as of this encounter
--- OUTSIDE RECORDS SUMMARY | 2024-02-26 08:20 | External Medical Summary | Summary of Care ---
Author Name Unknown Organization [facility] Address [address] [place] [address] Phone [phone] Care Team Providers Care Food Counselor Name Role Phone Sandeep Alex Floriankirk Primary Care Provider Encounter Details Date Type Department Care Team (Latest Contact Info) Description 01/03/2024 9:30 AM EST Office Visit Shearing Supervisor Obstetrics Maternal Medicine, [facility] [address] [facility] [place] [address] Mary Lomas, DO [address] [place] [address] resulting from in vitro fertilization [...] breast pump 1 Each 0 10/12/2023 Active [employer].Touch Verio Flex System w/Device KitIndications:Diet controlled gestational diabetes mellitus (GDM) in third trimester Use to test blood sugars 4 times daily (fasting, 1 hour after breakfast, lunch, and dinner) 1 Kit 0 12/07/2023 Active Wimba In Vitro Strip (Glucose Blood)Indications:Di et controlled gestational diabetes mellitus (GDM) in third trimester Use to test blood sugars 4 times daily (fasting, 1 hour after breakfast, lunch, and dinner) 125 Strip 6 12/07/2023 Active Kyphauch Delica Lancets 30GIndications:Diet controlled gestational diabetes mellitus [...] Recommend nutrition consult with RDN (Registered Dietitian Security Compliance Engineer). Lifestyle changes are also indicated including optimizing [...] money to get more. Never true 08/16/2023 [place] Depression Scale Answer Date Recorded [place] Depression Scale Total 3 12/21/2023 The thought [...] as of this encounter Progress Notes * aMry Lomas, DO - 01/03/2024 11:14 AM EST [...] Bot[place] [address] [place] [address] Jany Billings CRNP [address] [place] [address] 01/22/2024 8:45 AM EDT Office Visit Gynecology/Obstetrics [facility] [address] [place] [address] Jany Billings CRNP [address] [place] [address] 02/05/2024 8:00 AM EDT Telemedicine Nutrition Services, [facility] [address] [place] [address] Saed Ordoñez, KALE [address] [place] [address] 02/05/2024 9:30 AM EDT Office Visit Gynecology/Obstetrics [facility] [address] [place] [address] Magdalena Patel CRNP [address] [place] [address] Ayan Non Stress Tests Manoj [address] [place] [address] 02/12/2024 9:00 AM EDT Office Visit Gynecology/Obstetrics [facility] [address] [place] [address] Jayy Chong, [facility] [address] [place] [address] Tammy Botello Stress Tests Manoj [address] [place] [address] 02/19/2024 9:30 AM EDT Office Visit Gynecology/Obstetrics Mayuri Gamboas [address] [place] [address] Magdalena Patel CRNP [address] [place] [address] Tammy Botello Stress Tests Manoj [address] [place] [address] 02/26/2024 9:00 AM EDT Office Visit Gynecology/Obstetrics Mayuri Botello [address] [place] [address] Celena Napoles, DEO [address] [place] [address] Tammy Botello Stress Tests [facility] [address] [place] [address] 03/04/2024 10:20 AM EDT Office Visit Otolaryngology Mayuri [facility] [address] [facility] [place] [address] Mallory Murray PA-C [address] [place] [address] Health Maintenance Due Date Last Done Comments [...] this encounter Medical Devices Implanted Type Area Real Estate Leasing Agent Device Identifier Shelf Expiration Date Model / Serial / Lot T Tube Implanted:Qty: 1 on 09/19/2022 by Leonardo Castro DO at OR [facility] Right: Ear 02/08/2031 [id number] / / [id number] Tube Ventilation 4.8mmx1.32mm - [id number] Implanted:Qty: 1 on 09/19/2022 by Leonardo Castro DO at OR [facility] Left: Ear Ret[employer] 02/08/2031 [id number] / / [id number] documented as of this encounter Visit Diagnoses [...] incidental documented in this encounter Care Teams Food Counselor Relationship Specialty Start Date End Date Alex Hopkins DO [address] [place] [address] PCP - General Family Medicine 12/30/19 documented as of this encounter
--- OUTSIDE RECORDS SUMMARY | 2024-02-26 08:21 | External Medical Summary ---
Author Name Unknown Address Unknown Organization [id number] [address] [place] [address] Laboratory Report Ordering Provider Test Date Status TARA CHANG 12/07/2023 09:09:59 Final Observation Date Value Abnormality Reference (Units ) Status Glucose, 2-hr post glucose challenge 12/07/2023 09:09:59 163 Above high normal 70-154 (mg/dL) Final Per[facility] 0 - [address] [place] [address]
--- OUTSIDE RECORDS SUMMARY | 2024-02-26 08:21 | External Medical Summary ---
Author Name Unknown Address Unknown Organization [id number]:LABORATORY [facility] [place] - [address] [place] [address] Laboratory Report Ordering Provider Test Date Status TARA CHANG 12/07/2023 07:06:49 Final Observation Date Value Abnormality Reference (Units ) Status Treponema pallidum Ab [Presence] in Serum by Immunoassay 12/07/2023 07:06:49 Nonreactive Nonreactive Final No serologic evidence of syp hilis. No additional testing clinicially indicated at this time. Consider repeat testing in 2-4 weeks if acute or primary syphilis is suspected. Performing Location LABORATORY [facility] [place] - [address] [place] [address]
--- OUTSIDE RECORDS SUMMARY | 2024-02-26 08:21 | External Medical Summary | Summary of Care ---
Author Name Unknown Organization [facility] Address [address] [facility] [place] [address] Phone [phone] Care Team Providers Care Ruching Machine Operator Name Role Phone Alex Hopkins DO Primary Care Provider Reason for Visit * Reason Comments Return Visit Encounter Details Date Type Department Care Team (Latest Contact Info) Description 12/21/2023 8:15 AM EST Office Visit Gynecology/Obstetric s Mayuri Botello [address] [place] [address] Page Negron PA-C [address] [place] [address] Supervision of high risk in third trimester*; resulting from in vitro fertilization in third trimester; History of gestational diabetes mellitus (GDM); History of section complicating ; Obesity in , antepartum; Surrogate ; Diet controlled gestational diabetes mellitus (GDM) in third trimester Allergies Active Allergy Reactions Criticality Noted Date Comments Sulfa Antibiotics 08/15/2002 documented as of this encounter (statuses as of 12/21/2023) Medications Medication Sig Dispensed Refills Start Date End Date Status 28-0.8 MG Oral Tablet Take by mouth. 0 Active B Complex Vitamins Oral Capsule Take 1 Capsule by mouth in the morning. 0 Active Breast PumpIndications:Toponas st feeding status of mother Estimated Date of Delivery: 02/29/24, Z39.1, double electric breast pump 1 Each 0 10/12/2023 Active OneTouch Verio Flex System w/Device KitIndications:Diet controlled gestational diabetes mellitus (GDM) in third trimester Use to test blood sugars 4 times daily (fasting, 1 hour after breakfast, lunch, and dinner) 1 Kit 0 12/07/2023 Active [employer] In Vitro Strip (Glucose Blood)Indications:Di et controlled gestational diabetes mellitus (GDM) in third trimester Use to test blood sugars 4 times daily (fasting, 1 hour after breakfast, lunch, and dinner) 125 Strip 6 12/07/2023 Active Starters[employer] Lancets 30GIndications:Diet controlled gestational diabetes mellitus (GDM) in third trimester Use to test blood sugars 4 times daily (fasting, 1 hour after breakfast, lunch, and dinner) 200 Each 6 12/07/2023 Active documented as of this encounter (statuses as of 12/21/2023) Active Problems Problem Noted Date Diagnosed Date [...] each week for MFM review 12/17/2023- stable Last Assessment & Plan: CONSIDERATIONS: Reviewed [...] Recommend nutrition consult with RDN (Registered Dietitian Bakery And Deli Sales Manager). Lifestyle changes are also indicated including optimizing [...] as of this encounter (statuses as of 12/21/2023) Resolved Problems Problem Noted Date Diagnosed Date Resolved Date High-risk 08/16/2023 08/21/20 IUD contraception 12/30/2019 08/15/2023 documented as of this encounter (statuses as of 12/21/2023) Immunizations Name Administration Dates Next Due DTP [...] money to get more. Never true 08/16/2023 [place] Depression Scale Answer Date Recorded [place] Depression Scale Total 3 12/21/2023 The [...] Sign Reading Time Taken Comments Blood Pressure 110/70 12/21/2023 8:13 AM EST Pulse - - Temperature - - Respiratory Rate - - Oxygen Saturation - - Inhaled Oxygen Concentration - - Weight 74.5 kg (164 lb 3.2 oz) 12/21/2023 8:13 A M EST Height 152.4 cm (5') 12/21/2023 8:13 AM EST Body Mass Index 32.07 12/21/2023 8:13 AM EST documented in this encounter Progress Notes * Page Negron PA-C - 12/21/2023 8:35 AM EST 30w0d First time seeing patient. No complaints. Denies VB, LOF, contractions. Pos fm. GDM, reports BG doing good. Had a few elevations, knows cause as ate grilled cheese. Remains stablediet controlled and she is reporting. Planning repeat C/S, Krissy made aware. Reviewed weekly NST at 36 weeks RTC in 2 weeks documented in this encounter Nursing Notes * Narda Morales RN - 12/21/2023 8:14 AM EST Patient here for DARRYL 30w0d GMD, checking glucose + FM No leaking bleeding/leaking documented in this encounter Plan of Treatment Upcoming Encounters Date Type Department Care Team (Late st Contact Info) Description 01/01/2024 3:00 PM EST Telemedicine Virtual, Nutrition Services [address] [place] [address] Lubna Mir, RDN [address] [place] [address] [place] [address] 01/03/2024 9:30 AM EST Imaging Maternal Medicine Imaging, Manoj Botello [address] [place] [phone] 01/08/2024 8:30 AM EDT Office Visit Gynecology/Obstetrics [facility] [address] [place] [address] Jany Billings CRNP [address] [place] [address] 01/22/2024 8:45 AM EDT Office Visit Gynecology/Obstetrics MichaelPedro [facility] Botello [address] [place] [address] Jany Billings CRNP [address] [place] [address] 02/05/2024 9:30 AM EDT Office Visit Gynecology/Obstetrics Michaelmelanie Botello [address] [place] [address] Magdalena Patel CRNP [address] [place] [address] Ayan Non Stress Tests Manoj [address] [place] [address] 02/12/2024 9:00 AM EDT Office Visit Gynecology/Obstetrics Mayuri Botello [address] [place], [place] [address] Jayy Chong, DEO [address] [place] [address] Tammy Botello Stress Tests Manoj [address] [place] [address] 02/19/2024 9:30 AM EDT Office Visit Gynecology/Obstetrics Michaelmelanie Gamboas [address] [place], [place] [address] Magdalena Patel CRNP [address] [place] [address] Tammy Botello Stress Tests Manoj [address] [place] [address] 02/26/2024 9:00 AM EDT Office Visit Gynecology/Obstetrics Michaelmelanie Botello [address] [place] [address] Celena Napoles, JOSE DE JESUS [address] [place] [address] Ayan Non Stress Tests Manoj [address] [place] [address] 03/04/2024 10:20 AM EDT Office [facility] [address] [place] [address] Mallory Murray PA-C [address] [place] [address] Health Maintenance Due Date Last Done Comments [...] this encounter Medical Devices Implanted Type Area Bed Control Specialist Device Identifier Shelf Expiration Date Model / Serial / Lot T Tube Implanted:Qty: 1 on 09/19/2022 by Leonardo Castro DO at OR [facility] Right: Ear 02/08/2031 [id number] / / [id number] Tube Ventilation 4.8mmx1.32mm - [id number] Implanted:Qty: 1 on 09/19/2022 by Leonardo Castro DO at OR [facility] Left: Ear [employer] 02/08/2031 [id number] / / [id number] documented as of this encounter Visit Diagnoses [...] trimester documented in this encounter Care Teams Ruching Machine Operator Relationship Specialty Start Date End Date Alex Hopkins DO [address] [place] [address] PCP - General Family Medicine 12/30/19 documented as of this encounter
--- OUTSIDE RECORDS SUMMARY | 2024-02-26 08:21 | External Medical Summary ---
Author Name Unknown Address Unknown Organization K01:[facility] [place] [address] [place] [address] Laboratory Report Ordering Provider Test Date Status TARA CHANG 12/07/2023 07:06:49 Final Observation Date Value Abnormality Reference (Units ) Status Folic Acid 12/07/2023 07:06:49 >20.0 >4.5 (ng/ mL) Final Performing Location [facility] - [address] [place] [address]
--- OUTSIDE RECORDS SUMMARY | 2024-02-26 08:21 | External Medical Summary | Summary of Care ---
Author Name Unknown Organization [facility] Address [address] [place] [address] Phone [phone] Care Team Providers Care Maitre D Name Role Phone Alex Hopkinskirk Primary Care Provider Reason for Visit * Reason Onset Date Comments Home Monitoring Orders Only 12/12/2023 Encounter Details Date Type Department Care Team (Late st Contact Info) Description 12/12/2023 Home Monitoring Care Coordination [address] [place] [address] Leidy Lucas, KATIE [facility] [address] [place] [address] Diet controlled gestational diabetes mellitus (GDM) in third trimester* Allergies Active Allergy Reactions Criticality Noted Date Comments Sulfa Antibiotics 08/15/2002 documented as of this encounter (statuses as of 12/12/2023) Medications Medication Sig Dispensed Refills Start Date End Date Status 28-0.8 MG Oral Tablet Take by mouth. 0 Active B Complex Vitamins Oral Capsule Take 1 Capsule by mouth in the morning. 0 Active Breast PumpIndications:[place] st feeding status of mother Estimated Date [...] and dinner) 125 Strip 6 12/07/2023 Active MoodswiingTouch Delica Lancets 30GIndications:Diet controlled gestational diabetes mellitus (GDM) in third trimester Use to test blood sugars 4 times daily (fasting, 1 hour after breakfast, lunch, and dinner) 200 Each 6 12/07/2023 Active documented as of this encounter (statuses as of 12/12/2023) Active Problems Problem Noted Date Diagnosed Date [...] blood sugars each week for MFM review Last Assessment & Plan: CONSIDERATIONS: Reviewed etiology [...] Recommend nutrition consult with RDN (Registered Dietitian Centerless Grinder). Lifestyle changes are also indicated including optimizing [...] as of this encounter (statuses as of 12/12/2023) Resolved Problems Problem Noted Date Diagnosed Date Resolved Date High-risk 08/16/2023 08/21/20 IUD contraception 12/30/2019 08/15/2023 documented as of this encounter (statuses as of 12/12/2023) Immunizations Name Administration Dates Next Due DTP [...] money to get more. Never true 08/16/2023 [place] Depression Scale Answer Date Recorded [place] Depression Scale Total 2 08/16/2023 The thought of harming myself has occurred to me . Never 08/16/2023 Estimated Date of Delivery Comme nts Yes [...] as of this encounter Progress Notes * Kun Esp[facility] [employer] - 12/12/2023 9:20 AM EST Patient has been successfully enrolled to the [id number] Diabetes Management in program. Standard alarm settings have been set as follows: Singular glucose level > 200 Singular glucose level < 60 Patient has been advised to take blood sugar four times a day (fasting upon waking, and one hour after each meal). Patient has been oriented to remote patient monitoring, assisted with initial device set-up, and provided with instruction and education regarding the program. Patient understands that this monitoring should not be used as a replacement for emergency and/or urgent care. If patient experiences any urgent symptoms, they are aware to call office/tonnage compilation clerk provider for additional instructions. In emergency situations, they will report directly to the ED for further evaluation. If you would like to customize the alert parameters and/or instructions for this patient, please let me know and we can have them changed. Electronically signed by Kun Esparza [facility] [employer] at 12/12/2023 9:22 AM EST documented in this encounter Plan of Treatment Upcoming Encounters Date Type Department Care Team (Late st Contact Info) Description 12/21/2023 8:15 AM EST Office Visit Gynecology/Obstetrics Mayuri [facility] [address] [place] [address] Page Negron PA-C [address] [place] [address] 01/03/2024 9:30 AM EST Office Visit Product Management Internship [facility] [address] [place] [address] Mary Lomas, DO [address] [facility] [place] [address] 01/03/2024 9:30 AM EST Imaging [facility] [address] [place] [phone] 01/08/2024 8:30 AM EDT Office Visit Gynecology/Obstetrics Mayuri [facility] [address] [place] [address] Jany Billings CRNP [address] [place] [address] 01/22/2024 8:45 AM EDT Office Visit Gynecology/Obstetrics Mayuri [facility] [address] [place] [address] Jany Billings CRNP [address] [place] [address] 03/04/2024 10:20 AM EDT Office Visit Otolaryngology [facility] [address] [place] [address] Mallory Murray PA-C [address] [place] [address] Health Maintenance Due Date Last Done Comments COVID-19 Vaccine (#1) 1991 Depression Screening 01/17/2024 01/16/2023 DTaP,Tdap,and Td Vaccines [...] this encounter Medical Devices Implanted Type Area Tower Supervisor Device Identifier Shelf Expiration Date Model / Serial / Lot Tube Ventilation 4.8mmx1.32mm - [id number] Implanted:Qty: 1 on 09/19/2022 by Leonardo Castro DO at OR [facility] Left: Ear [employer] 02/08/2031 [id number] / / [id number] documented as of this encounter Visit Diagnoses Diagnosis Diet controlled gestational diabetes mellitus (GDM) in third trimester- Primary documented in this encounter Care Teams Maitre D Relationship Specialty Start Date End Date Alex Hopkins DO [address] [facility] [place] [address] PCP - General Family Medicine 12/30/19 documented as of this encounter
--- OUTSIDE RECORDS SUMMARY | 2024-02-26 08:21 | External Medical Summary ---
Author Name Unknown Address Unknown Organization K01:LABORATORY [facility] [place] - [address] [place] [address] Laboratory Report Ordering Provider Test Date Status CHARLENETARA 12/07/2023 07:06:49 Final Observation Date Value Abnormality Reference (Units ) Status Iron 12/07/2023 07:06:49 115 33-151 (ug/dL) Final Iron-binding capacity 12/07/2023 07:06:49 428 Above high normal 250-425 (ug/dL) Final Transferrin Sat % 12/07/2023 07:06:49 27 15-55 (%) Final Performing Location LABORATORY [facility] - [address] [place] [address]
--- OUTSIDE RECORDS SUMMARY | 2024-02-26 08:21 | External Medical Summary ---
Author Name Unknown Address Unknown Organization K01:LABORATORY [facility] [place] - [address] [place] [address] Laboratory Report Ordering Provider Test Date Status TARA CHANG 12/07/2023 07:06:49 Final Observation Date Value Abnormality Reference (Units ) Status Vitamin B12 12/07/2023 07:06:49 520 831-2420 (pg/mL) Final Performing Location [facility] - [address] [place] [address]
--- OUTSIDE RECORDS SUMMARY | 2024-02-26 08:21 | External Medical Summary ---
Author Name Unknown Address Unknown Organization K01:[facility] [address] [facility] [place] [address] Laboratory Report Ordering Provider Test Date Status TARA CHANG 12/07/2023 07:06:49 Final Observation Date Value Abnormality Reference (Units ) Status SYNC LEUKOCYTES IN BLOOD BY AUTOMATED COUNT 12/07/2023 07:06:49 8.64 4.00-10.80 (K/uL) Final Segs 12/07/2023 07:06:49 69.8 40.0-75.0 (%) Final Lymphs % 12/07/2023 07:06:49 21.8 18.0-42.0 (%) Final Monos 12/07/2023 07:06:49 6.4 1.0-11.0 (%) Final Eosinophils 12/07/2023 07:06:49 0.8 0.0-6.0 (%) Final Basos 12/07/2023 07:06:49 0.3 0.0-2.0 (%) Final Immature Granulocyte, Percent 12/07/2023 07:06:49 0.9 0.0-2.0 (%) Final Absolute Segs 12/07/2023 07:06:49 6.03 1.80-7.70 (K/uL) Final Lymphs, absolute 12/07/2023 07:06:49 1.88 1.00-4.80 (K/ul) Final Monos, Abs 12/07/2023 07:06:49 0.55 0.00-1.10 (K/uL) Final Eos, Abs 12/07/2023 07:06:49 0.07 0.00-0.70 (K/uL) Final Basos, Abs 12/07/2023 07:06:49 0.03 0.00-0.20 (K/uL) Final Immature Granulocytes, Number 12/07/2023 07:06:49 0.08 0.00-0.20 (K/uL) Final Performing Location [place] [place] [address] [place] [facility] [address]
--- OUTSIDE RECORDS SUMMARY | 2024-02-26 08:21 | External Medical Summary ---
Author Name Unknown Address Unknown Organization K01:LABORATORY [facility] [place] - [address] [facility] [place] [address] Laboratory Report Ordering Provider Test Date Status TARA CHANG 12/07/2023 07:06:49 Final Observation Date Value Abnormality Reference (Units ) Status WBC, Total 12/07/2023 07:06:49 8.64 4.00-10.8 0 (K/uL) Final RBC 12/07/2023 07:06:49 3.74 3.85-5.15 (M/uL) Final Hemoglobin 12/07/2023 07:06:49 11.6 Below low normal 12 .0-15.3 (g/dL) Final Anemia reflex testing trigge rs on a HGB < 12.0 for Females and HGB < 13.0 for Males in accordance with the WHO Anemia Guidelines
Anemia reflex testing triggers on a HGB < 12.0 for Females and HGB < 13.0 for Males in accordance with the WHO Anemia Guidelines HCT 12/07/2023 07:06:49 35.1 Below low normal 36. 0-45.2 (%) Final MCV 12/07/2023 07:06:49 93.9 81.5-97.5 (fL) Final MCH 12/07/2023 07:06:49 31.0 27.0-34.0 (pg) Final MCHC 12/07/2023 07:06:49 33.0 32.0-36.0 (g/dL) Final RDW 12/07/2023 07:06:49 12.9 11.5-15.5 (%) Final Platelets 12/07/2023 07:06:49 279 140-400 (K /uL) Final MPV 12/07/2023 07:06:49 9.4 6.6-11.1 ( fL) Final Nucleated erythrocytes/100 leukocytes [Ratio] in Blood by Automated count 12/07/2023 07:06:49 0 <=0 (/100 WBCs) Final Performing Location LABORATORY [facility] [place] - [facility] [address] [facility] [address]
--- OUTSIDE RECORDS SUMMARY | 2024-02-26 08:21 | External Medical Summary ---
Author Name Unknown Address Unknown Organization K0G:LAB[facility]ATORY [facility] 57-10 - [address] [place] [address] Laboratory Report Ordering Provider Test Date Status TARA CHANG 12/07/2023 10:07:15 Final Observation Date Value Abnormality Reference (Units ) Status Glucose [Mass/volume] in Serum or Plasma --3 hours post dose glucose 12/07/2023 10:07:15 116 70-139 (mg/dL) Final Performing Location LABORATORY [facility] 57-1 0 - [address] [place] [address]
--- OUTSIDE RECORDS SUMMARY | 2024-02-26 08:21 | External Medical Summary | Summary of Care ---
Author Name Unknown Organization [facility] Address [address] [place] [address] Phone [phone] Care Team Providers Care Sound Equipment Mechanic Name Role Phone Alex Hopkins DO Primary Care Provider Reason for Referral * Evaluate & Treat - Unlimited Visits (Within 10 days (routine)) - Pending Review Specialty Diagnoses / Procedures Referred By Salina atkinson Referred To Contact Director Of Midwifery/Staff Midwife / Nutrition Services Diagnoses Diet controlled gestational diabetes mellitus (GDM) in third trimester Charlene Pacheco CRNP [address] [place] [address] Referral ID Status Reason Start Date Expiration Date Visits Requested Visits Authorized [id number] Pending Review Specialty Services Required 12/07/[phone] Question Answer Is the patient ? Yes Referral Priority Within 10 days (routine) Where should this appointment be scheduled? [facility] Comments This referral is for Diabetes Self-Management Training (DSMT) by a recognized [place] [employer] Association (ADA) critical care educator: Nurse (RN), Registered Dietitian Logistics Engineering Manager (RDN), and/or Diabetes Medical Nutrition Therapy (MNT) Management (dietitian only). Diabetes educators are responsible for assessing the participant's diabetes education needs, and providing diabetes self-management training in accordance with the standards set by the ADA for DSMT. Any adjustment in diabetes therapy will be made within the guidelines of standards of practice and [place]inger approved policies and procedures. I understand that the critical care educator will keep me informed. Areas of Education: Pathophysiology Nutrition Physical Activity Medications Monitoring Acute Complications Chronic Complications Psychosocial Management Promote Health/Behavior Change Participant will be offered 1:1 education training if there is a lack of classes available within 2 months. Providers can also order 1:1 training if indicated for participant for the following reasons: 1:1 Training for Insulin Initiation Participant Inappropriate for Class Setting By my electronic signature, I understand that my patient will be offered the comprehensive ADA content area above unless deemed not appropriate of I specify otherwise here: * Evaluate & Treat - Unlimited Visits (Within 10 days (routine)) - Pending Review Specialty Diagnoses / Procedures Referred By Salina atkinson Referred To Contact Obstetrics/Gynecology / Maternal Medicine Diagnoses Diet controlled gestational diabetes mellitus (GDM) in third trimester Charlene Pacheco CRNP [address] [place] [address] Referral ID Status Reason Start Date Expiration Date Visits Requested Visits Authorized [id number] Pending Review Specialty Services Required 12/07/[phone] Question Answer Referral Priority Within 10 days (routine) Has the patient had a viability scan? Yes Date performed 07/10/2023 Location performed Radiology Reason for referral Diabetes Diabetes type Gestational Where should this appointment be scheduled? [facility] Comments /Para: LMP: Patient's last menstrual period was 05/28/2023 (approximate). Patient is . HILARY: 02/29/2024, by Ultrasound Pre-Gravid BMI: 30.27 Reason for Visit * Reason Onset Date Comments Abnormal Test Results 12/07/2023 Failed 3hr GTT Encounter Details Date Type Department Care Team (Late st Contact Info) Description 12/07/2023 Refill Gynecology/Obstetrics [facility] [address] [place] [address] Charlene Pacheco CRNP [address] [place] [id number] Diet controlled gestational diabetes mellitus (GDM) in third trimester*; Other specified related conditions, third trimester Allergies Active Allergy Reactions Criticality Noted Date Comments Sulfa Antibiotics 08/15/2002 documented as of this encounter (statuses as of 12/07/2023) Medications Medication Sig Dispensed Refills Start Date End Date Status 28-0.8 MG Oral Tablet Take by mouth. 0 Active B Complex Vitamins Oral Capsule Take 1 Capsule by mouth in the morning. 0 Active Breast PumpIndications:Radha st feeding status of mother Estimated Date of Delivery: 02/29/24, Z39.1, double electric breast pump 1 Each 0 10/12/2023 Active WisegateTouch Verio Flex System w/Device KitIndications:Diet controlled gestational diabetes mellitus (GDM) in third trimester Use to test blood sugars 4 times daily (fasting, 1 hour after breakfast, lunch, and dinner) 1 Kit 0 12/07/2023 Active [email or web address] In Vitro Strip (Glucose Blood)Indications:Di et controlled gestational diabetes mellitus (GDM) in third trimester Use to test blood sugars 4 times daily (fasting, 1 hour after breakfast, lunch, and dinner) 125 Strip 6 12/07/2023 Active WisegateTo[employer]holder InSite Delica Lancets 30GIndications:Diet controlled gestational diabetes mellitus (GDM) in third trimester Use to test blood sugars 4 times daily (fasting, 1 hour after breakfast, lunch, and dinner) 200 Each 6 12/07/2023 Active documented as of this encounter (statuses as of 12/07/2023) Active Problems Problem Noted Date Diagnosed Date Diet controlled gestational diabetes mellitus (GDM) in third trimester 12/07/2023 with 12 completed weeks gestation 07/30 Surrogate [...] as of this encounter (statuses as of 12/07/2023) Resolved Problems Problem Noted Date Diagnosed Date Resolved Date High-risk 08/16/2023 08/21/20 23 IUD contraception 12/30/2019 08/15/2023 documented as of this encounter (statuses as of 12/07/2023) Immunizations Name Administration Dates Next Due DTP [...] money to get more. Never true 08/16/2023 [place] Depression Scale Answer Date Recorded [place] Depression Scale Total 2 08/16/2023 The thought [...] encounter Miscellaneous Notes * Telephone Encounter - Charlene Pacheco CRNP - 12/07/2023 12:46 PM ESTSigned Prescriptions: Disp Refills OneTouch Verio Flex System w/Device Kit 1 Kit 0 Sig: Use to testblood sugars 4 times daily (fasting, 1 hour after breakfast, lunch, and dinner)Authorizing Provider: CHARLENE PACHECO OneTouch Verio In Vitro Strip (Glucose Blo*125 St*6 Sig: Use to test blood sugars 4times daily (fasting, 1 hour after breakfast, lunch, and dinner)Authorizing Provider: CHARLENE PACHECO OneTouch Delica Lancets 30G 200 Ea*6 Sig: Use to test blood sugars 4 times daily (fasting, 1 hour after breakfast, lunch, and dinner)Authorizing Provider: CHARLENE PACHECO * Telephone Encounter - Charlene Pacheco CRNP - 12/07/2023 12:46 PM EST Orders signed. Referral placed. * Telephone Encounter - Lubna Roque RN - 12/07/2023 11:56 AM ESTPending Prescriptions: Disp Refills OneTouch Verio Flex System w/Device Kit 1 Kit 0 Sig: Use to test blood sugars 4 times daily (fasting, 1 hour after breakfast, lunch, and dinner) OneTouch Verio In Vitro Strip (Glucose Blo*125 St*6 Sig: Use to test blood sugars 4 times daily (fasting, 1 hour after breakfast, lunch, and dinner) OneTouch Delica Lancets 3 0G 200 Ea*6 Sig: Use to test blood sugars 4 times daily (fasting, 1 hour after breakfast, lunch, and dinner) * Telephone Encounter - Lubna Roque RN - 12/07/2023 11:55 AM EST Pt is aware and agreeable. * Telephone Encounter - Charlene Pacheco CRNP - 12/07/2023 11:44 AM EST Pt with GDM- failed 3hr GTT today. Will need to check blood sugars 4 times a day. Will send supplies, ask pharmacy preference. These are best managed by MFM. Once agreeable, route back so I can send supplies and get new referral in for MFM. documented in this encounter Plan of Treatment Upcoming Encounters Date Type Department Care Team (Late st Contact Info) Description 12/21/2023 8:15 AM EST Office Visit Gynecology/Obstetrics Mayuri Botello [address] [place] [address] Page Negron PA-C [address] [place] [address] 01/03/2024 9:30 AM EST Office Visit Registration Rep Obstetrics Maternal Medicine, Manoj Botello [address] [place] [address] Mary Lomas, DO [address] [place] [address] 01/03/2024 9:30 AM EST Imaging Maternal Medicine Imaging[facility] [place] [phone] 01/08/2024 8:30 AM EDT Office Visit Gynecology/Obstetrics Mayuri Botello [address] [place] [address] Jany Billings CRNP [address] [place] [address] 01/22/2024 8:45 AM EDT Office Visit Gynecology/Obstetrics [facility] [address] [place] [address] Jany Billings CRNP [address] [place] [address] 03/04/2024 10:20 AM EDT Office Visit Otolaryngology [facility] [address] [place] [address] Mallory Murray PA-C [address] [place] [address] Scheduled Orders Name Type Priority Associated Diagnoses Orde r Schedule MFM US MATERNAL 1ST FETUS Medical Imaging Routine Diet controlled gestational diabetes mellitus (GDM) in third trimester Other specified related conditions, third trimester Expected: 12/07/2023, Expires: 01/04/2025 Scheduled Referrals Name Type Priority Associated Diagnoses Orde r Schedule MATERNAL MEDICINE REFERRAL OP Referral Within 10 days (routine) Diet controlled gestational diabetes mellitus (GDM) in third trimester Ordered: 12/07/2023 DIABETES MANAGEMENT EDUCATION (ADA) REFERRAL Referral Within [...] this encounter Medical Devices Implanted Type Area Distribution System Operator Device Identifier Shelf Expiration Date Model / Serial / Lot Tube Ventilation 4.8mmx1.32mm - [id number] Implanted:Qty: 1 on 09/19/2022 by Leonardo Castro DO at OR [facility] Left: Ear [employer] [facility] 02/08/2031 [id number] / / [id number] documented as of this encounter Visit Diagnoses Diagnosis Diet controlled gestational diabetes mellitus (GDM) in third trimester- Primary Other specified related conditions, third trimester documented in this encounter Care Teams Sound Equipment Mechanic Relationship Specialty Start Date End Date Alex Hopkins DO [address] [place] [address] [place] [address] PCP - General Family Medicine 12/30/19 documented as of this encounter
--- OUTSIDE RECORDS SUMMARY | 2024-02-26 08:21 | External Medical Summary ---
Author Name Unknown Address Unknown Organization K01:LABORATORY C - [address] [place] [address] Laboratory Report Ordering Provider Test Date Status TARA CHANG 12/07/2023 07:06:49 Final Observation Date Value Abnormality Reference (Units ) Status Ferritin 12/07/2023 07:06:49 36 13-150 (ng /mL) Final Performing Location [facility] - [address] [place] [address]
--- OUTSIDE RECORDS SUMMARY | 2024-02-26 08:21 | External Medical Summary | Summary of Care ---
Author Name Unknown Organization [facility] Address [address] [place] [facility] [place] [facility] [place] [address] Phone [phone] Care Team Providers Care Wool Hat Flanger Name Role Phone Alex Hopkins DO Primary Care Provider Reason for Visit * Reason Comments Outpatient Testing Encounter Details Date Type Department Care Team (Late st Contact Info) Description 12/07/2023 7:00 AM EST Laboratory Laboratory, [facility] [address] [place] [phone] [facility] [address] [place], [place] [phone] Supervision of high risk in second trimester Allergies Active Allergy Reactions Criticality Noted Date Comments Sulfa Antibiotics 08/15/2002 documented as of this encounter (statuses as of 12/07/2023) Medications Medication Sig Dispensed Refills Start Date End Date Status 28-0.8 MG Oral Tablet Take by mouth. 0 Active B Complex Vitamins Oral Capsule Take 1 Capsule by mouth in the morning. 0 Active Breast PumpIndications:Breas t feeding status of mother Estimated Date of Delivery: 02/29/24, Z39.1, double electric breast pump 1 Each 0 10/12/2023 Active documented as of this encounter (statuses as of 12/07/2023) Active Problems Problem Noted Date Diagnosed Date with 12 completed weeks gestation 07/30 Surrogate [...] money to get more. Never true 08/16/2023 [place] Depression Scale Answer Date Recorded [place] Depression Scale Total 2 08/16/2023 The thought [...] on file documented as of this encounter Plan of Treatment Upcoming Encounters Date Type Department Care Team (Late st Contact Info) Description 12/21/2023 8:15 AM EST Office Visit Gynecology/Obstetrics Mayuri [facility] [address] [place] [address] Page Negron PA-C [address] [place] [address] 01/03/2024 9:30 AM EST Office Visit Community Marketing Coordinator Obstetrics Maternal Medicine, Manoj [facility] [address] [place] [address] Mary Lomas, DO [address] [place] [address] 01/03/2024 9:30 AM EST [facility] [address] [place] [phone] 01/08/2024 8:30 AM EDT Office Visit Gynecology/Obstetrics Mayuri [facility] [address] [place] [address] Jany Billings CRNP [address] [place] [address] 01/22/2024 8:45 AM EDT Office Visit Gynecology/Obstetrics Mayuri [facility] [address] [place] [address] Jany Billings CRNP [address] [place] [address] 03/04/2024 10:20 AM EDT [facility] [address] [place] [address] Mallory Murray PA-C [address] [place] [address] Pending Results Name Type Priority Associated Diagnoses Date /Time CBC WITH WBC DIFFERENTIAL AND ANEMIA REFLEX WORKUP Lab Routine Supervision of high risk in second trimester 12/07/2023 7:06 AM EST SYPHILIS ANTIBODY SCREEN WITH REFLEX TO RPR Lab Routine Supervision of high risk in second trimester 12/07/2023 7:06 AM EST GESTATIONAL GLUCOSE TOLERANCE, 3 HOUR Lab Routine Supervision of high risk in second trimester 12/07/2023 7:06 AM EST ANEMIA CBC Lab Routine Supervision of high risk in second trimester 12/07/2023 7:06 AM EST DIFFERENTIAL, AUTOMATED Lab Routine Supervision of high risk in second trimester 12/07/2023 7:06 AM EST ANEMIA REFLEX CHEMISTRY HOLD Lab Routine Supervision of high risk in second trimester 12/07/2023 7:06 AM EST SYPHILIS ANTIBODY SCREEN Lab Routine Supervision of high risk in second trimester 12/07/2023 7:06 AM EST 100-G GESTATIONAL GLUCOSE, 3 HOUR Lab Routine Supervision of high risk in second trimester 12/07/2023 10:07 AM EST Health Maintenance Due Date Last Done Comments [...] this encounter Medical Devices Implanted Type Area Welder/Fitter Device Identifier Shelf Expiration Date Model / Serial / Lot Tube Ventilation 4.8mmx1.32mm - [id number] Implanted:Qty: 1 on 09/19/2022 by Leonardo Castro DO at OR [facility] Left: Ear [employer] 02/08/2031 [id number] / / [id number] documented as of this encounter Procedures Procedure Name Priority Date/Time Associated Diagnosis Comments 100-G GESTATIONAL GLUCOSE, 2 HOUR Routine 12/07/2023 9:09 AM EST Supervision of high risk in second trimester 100-G GESTATIONAL GLUCOSE, 1 HOUR Routine 12/07/2023 8:12 AM EST Supervision of high risk in second trimester 100-G GESTATIONAL GLUCOSE, FASTING Routine 12/07/2023 7:06 AM EST Supervision of high risk in second trimester documented in this encounter Results * (ABNORMAL) 100-G GESTATIONAL GLUCOSE, 2 HOUR (12/07/2023 9:09 AM EST) 100-g Gestational Glucose, 2 Hour 163(H) 70 - 154 mg/dL 12/07/2023 10:19 AM EST [facility] [place] [facility] Blood Venous blood specimen / Unknown Venipuncture / Unknown 12/07/2023 9:09 AM EST 12/07/2023 9:09 AM EST Magdalena WILSON LAB BLOOD ORDERABLES Performing Organization Address City/State/[facility] Co de Phone Number LAB[facility]ATORY [place] [phone] [place] [phone] * (ABNORMAL) 100-G GESTATIONAL GLUCOSE, 1 HOUR (12/07/2023 8:12 AM EST) 100-g Gestational Glucose, 1 Hour 199(H) 70 - 179 mg/dL 12/07/2023 9:23 AM EST [facility] [place] [facility] Blood Venous blood specimen / Unknown Venipuncture / Unknown 12/07/2023 8:12 AM EST 12/07/2023 8:12 AM EST Magdalena Ana Simsflavia [facility] LAB BLOOD ORDERABLES [facility] [id number] [place] [id number] * 100-G GESTATIONAL GLUCOSE, FASTING (12/07/2023 7:06 AM EST) 100-g Gestational Glucose, Fasting 89 70 - 94 mg/dL 12/07/2023 8:18 AM EST [facility] 57-10 Blood Venous blood specimen / Unknown Venipuncture / Unknown 12/07/2023 7:06 AM EST 12/07/2023 7:06 AM EST Narrative [facility] 57-10 - 12/07/2023 8:18 AM EST Based on ACOG guideline, gestational diabetes mellitus is diagnosed when any of the following is met: Fasting is greater than or equal to 95 mg/dL 1 hour is greater than or equal to 180 mg/dL 2 hour is greater than or equal to 155 mg/dL 3 hour is greater than or equal to 140 mg/dL Magdalena Patel VEHICLE DISMANTLER LAB BLOOD ORDERABLES Performing Organization Address [facility] Co de Phone Number LABORATORY L[facility] [address] [place] [address] documented in this encounter Visit Diagnoses Diagnosis Supervision of high risk in second trimester Unspecified high-risk documented in this encounter Care Teams Wool Hat Flanger Relationship Specialty Start Date End Date Alex Hopkins DO [address] [place] [address] PCP - General Family Medicine 12/30/19 documented as of this encounter
--- OUTSIDE RECORDS SUMMARY | 2024-02-26 08:21 | External Medical Summary ---
Author Name Unknown Address Unknown Organization K0G:LAB[facility] [place] [facility] - [address] [place] [address] Laboratory Report Ordering Provider Test Date Status TARA CHANG 12/07/2023 07:06:49 Final Based on ACOG guideline, ges tational diabetes mellitus is diagnosed when any of the following is met:
Fasting is greater than or equal to 95 mg/dL
1 hour is greater than or equal to 180 mg/dL
2 hour is greater than or equal to 155 mg/dL
3 hour is greater than or equal to 140 mg/dL Observation Date Value Abnormality Reference (Units ) Status Glucose, fasting 12/07/2023 07:06:49 89 70- 94 (mg/dL) Final Performing Location LABORATORY [facility] 57-[address] 0 - [address] [place] [address]
--- OUTSIDE RECORDS SUMMARY | 2024-02-26 08:21 | External Medical Summary ---
Author Name Unknown Address Unknown Organization K01:[facility] [address] [place] [address] Laboratory Report Ordering Provider Test Date Status TARA CHANG 12/07/2023 07:06:49 Final Observation Date Value Abnormality Reference (Units ) Status Creatinine 12/07/2023 07:06:49 0.5 0.5-1.0 (mg/dL) Final Glomerular filtration rate/1.73 sq M.predicted [Volume Rate/Area] in Serum, Plasma or Blood by Creatinine-based formula (CKD-EPI) 12/07/2023 07:06:49 >90 >=60 (mL/min) Final eGFR is calculated based on the CKD-EPI 2020 equation Performing Location [facility] [address] [place] [address]
--- OUTSIDE RECORDS SUMMARY | 2024-02-26 08:21 | External Medical Summary ---
Author Name Unknown Address Unknown Organization K01:[facility]ATORY [facility] - [address] [place] [address] Laboratory Report Ordering Provider Test Date Status CHUCK CHANGHELENA 12/07/2023 07:06:49 Final Observation Date Value Abnormality Reference (Units ) Status Retic, % (auto) 12/07/2023 07:06:49 2.46 Above high normal 0.80-1.90 (%) Final Reticulocytes, Absolute 12/07/2023 07:06:49 92.5 31.3-100.1 (K/uL) Final Reticulocyte fraction, immature 12/07/2023 07:06:49 21.1 Above high normal 2.5-20.6 (%) Final Reticulocyte HGB 12/07/2023 07:06:49 35.3 29.7-37.4 (pg) Final Performing Location LABORATORY [facility] - [address] [facility] [address]
--- OUTSIDE RECORDS SUMMARY | 2024-02-26 08:21 | External Medical Summary | Summary of Care ---
Author Name Unknown Organization [facility] Address [address] [place] [address] Phone [phone] Care Team Providers Care Fast Food Crew Lead Name Role Phone Alex Hopkins DO Primary Care Provider Reason for Referral * Evaluate & Treat - Unlimited Visits (Within 3 days (urgent)) - Pending Review Specialty Diagnoses / Procedures Referred By Salina atkinson Referred To Contact Baker Pie Diagnoses Diet controlled gestational diabetes mellitus (GDM) in third trimester Leidy Lucas CRNP [address] [facility] [address] [place] [address] Referral ID Status Reason Start Date Expiration Date Visits Requested Visits Authorized [id number] Pending Review Specialty Services Required 12/11/2023 1 1 Question Answer Referral Priority Within 3 days (urgent) Where should this appointment be scheduled? [facility] Program Type Chronic Disease Management Chronic Disease Management Diabetes in Alarm Settings Standard per protocol Comments Has OneTouch Verio meter Reason for Visit * Reason Comments Consultation Gestational diabetes Encounter Details Date Type Department Care Team (Late st Contact Info) Description 12/11/2023 9:00 AM EST Telemedicine Java Enterprise [employer] Obstetrics Maternal Medicine, [place] [address] [facility] [address] [place] [address] Leidy Lucas CRNP [address] [facility] [address] [place] [address] Diet controlled gestational diabetes mellitus (GDM) in third trimester*; Supervision of high risk , antepartum, third trimester; 28 weeks gestation of Allergies Active Allergy Reactions Criticality Noted Date Comments Sulfa Antibiotics 08/15/2002 documented as of this encounter (statuses as of 12/11/2023) Medications Medication Sig Dispensed Refills Start Date End Date Status 28-0.8 MG Oral Tablet Take by mouth. 0 Active B Complex Vitamins Oral Capsule Take 1 Capsule by mouth in the morning. 0 Active Breast PumpIndications:[place] st feeding status of mother Estimated Date of Delivery: 02/29/24, Z39.1, double electric breast pump 1 Each 0 10/12/2023 Active VigilentTouch VerTalentSoft Flex System w/Device KitIndications:Diet controlled gestational diabetes mellitus (GDM) in third trimester Use to test blood sugars 4 times daily (fasting, 1 hour after breakfast, lunch, and dinner) 1 Kit 0 12/07/2023 Active [employer] In Vitro Strip (Glucose Blood)Indications:Di et controlled gestational diabetes mellitus (GDM) in third trimester Use to test blood sugars 4 times daily (fasting, 1 hour after breakfast, lunch, and dinner) 125 Strip 6 12/07/2023 Active [employer] Delica Lancets 30GIndications:Diet controlled gestational diabetes mellitus (GDM) in third trimester Use to test blood sugars 4 times daily (fasting, 1 hour after breakfast, lunch, and dinner) 200 Each 6 12/07/2023 Active documented as of this encounter (statuses as of 12/11/2023) Active Problems Problem Noted Date Diagnosed Date [...] 10:07 AM 100-G GESTATIONAL GLUCOSE, FASTING - MIRYAM 89 12/07/2023 07:06 AM 12/11/23: MFM ADAPT [...] Recommend nutrition consult with RDN (Registered Dietitian Planer Operator / Grader). Lifestyle changes are also indicated including optimizing [...] as of this encounter (statuses as of 12/11/2023) Resolved Problems Problem Noted Date Diagnosed Date Resolved Date High-risk 08/16/2023 08/21/20 23 IUD contraception 12/30/2019 08/15/2023 documented as of this encounter (statuses as of 12/11/2023) Immunizations Name Administration Dates Next Due DTP [...] money to get more. Never true 08/16/2023 Leupp Depression Scale Answer Date Recorded Leupp Depression Scale Total 2 08/16/2023 The thought [...] Progress Notes * Leidy Lucas CRNP - 12/11/2023 9:17 AM EST MATERNAL MEDICINE CONSULT Viviana Miller 12/11/23 REFERRING PROVIDER: KATIE Domingo Patient location: HOME. I was in a hospital or clinic location. After connecting through televideo,patient was verified with two unique identifiers. Patient (or authorized legal vaccine customer representative) was then informed that this was a Telemedicine visit and being conducted confidentially over secure lines. Methods to assure confidentiality were taken. Patient acknowledged consent and understanding of pr ivacy and security of the Telemedicine visit. The patient agreed to participate. Viviana Miller is a 33 year old with intrauterine at 28w4d (Estimated Date of Delivery: 02/29/24 by embryo transfer on 06/13/23 ) who presents today for an MFM consult due to gestational diabetes. Ms. Miller had a full MFM consult on 08/21/23 due to in vitro fertilization (surrogate), history of gestational diabetes and history of previous C-sections. HPI/CURRENT : pre- BMI=class 1 obesity (70.3 kg (155 lb); 5'); complicated by above. Genetic testing: Low Risk Cell Free DNA OB [facility] Problems (from 08/09/23 to present) Problem Noted Resolved Diet controlled gestational diabetes mellitus (GDM) in third trimester Overview Addendum 12/11/2023 9:09 AM by Leidy Lucas CRNP Diagnosed at 28 weeks Nutrition consult ordered [...] MFM ADAPT consult complete. Enrolled in Current [facility]. Instructions provided to report blood sugars each week for MFM review I have reviewed this patient's previous OB ultrasound reports, pertinent labwork and testing provided by her referring OB provider. Current Outpatient Medications Medication Sig Dispense Refill B Complex Vitamins Oral Capsule Take 1 Capsule by mouth in the morning. Breast Pump Estimated Date of Delivery: 02/29/24, Z39.1, double electric breast pump 1 Each 0 OneTouch Delica Lancets 30G Use to test blood sugars 4 times daily (fasting, 1 hour after breakfast, lunch, and dinner) 200 Each 6 OneTouch Verio Flex System w/Device Kit Use to test blood sugars 4 times daily (fasting, 1 hour after breakfast, lunch, and dinner) 1 Kit 0 OneTouch Verio In Vitro Strip (Glucose Blood) Use to test blood sugars 4 times daily (fasting, 1 hour after breakfast, lunch, and dinner) 125 Strip 6 28-0.8 MG Oral Tablet Take by mouth. No current facility-administered medications for this visit. Review of patient's allergies indicates: Allergen Reactions Sulfa Antibiotics OB History Para Term AB Living 3 2 2 0 0 2 SAB IAB Ectopic Multiple Live Births 0 0 0 0 2 # Outcome Date GA Lbr Marin/2nd Weight Sex Delivery Anes PTL Lv 3 Current 2 Term 07/10/19 39w0d M CS-Unspec Spinal ESTEBAN Comments: GDM insulin controlled / elective repeat 1 Term 12/16/17 39w0d M AB, SP, 2 EPI, Spinal ESTEBAN Comments: due to failure to progress / Also GDM diet controlled Complications: Failure to Progress in First Stage Obstetric Comments 2017, 2018 Fob #1: Bharath 2023: surrogate carrier Past Medical History: Diagnosis Date GDM (gestational diabetes mellitus) Past Surgical History: Procedure Laterality Date CREATE EARDRUM OPENING,GEN'L ANESTH Bilateral 09/19/2022 TYMPANOSTOMY INSERTION TUBE GENERAL ANESTHESIA performed by Leonardo Castro DO at OR [facility] EMBRYO TRANSFER INTRAUTERINE INFORMATION tubes in ears ID DELIVERY ONLY x2 REDUCTION OF BREAST 2010 REMOVE TONSILS & ADENOIDS, UNDER 12 Tonsillectomy/Adenoids,<12 Y/O Family History Problem Relation Age of Onset Hypertension Father Hodgkin's lymphoma Sister Breast Cancer Aunt (Unspecified) Other (skin disorders) Other none known in family Social History Tobacco Use Smoking status: Never Smokeless tobacco: Never Vaping Use Vaping Use: Never used Substance Use Topics Alcohol use: No Drug use: Never REVIEW OF SYSTEMS: headaches: no nausea/vomiting: reports occas n/v reports movement: yes abdominal pain/tenderness/cramping/contractions: no vaginal bleeding: no vaginal leaking of fluid: no all other systems negative PHYSICAL EXAM: LMP 05/28/2023 (Approximate) General: Well appearing Psych: Alert to time, place, and person and Pleasant DISCUSSION/RECOMMENDATIONS: Problem List Items Addressed This Visit OB [facility]ello Diet controlled gestational diabetes mellitus (GDM) in third trimester - Primary CONSIDERATIONS: Reviewed etiology and risks associated with gestational diabetes mellitus (GDM), including risks topregnancy, fetus, and maternal progression to Type 2 [...] Recommend nutrition consult with RDN (Registered Dietitian Planer Operator / Grader). Lifestyle changes are also indicated including optimizing gestational weight gain and physical activity of 30 minutes per day, if not otherwise contraindicated in . Insulin is preferred if medications are indicated to optimize euglycemia. Metformin (preferred overglyburide) may also be used in some circumstances. [...] with 75-gram glucose load 6-8 weeks . Relevant Orders REMOTE PATIENT MONITORING REFERRAL Other Visit Diagnoses Supervision of high risk , antepartum, third trimester 28 weeks gestation of Follow up ultrasound with Maternal Medicine is scheduled on 01/03/[address] Lomas for growth scan Patient is aware of upcoming MFM appointment. KATIE Rader 12/11/2023 9:40 AM documented in this encounter Miscellaneous Notes * Assessment & Plan Note - Leidy Lucas CRNP - 12/11/2023 9:09 AM EST Associated Problem(s): Diet controlled gestational diabetes mellitus (GDM) in third trimester CONSIDERATIONS: Reviewed etiology and risks associated with gestational diabetes mellitus (GDM), including risks topregnancy, fetus, and maternal progression to Type 2 [...] Recommend nutrition consult with RDN (Registered Dietitian Planer Operator / Grader). Lifestyle changes are also indicated including optimizing gestational weight gain and physical activity of 30 minutes per day, if not otherwise contraindicated in . Insulin is preferred if medications are indicated to optimize euglycemia. Metformin (preferred overglyburide) may also be used in some circumstances. [...] with 75-gram glucose load 6-8 weeks . * Pt Handout (on AVS) - Leidy Lucas CRNP - 12/11/2023 9:01 AM EST Images from the original note were not included. Managing Gestational Diabetes - Video Being diagnosed with gestational diabetes can be stressful. But with proper care and management, you can stay healthy and deliver a healthy baby. In many cases, gestational diabetes goes away on its own after the mother gives . To view the video go to this web address: [email or web address] Or, scan this QR code with your smart phone [employer]. * Pt Handout (on AVS) - Leidy Lucas CRNP - 12/11/2023 9:01 AM EST Images from the original note were not included. [id number] Gestational Diabetes: After Your blood sugar will most likely return to normal after delivery. But gestational diabetes is a warning sign that you are at risk of getting diabetes later in life. You?re also more likely to have gestational diabetes with your next . But you can take steps to reduce these risks. Taking care of yourself Even if your blood sugar goes back to normal, you still need to take care of yourself. This will help prevent diabetes later in life. You'll need to: Keep your weight down. Eating food that is low in fat and sugar can help you control your weight. If you?re overweight, your risk of getting diabetes in 10 to 15 years more than doubles. Keeping your weight down also reduces your risk of gestational diabetes in your next . Get regular exercise. Exercise helps lower your blood sugar. It can also help you control your weight. Try to work up to at least 150 to 300 minutes of moderate exercise every week. This is at least 30 minutes each day. Have your blood sugar checked. Make an appointment to have your blood sugar checked 6 to 8 weeksafter delivery. If your blood sugar is still high, you may have type 2 diabetes. Your healthcare provider will tell you more about how to manage diabetes long-term. Have regular diabetes screenings. Have blood tests every year, or as often as your healthcare provider advises. Breastmilk is the best food for your baby. Giving only breastmilk is advised for at least your baby's first 6 months. may also help lower your blood sugar. Your healthcare provider can show you how to breastfeed. Be sure to eat healthy foods and drink extra water while you?re . You may find exercise easier right after . This is when your breasts may feel public service director. Planning a future Your blood sugar needs to be back to normal before you get again. Have your blood sugar checked before you plan your next . And remember that it?s possible to get again soon after you give . Talk with your healthcare provider about the best method of control for you and your partner. Last Reviewed Date: 11/29/202119998517-3201 [employer]. All rights reserved. This information is not intended as a substitute for professional medical care. Always follow your healthcare professional's instructions. * Pt Handout (on AVS) - Leidy Lucas CRNP - 12/11/2023 9:01 AM EST Images from the original note were not included. 75414 What Is Gestational Diabetes? Diabetes is when [...] person who can help. Last Reviewed Date: 05/29/202319997285-5467 [employer]. All rights reserved. This information is not intended as a substitute for professional medical care. Always follow your healthcare professional's instructions. * Pt Handout (on AVS) - Leidy Lucas CRNP - 12/11/2023 9:01 AM EST [id number] Understanding Blood Sugar During Gestational diabetes causes high blood sugar levels during . You are at risk of developing, or perhaps have already developed, gestational diabetes. Controlling your blood sugar can help prevent problems for you and your baby. Your body turns food into blood sugar As food is digested, it turns into sugar (glucose), a fuel that feeds your body. This sugar goes into your bloodstream. Your body then releases a substance called insulin to help your body use blood sugar correctly. Blood sugar goes to your baby The placenta is where nutrients in your blood are exchanged with your baby's blood. Your blood sugar goes to your baby from the placenta through the umbilical cord. Your baby uses this sugar to grow. Too much blood sugar affects you and your baby During , the placenta makes hormones that can disrupt the way your body uses insulin. If your body can't use insulin correctly, your blood sugar level gets too high. Then too much blood sugar goes to your baby. This can cause problems for both you and your baby. Controlling your blood sugar helps prevent problems You can lower your blood sugar by eating right, exercising, and taking medicines that your healthcare provider prescribes to control your blood sugar. If you keep your blood sugar in control, the risks to you and your baby are the same as those for a normal . Last Reviewed Date: 04/28/202119992989-3689 [employer]. All rights reserved. This information is not intended as a substitute for professional medical care. Always follow your healthcare professional's instructions. * Pt Handout (on AVS) - Leidy Lucas CRNP - 12/11/2023 9:01 AM EST Images from the original note were not included. 75453 Understanding Carbohydrates A car needs the right [...] of rice 4 to 6 crackers 1/2 Nicaraguan muffin 1/2 cup of black beans 1/4 of a large baked potato (3 ounces) 2/3 cup of plain fat-free yogurt 1 cup of soup 1/2 cup of casserole 6 chicken nuggets [id number] brownie or cake without frosting 2 small [...] carbs you should have. Last Reviewed Date: 09/28/202119990467-2095 [employer]. All rights reserved. This information is not intended as a substitute for professional medical care. Always follow your healthcare professional's instructions. * Pt Handout (on AVS) - Leidy Lucas CRNP - 12/11/2023 9:01 AM EST Images from the original note were not included. 35613 Diabetes: Shopping for and Making Meals Having diabetes doesn?t mean you have to shop in a special aisle or look for special foods. But you'll need to make healthy food choices. Comparing items and reading food labels is haley. This can helpyou find the healthiest foods for you and your family. Comparing items When you shop, compare items to find the best ones for your needs. Keep these facts in mind: No sugar added doesn't mean a product is sugar-free. Sugar-free means less than 1/2 gram (g) of sugar per serving. Fat-free means less than 1/2 g of fat per serving. This does not necessarily mean the product islow in calories. Low fat means 3 g fat or less per serving. Reduced fat or less fat means 25% less fat than the regular version. Some of this fat may be saturated or trans fat. And the calories per serving may be similar to the regular version. Making small changes Don?t try to change all of your eating habits at once. Here are some ideas to start with: Try fat-free or low-fat cheese, milk, and yogurt. Also try leaner cuts of meat. This will help you cut down on saturated fat. Try whole-grain breads, brown rice, and whole-wheat pasta. Load up on fresh or frozen vegetables. If you buy canned, choose low-sodium vegetables. Stay away from processed foods as much as possible. They tend to be low in fiber and high in trans fats and salt. Limit how much salt you have to 2,300 mg per day. Try tofu, soymilk, or meat substitutes.?They can help you cut cholesterol and saturated fat out of your diet. Learning to read food labels To find healthy foods that help you control blood sugar, learn how to read food labels. Look for the Nutrition Facts label on packaged foods. It will tell you how many servings there are in the package. It will also tell you the amount of carbohydrate, sugar, fat, and fiber in each serving. Then you can decide if the food fits into your meal plan. Using the food label So, once you have the food label, what do you do with it? The food label helps in many ways. Use itto: Compare items. Decide which is the best for your health needs. Track the number of carbohydrates in your portions. Figure out how many servings of a food you can have and still stay within the number of carbohydrates for that meal. Planning meals For good blood sugar control, plan what and when you?ll eat. Start by making a meal plan that includes all the food groups. Then time your meals and exercise to help keep your blood sugar level steady. You may need to adjust your plan for special situations. But 3 of the best ways to manage your blood sugar are to: Eat meals and snacks at the same time every day Eat about the same amount of food Exercise each day Eat from all the food groups A healthy meal plan starts with eating many different types of foods. Look for lean meats, fresh fruits and vegetables, whole grains, and low-fat or nonfat dairy products. Eating a wide variety of healthy foods offers the nutrients your body needs. It can also keep you from getting bored with your meal plan. Reduce liquid sugars Extra calories from sodas, sports drinks, and fruit drinks make it hard to keep blood sugar in range. Cut as many liquid sugars from your meal plan as you can. This includes most fruit juices. These are often high in natural or added sugar. Instead, take plenty of water and other sugar-free drinks. Eat less fat If you need to lose some weight, try to reduce the amount of fat in your diet. This can also help lower your cholesterol level. This can keep blood vessels healthier. Cut fat by using only small amounts of liquid oil for cooking. Read food labels carefully. This can help you stay away from foods with unhealthy trans fats. Timing your meals When it comes to blood sugar control, when you eat is as important as what you eat. You may need toeat several small meals spaced evenly during the day. This can help you stay in your target range. So don?t skip breakfast or wait until late in the day to get most of your calories. Doing so can make your blood sugar rise too high or fall too low. Cooking wisely Broil, steam, bake, or grill meats and vegetables. Don't cordoba them. Flavor foods with vegetable pure, lemon or ione juice, or herb seasonings. Don't use cream-based sauces or sugary glazes. Remove skin from chicken and turkey before serving. Look in cookbooks for easy low-fat, low-sugar recipes. When making your normal recipes, cut sugar by 1/2. Cut fat by 1/3. Last Reviewed Date: 09/28/202119999735-5434 [employer]. All rights reserved. This information is not intended as a substitute for professional medical care. Always follow your healthcare professional's instructions. * Pt Handout (on AVS) - Leidy Lucas CRNP - 12/11/2023 9:01 AM EST Images from the original note were not included. [id number] Gestational Diabetes: Exercise Exercise can help you keep your blood sugar in a normal range. That?s because your body uses more blood sugar when you exercise. Diabetes in can often be managed with careful nutrition and exercise alone. Then you may not need medicine to control your blood sugar. Exercise regularly Your healthcare provider may want you to exercise each day. The best time depends on when your blood sugar is highest. Exercising may also help ease some common symptoms of . These include bloating, constipation, and backaches. Ask about exercise at your first care visit. Your provider will work with you to make an exercise plan that fits your needs. Here are some tips: Aim to exercise for 30 to 60 minutes a day. Do this at moderate intensity. This means you're moving enough to raise your heart rate and start sweating. But you can still talk normally. Try breaking up daily exercise into 2 or 3 sessions. For example, take a 15- minute walk after each meal. Exercise with a friend or your partner. This may help you stick to your exercise plan. Go at a comfortable pace. Don?t tire yourself out. Exercise safely Ask your provider about exercise safety for you and your baby. Walking, swimming, and low-impact orwater aerobics are often the safest things to do. Other safety tips include: Don't do activities where you jump, turn, twist, stop or start quickly. Don't lift heavy weights. Don't exercise on your back after the first trimester. This can put too much pressure on an important vein. It can limit blood flow to the baby. If you do yoga or Pilates, find a class designed for . Use a sports bra to support your breasts. You may also want to use a belly support belt later inpregnancy. Don't get overheated. Don't do hot yoga or hot Pilates. Don't raise your heart rate to a level that makes it hard to talk. Drink plenty of water. If you use insulin, carry a carbohydrate snack with you. If you walk or do low-impact aerobics, wear sturdy shoes. If you haven?t eaten in 2 or more hours, have a light snack before exercising. Don't do contact sports that put you at risk of being hit in the belly. These include boxing, ice hockey, soccer, and basketball. Don't go skydiving or scuba diving. Don't do things that may cause a serious fall. These include horseback riding, gymnastics, and off-road cycling. Use a stationary bike. It's a safer choice than a standard bike. It will stop you from getting off balance with your growing belly. When it's not safe to exercise It's not advised to exercise when if you have any of these health conditions: Some types of heart and lung diseases with twins or more, and at risk for labor labor of your water has broken (ruptured membranes) Placenta previa later than 26 weeks of Preeclampsia or high blood pressure due to Severe anemia Cervical insufficiency or cerclage When to call your healthcare provider Call your provider right away or go to the emergency room (ER) if you have any of these: Belly pain Shortness of breath before starting exercise Vaginal bleeding Dizziness or feeling faint Chest pain Headache Decreased movement contractions Muscle weakness Calf pain or swelling Fluid leaking from the vagina Last Reviewed Date: 11/29/202119996556-3855 [employer]. All rights reserved. This information is not intended as a substitute for professional medical care. Always follow your healthcare professional's instructions. * Pt Handout (on AVS) - Leidy Lucas CRNP - 12/11/2023 9:01 AM EST Images from the original note were not included. 12557 Healthy Meals for Diabetes Ask your healthcare [...] of rice 4 to 6 crackers 1/2 Nicaraguan muffin 1/2 cup of black beans 1/4 of a large baked potato (3 ounces) 2/3 cup of plain fat-free yogurt 1 cup of soup 1/2 cup of casserole 6 chicken nuggets 8-vwkq-wavmku brownie or cake without frosting 2 small [...] plate. This will help when you're away fromhome and can?t measure your servings. For instance, [...] yourself by bringing a healthy dish to [employer]. Choose healthy snacks When it comes to [...] sugar could get toohigh. Last Reviewed Date: 09/28/202119997071-2501 The [employer]. All rights reserved. This information is not intended as a substitute for professional medical care. Always follow your healthcare professional's instructions. * Pt Handout (on AVS) - Leidy Lucas CRNP - 12/11/2023 9:01 AM EST Images from the original note were not included. 10041 If You Need Extra Insulin During During , your body may not be able to make enough insulin to control your blood sugar. If this happens, you may need extra insulin. This will help control your blood sugar. In some cases, anoral antidiabetic medicine may be used. An example of this is glyburide. But insulin is used most often. Insulin is a natural substance. It is not addictive. It does not harm your baby. It does not cross the placenta. That means it does not affect your baby the way taking a pill would. If you did not have diabetes before , you will likely stop taking insulin after your baby is born. Learning to use insulin Your healthcare provider will prescribe your insulin. They will teach you how to give yourself a shot. With practice, you?ll get comfortable doing it. You will need to inject it 1 or more times a day. Insulin is injected into fatty tissue. The best site for a shot of insulin is in your belly area. But you can also do the shot in your upper arm or thigh. Talk with your healthcare provider about where to give the shot. Here are some steps to follow: Choose an injection site. Clean it with alcohol if the skin is dirty. Pinch a fold of skin. Insert the needle at a steep angle. The best angle will depend on your body type, the length of the needle, and where you put the shot. Your healthcare provider will help youfind the best angle. Keeping the skin pinched, push the plunger down. This injects the insulin. Release the pinched skin. Remove the needle from your skin. If you see blood or insulin leaking from your skin, press firmly on the site for 5 to 8 seconds. Don?t rub your skin in the area. [place] and syringes should be used only 1 time. After using, throw them away in a puncture-proof container. This is known as a sharps container. Don?t throw needles in your household trash. Talk to your healthcare provider if you have any questions or concerns about taking insulin. The best site for injecting insulin is your abdomen. But you can also inject into an upper arm or thigh. Talk with your health care provider about where to give yourself a shot. Finding the right dose for you Your healthcare provider will work with you to find the right dose of insulin for you. It may take time. This is because you need to balance your insulin with your food and exercise. And your body needs more insulin as your baby grows. You must check your blood sugar several times a day. This is to be sure your insulin is working. Ifyour blood sugar is too high or too low, your healthcare provider will adjust your dose. Low blood sugar Taking insulin puts you at risk of low blood sugar. Symptoms of low blood sugar include: Shakiness Dizziness Weakness Confusion If you feel any of these symptoms, check your blood sugar right away. Always treat low blood sugar quickly. To do this, eat 15 grams of fast-acting sugar, such as: 3 glucose tablets 5 to 6 pieces of hard candy 1 to 2 tablespoons of honey or sugar cup fruit juice or regular, nondiet soda 1 cup fat-free milk Then check your blood sugar again in 15 minutes. If your blood sugar is still low, eat another 15 grams of sugar. If your blood sugar does not return to the target range in 30 minutes, call your healthcare provider. Last Reviewed Date: 09/28/202219996434-7209 [employer]. All rights reserved. This information is not intended as a substitute for professional medical care. Always follow your healthcare professional's instructions. * Pt Handout (on AVS) - Leidy Lucas CRNP - 12/11/2023 9:01 AM EST Images from the original note were not included. Diabetes and Healthy Eating - Video If you have diabetes, you know it's important to keep your blood glucose level within a safe range.One of the best ways to do this is by eating a healthy diet. Let's take a few minutes to learn about some good eating habits that can make a difference for you. To view the video go to this web address: [email or web address] Or, scan this QR code with your smart phone [employer]. documented in this encounter Plan of Treatment Upcoming Encounters Date Type Department Care Team (Late st Contact Info) Description 12/21/2023 8:15 AM EST Office Visit Gynecology/Obstetrics Mayuri Botello [address] [place] [address] Page Negron PA-C [address] [place] [address] 01/03/2024 9:30 AM EST Office Visit Java Enterprise Architect Obstetrics Maternal Medicine, [facility] [address] [place] [address] Mary Lomas, DO [address] [place] [address] 01/03/2024 9:30 AM EST Imaging Maternal Medicine Imaging, [facility] [address] [place] [phone] 01/08/2024 8:30 AM EDT Office Visit Gynecology/Obstetrics [facility] [address] [place] [phone] Jany Billings CRNP [address] [place] [address] 01/22/2024 8:45 AM EDT Office Visit Gynecology/Obstetrics [facility] [address] [place] [address] Jany Billings CRNP [address] [place] [address] 03/04/2024 10:20 AM EDT Office Visit Otolaryngology [facility] [address] [place] [address] Mallory Murray PA-C [address] [place] [address] Scheduled Referrals Name Type Priority Associated Diagnoses Orde r Schedule REMOTE PATIENT MONITORING REFERRAL Referral Within 3 days (urgent) Diet controlled gestational diabetes mellitus (GDM) in third trimester Ordered: 12/11/2023 Health Maintenance Due Date Last Done Comments [...] this encounter Medical Devices Implanted Type Area Forming Mill Operator Device Identifier Shelf Expiration Date Model / Serial / Lot Tube Ventilation 4.8mmx1.32mm - [id number] Implanted:Qty: 1 on 09/19/2022 by Leonardo Castro DO at OR [facility] Left: Ear [employer] 02/08/2031 [id number] / / [id number] documented as of this encounter Visit Diagnoses Diagnosis Diet controlled gestational diabetes mellitus (GDM) in third trimester- Primary Supervision of high risk , antepartum, third trimester 28 weeks gestation of state, incidental documented in this encounter Care Teams Fast Food Crew Lead Relationship Specialty Start Date End Date Alex Hopkins DO [address] [place] [address] PCP - General Family Medicine 12/30/19 documented as of this encounter
--- OUTSIDE RECORDS SUMMARY | 2024-02-26 08:21 | External Medical Summary | Summary of Care ---
Author Name Unknown Organization [facility] [address] [address] Phone [phone] Care Team Providers Care Marine Steamfitter Name Role Phone Alex Hopkins DO Primary Care Provider Reason for Visit * Reason Comments Return Visit Encounter Details Date Type Department Care Team (Latest Contact Info) Description 12/07/2023 8:30 AM EST Office Visit Gynecology/Obstetric s Mayuri Botello [address] [place] [phone] Magdalena Patel CRNP [address] [place] [address] resulting from in vitro fertilization in third trimester*; Supervision of high risk in third trimester; History of gestational diabetes mellitus (GDM); History of section complicating ; Obesity in , antepartum; Surrogate ; Need for prophylactic vaccination with combined rfddarreof-xqcwagl-ddf tussis (DTP) vaccine Allergies Active Allergy Reactions Criticality Noted Date [...] Date Diagnosed Date Resolved Date High-risk 08/16/2023 10/24/20 23 IUD contraception 12/30/2019 08/15/2023 documented as of this encounter (statuses as of 12/07/2023) Immunizations Name Administration Dates Next Due DTP Vaccine 08/23/1995, 2,1991, 991,1991 DTaP HIB - Dipth/Tet/Acell Pert/HIB 07/0 06/1992,1991,1991, 991 Hepatitis B Vaccine 12/19/2012,07/16/2012,2011 Hepatitis [...] money to get more. Never true 08/16/2023 Franklin Depression Scale Answer Date Recorded Franklin Depression Scale Total 2 08/16/2023 The thought [...] Sign Reading Time Taken Comments Blood Pressure 104/62 12/07/2023 8:14 AM EST Pulse - - Temperature - - Respiratory Rate - - Oxygen Saturation - - Inhaled Oxygen Concentration - - Weight 73.9 kg (163 lb) 12/07/2023 8:14 AM EST Height 152.4 cm (5') 12/07/2023 8:14 AM EST Body Mass Index 31.83 12/07/2023 8:14 AM EST documented in this encounter Progress Notes * Magdalena Patel CRNP - 12/07/2023 8:32 AM EST 28w C/o heartburn. Tums helping somewhat. Tried Pepcid, but was waiting until she had heartburn to takeit, and it didn't work. Suggested she either try Pepcid or Prilosec first thing in the morning eachday rather than waiting for symptoms to start. No other concerns. Baby is active. No contractions or bleeding. Completing 3hr GTT today. TDAP today. Message to Krissy to schedule repeat c/s. KATIE Arauz documented in this encounter Nursing Notes * Ann Park LPN - 12/07/2023 8:35 AM EST Patient here for tdap injection. Patient doing well no complaints. Injection given IM as ordered. Patient tolerated well. Patient to follow up as directed. Patient instructed to call if any complications. Patient verbalized understanding of instructions given and her follow up appt for 2 weeks Injection site: Left Deltoid Medication Source: Dispensed stock medication * Ann Park LPN - 12/07/2023 8:22 AM EST 28w0d Doing glucola today Would like tdap documented in this encounter Plan of Treatment Upcoming Encounters Date Type Department Care Team (Late st Contact Info) Description 12/21/2023 8:15 AM EST Office Visit Gynecology/Obstetrics Mayuri Botello [address] [place] [address] Page Negron PA-C [address] [place] [address] 01/03/2024 9:30 AM EST Office Visit Restaurant Team Member Obstetrics Maternal Medicine, Manoj Botello [address] [place] [address] Mary Lomas, DO [address] [place] [address] 01/03/2024 9:30 AM EST Imaging Maternal Medicine Imaging, [facility] Botello [address] [place] [phone] 01/08/2024 8:30 AM EDT Office Visit Gynecology/Obstetrics Mayuri Botello [address] [place] [address] Jany Bililngs CRNP [address] [place] [address] 01/22/2024 8:45 AM EDT Office Visit Gynecology/Obstetrics Mayuri Botello [address] [place] [address] Jany Billings CRNP [address] [place] [address] 03/04/2024 10:20 AM EDT Office Visit Otolaryngology [facility] [address] [place] [address] Mallory Murray PA-C [address] [place] [address] Health Maintenance Due Date Last Done Comments [...] this encounter Medical Devices Implanted Type Area Polystyrene Bead Molder Device Identifier Shelf Expiration Date Model / Serial / Lot Tube Ventilation 4.8mmx1.32mm - [id number] Implanted:Qty: 1 on 09/19/2022 by Leonardo Castro DO at OR [facility] Left: Ear [employer] 02/08/2031 [id number] / / [id number] documented as of this encounter Visit Diagnoses Diagnosis resulting from in vitro fertilization in third trimester- Primary Supervision of high risk in third trimester Unspecified high-risk History of gestational diabetes mellitus (GDM) History of section complicating Previous delivery, unspecified as to episode of care or not applicable Obesity in , antepartum Obesity complicating , childbirth, or the puerperium, antepartum condition or complication Surrogate state, incidental Need for prophylactic vaccination with combined ydrqsubqfy-ykujjsd-srnroyeyx (DTP) vaccine documented in this encounter Care Teams Marine Steamfitter Relationship Specialty Start Date End Date Alex Hopkins DO [address] [place] [address] [address] PCP - General Family Medicine 12/30/19 documented as of this encounter
--- OUTSIDE RECORDS SUMMARY | 2024-02-26 08:21 | External Medical Summary | Summary of Care ---
Author Name Unknown Organization [facility] Address [address] [place] [address] Phone [phone] Care Team Providers Care Support Engineer Name Role Phone Alex Hopkins DO Primary Care Provider Reason for Referral * Evaluate & Treat - Unlimited Visits (Within 3 days (urgent)) - Pending Review Specialty Diagnoses / Procedures Referred By Salina atkinson Referred To Contact Automatic Buffer Diagnoses Diet controlled gestational diabetes mellitus (GDM) in third trimester Leidy Lucas CRNP [address] [facility] [address] [place] [address] Referral ID Status Reason Start Date Expiration Date Visits Requested Visits Authorized [id number] Pending Review Specialty Services Required 12/11/2023 1 1 Question Answer Referral Priority Within 3 days (urgent) Where should this appointment be scheduled? [facility] Program Type Chronic Disease Management Chronic Disease Management Diabetes in Alarm Settings Standard per protocol Comments Has OneTouch Verio meter Reason for Visit * Reason Comments Consultation Gestational diabetes Encounter Details Date Type Department Care Team (Late st Contact Info) Description 12/11/2023 9:00 AM EST Telemedicine Food Preparation Worker Obstetrics Maternal Medicine, [place] [address] [facility] [address] [place] [address] Leidy Lucas CRNP [address] [facility] [address] [place] [address] Diet controlled gestational diabetes mellitus (GDM) in [...] mouth in the morning. 0 Active Breast PumpIndications:[place] st feeding status of mother Estimated Date of Delivery: 02/29/24, Z39.1, double electric breast pump 1 Each 0 10/12/2023 Active Attune SystemsTouch VerEnergy Focus Flex System w/Device KitIndications:Diet controlled gestational diabetes mellitus (GDM) in third trimester Use to test blood sugars 4 times daily (fasting, 1 hour after breakfast, lunch, and dinner) 1 Kit 0 12/07/2023 Active LiveClips In Vitro Strip (Glucose Blood)Indications:Di et controlled gestational diabetes mellitus (GDM) in third trimester Use to test blood sugars 4 times daily (fasting, 1 hour after breakfast, lunch, and dinner) 125 Strip 6 12/07/2023 Active Metrasens Delica Lancets 30GIndications:Diet controlled gestational diabetes mellitus [...] Recommend nutrition consult with RDN (Registered Dietitian Christmas Tree Grader). Lifestyle changes are also indicated including [...] money to get more. Never true 08/16/2023 Mattaponi Depression Scale Answer Date Recorded Matt[place]oni Depression Scale Total 2 08/16/2023 The thought [...] KATIE Domingo Patient location: HOME. I was not in a hospital or clinic location. After connecting through televHallpass Mediao, patient was verified with two unique identifiers. Patient (or authorized legal internet sales representative) was then informed that this was [...] testing: Low Risk Cell Free DNA OB [facility] Problems (from 08/09/23 to present) Problem Noted [...] MFM ADAPT consult complete. Enrolled in Current [facility]. Instructions provided to report blood [...] double electric breast pump 1 Each 0 Attune SystemsTouch Delica Lancets 30G Use to test blood [...] performed by Leonardo Castro DO at OR [facility] EMBRYO TRANSFER INTRAUTERINE INFORMATION tubes in [...] Recommend nutrition consult with RDN (Registered Dietitian Christmas Tree Grader). Lifestyle changes are also indicated including [...] Recommend nutrition consult with RDN (Registered Dietitian Christmas Tree Grader). Lifestyle changes are also indicated including [...] the video go to this web address: [email or web address] Or, scan this QR code with your smart phone Upstream. * Pt Handout (on AVS) - Leidy Lucas CRNP - 12/11/2023 9:01 AM EST Images from the original note were not included. [address] Gestational Diabetes: After Your blood sugar will [...] This is when your breasts may feel temper mill roller. Planning a future Your blood sugar needs to be back to normal before you get again. Have your blood sugar checked before you plan your next . And remember that it?s possible to get again soon after you give . Talk with your healthcare provider about the best method of control for you and your partner. Last Reviewed Date: 11/29/202119994286-4600 [employer]. All rights reserved. This information is not intended as a substitute for professional medical care. Always follow your healthcare professional's instructions. * Pt Handout (on AVS) - Leidy Lucas CRNP - 12/11/2023 9:01 AM EST Images from the original note were not included. 04694 What Is Gestational Diabetes? Diabetes is when [...] person who can help. Last Reviewed Date: 05/29/202319991941-5709 [employer]. All rights reserved. This information is not intended as a substitute for professional medical care. Always follow your healthcare professional's instructions. * Pt Handout (on AVS) - Leidy Lucas CRNP - 12/11/2023 9:01 AM EST 48791 Understanding Blood Sugar During Gestational diabetes causes [...] for a normal . Last Reviewed Date: 04/28/202119998889-7607 [employer]. All rights reserved. This information is not intended as a substitute for professional medical care. Always follow your healthcare professional's instructions. * Pt Handout (on AVS) - Leidy Lucas CRNP - 12/11/2023 9:01 AM EST Images from the original note were not included. 91364 Understanding Carbohydrates A car needs the right [...] of rice 4 to 6 crackers 1/2 Kosovan muffin 1/2 cup of black beans 1/4 of a large baked potato (3 ounces) 2/3 cup of plain fat-free yogurt 1 cup of soup 1/2 cup of casserole 6 chicken nuggets 1-gznv-hsfbbo brownie or cake without frosting 2 small [...] carbs you should have. Last Reviewed Date: 09/28/202119997242-5800 [employer]. All rights reserved. This information is not intended as a substitute for professional medical care. Always follow your healthcare professional's instructions. * Pt Handout (on AVS) - Leidy Lucas CRNP - 12/11/2023 9:01 AM EST Images from the original note were not included. 66172 Diabetes: Shopping for and Making Meals Having [...] Flavor foods with vegetable pure, lemon or [place]ab[place] juice, or herb seasonings. Don't use cream-based sauces or sugary glazes. Remove skin from chicken and turkey before serving. Look in cookbooks for easy low-fat, low-sugar recipes. When making your normal recipes, cut sugar by 1/2. Cut fat by 1/3. Last Reviewed Date: 09/28/202119992601-2950 [employer]. All rights reserved. This information is not intended as a substitute for professional medical care. Always follow your healthcare professional's instructions. * Pt Handout (on AVS) - Leidy Lucas CRNP - 12/11/2023 9:01 AM EST Images from the original note were not included. 09250 Gestational Diabetes: Exercise Exercise can help you [...] leaking from the vagina Last Reviewed Date: 11/29/202119991830-1620 [employer]. All rights reserved. This information is not intended as a substitute for professional medical care. Always follow your healthcare professional's instructions. * Pt Handout (on AVS) - Leidy Lucas CRNP - 12/11/2023 9:01 AM EST Images from the original note were not included. 83747 Healthy Meals for Diabetes Ask your healthcare [...] of rice 4 to 6 crackers 1/2 Kosovan muffin 1/2 cup of black beans 1/4 of a large baked potato (3 ounces) 2/3 cup of plain fat-free yogurt 1 cup of soup 1/2 cup of casserole 6 chicken nuggets 2-lecm-rvklcs brownie or cake without frosting 2 small [...] plate. This will help when you're [facility] and can?t measure your servings. For instance, [...] yourself by bringing a healthy dish to [employer]. Choose healthy snacks When it comes to [...] sugar could get toohigh. Last Reviewed Date: 09/28/202119994413-7143 [employer]. All rights reserved. This information is not intended as a substitute for professional medical care. Always follow your healthcare professional's instructions. * Pt Handout (on AVS) - Leidy Lucas CRNP - 12/11/2023 9:01 AM EST Images from the original note were not included. 88886 If You Need Extra Insulin During During [...] Don?t rub your skin in the area. [place] and syringes should be used only 1 [...] call your healthcare provider. Last Reviewed Date: 09/28/202219998343-5550 [employer]. All rights reserved. This information is not [...] the video go to this web address: [email or web address] Or, scan this QR code with your smart phone Upstream. documented in this encounter Plan of Treatment Upcoming Encounters Date Type Department Care Team (Late st Contact Info) Description 12/21/2023 8:15 AM EST Office Visit Gynecology/Obstetrics Mayuri Botello [address] [address] [address] Page Negron PA-C [address] [place] [address] 01/03/2024 9:30 AM EST Office Visit Food Preparation Worker Obstetrics Maternal Medicine, [facility] [address] [place] [address] Mary Lomas, DO [address] [place] [address] 01/03/2024 9:30 AM EST Imaging Maternal Medicine Imaging, [facility] [address] [place] [phone] 01/08/2024 8:30 AM EDT Office Visit Gynecology/Obstetrics [place] [address] [address] [place] [address] Jany Billings CRNP [address] [place] [address] 01/22/2024 8:45 AM EDT Office Visit Gynecology/Obstetrics [facility] [address] [place] [address] Jany Billings CRNP [address] [place] [address] 03/04/2024 10:20 AM EDT Office Visit Otolaryngology [facility] [address] [place] [address] Mallory Murray PA-C [address] [place] [address] Scheduled Referrals Name Type Priority Associated Diagnoses [...] this encounter Medical Devices Implanted Type Area Gluer Machine Setup Operator Device Identifier Shelf Expiration Date Model / Serial / Lot Tube Ventilation 4.8mmx1.32mm - [id number] Implanted:Qty: 1 on 09/19/2022 by Leonardo Castro DO at OR [facility] Left: Ear [employer] 02/08/2031 [id number] / / [id number] documented as of this encounter Visit Diagnoses Diagnosis Diet controlled gestational diabetes mellitus (GDM) in third trimester- Primary Supervision of high risk , antepartum, third trimester 28 weeks gestation of state, incidental documented in this encounter Care Teams Support Engineer Relationship Specialty Start Date End Date Alex Hopkins DO [address] [place] [address] PCP - General Family Medicine 12/30/19 documented as of this encounter
--- OUTSIDE RECORDS SUMMARY | 2024-02-26 08:21 | External Medical Summary | Summary of Care ---
Author Name Unknown Organization [facility] Address [address] [place] [address] Phone [phone] Care Team Providers Care Sawmill Production Worker Name Role Phone Sandeep Alex Floriankirk Primary Care Provider Reason for Visit * Reason Onset Date Comments Referral 12/07/2023 Encounter Details Date Type Department Care Team (Late st Contact Info) Description 12/07/2023 Telephone [place] Oven Operator Obstetrics Maternal Medicine, [place] [address] [place] [address] [place], Nurse [place] Oven Operator [facility] [address] [place] [address] Referral Allergies Active Allergy Reactions Criticality Noted Date Comments Sulfa Antibiotics 08/15/2002 documented as of this encounter (statuses as of 12/07/2023) Medications Medication Sig Dispensed Refills Start Date End Date Status 28-0.8 MG Oral Tablet Take by mouth. 0 Active B Complex Vitamins Oral Capsule Take 1 Capsule by mouth in the morning. 0 Active Breast PumpIndications:[place] st feeding status of mother Estimated Date of Delivery: 02/29/24, Z39.1, double electric breast pump 1 Each 0 10/12/2023 Active Monitor BacklinksTouch Verio Flex System w/Device KitIndications:Diet controlled gestational diabetes mellitus (GDM) in third trimester Use to test blood sugars 4 times daily (fasting, 1 hour after breakfast, lunch, and dinner) 1 Kit 0 12/07/2023 Active Monitor BacklinksTouch Verio In Vitro Strip (Glucose Blood)Indications:Di et controlled gestational diabetes mellitus (GDM) in third trimester Use to test blood sugars 4 times daily (fasting, 1 hour after breakfast, lunch, and dinner) 125 Strip 6 12/07/2023 Active OneTocoby Jimenez Lancets 30GIndications:Diet controlled gestational diabetes mellitus (GDM) [...] money to get more. Never true 08/16/2023 [place] Depression Scale Answer Date Recorded [place] Depression Scale Total 2 08/16/2023 The thought [...] encounter Miscellaneous Notes * Telephone Encounter - Viktoriya Enriquez OSA - 12/07/2023 2:33 PM EST Spoke with Viviana. Appointment scheduled. Patient aware of date, time and location of Maternal Medicine appointment. * Telephone Encounter - Lubna Castillo CCMA - 12/07/2023 2:00 PM EST Estimated Date of Delivery: 02/29/24 Please schedule for 45 MINUTE ADAPT WITH COMMERCIAL LINES ACCOUNT MANAGER, in time frame of within 1 week at location [facility]/Count Includes [facility] with the indication of GDM. Follow-up ultrasound scheduled 01/03/24. Referring Provider: Magdalena Patel CRNP documented in this encounter Plan of Treatment Upcoming Encounters Date Type Department Care Team (Late st Contact Info) Description 12/11/2023 9:00 AM EST Telemedicine [place] Oven Operator Obstetrics Maternal Medicine, [place] [address] Leidy Lucas CRNP [address] [address] 12/21/2023 8:15 AM EST Office Visit Gynecology/Obstetrics [facility] [address] [place], [place] [address] Page Negron PA-C [address] [place] [address] 01/03/2024 9:30 AM EST Office Visit [place] Oven Operator Obstetrics Maternal Medicine, [facility] [address] [place] [address] Mary Lomas, DO [address] [place] [address] 01/03/2024 9:30 AM EST Imaging Maternal Medicine Imaging, [facility] [address] [place] [phone] 01/08/2024 8:30 AM EDT Office Visit Gynecology/Obstetrics [facility] [address] [place] [address] Jany Billings CRNP [address] [place] [address] 01/22/2024 8:45 AM EDT Office Visit Gynecology/Obstetrics [facility] [address] [place] [address] Jany Billings CRNP [address] [place] [address] 03/04/2024 10:20 AM EDT Office Visit Otolaryngology [facility] [address] [place] [address] Mallory Murray PA-C [address] [place] [address] Health Maintenance Due Date Last Done Comments [...] this encounter Medical Devices Implanted Type Area Educational Therapy Teacher Device Identifier Shelf Expiration Date Model / Serial / Lot Tube Ventilation 4.8mmx1.32mm - [id number] Implanted:Qty: 1 on 09/19/2022 by Leonardo Castro DO at OR [facility] Left: Ear [employer] 02/08/2031 [id number] / / [id number] documented as of this encounter Care Teams Sawmill Production Worker Relationship Specialty Start Date End Date Alex Hopkins DO [address] [place] [address] PCP - General Family Medicine 12/30/19 documented as of this encounter
--- OUTSIDE RECORDS SUMMARY | 2024-02-26 08:21 | External Medical Summary ---
Author Name Unknown Address Unknown Organization [id number]:[facility] [place] [address] [place] [address] Laboratory Report Ordering Provider Test Date Status TARA CHANG 12/07/2023 07:06:49 Final Observation Date Value Abnormality Reference (Units ) Status TSH 12/07/2023 07:06:49 3.16 0.27-4.20 (uIU/mL) Final Performing Location LAB[facility] - [address] [place] [address]
--- OUTSIDE RECORDS SUMMARY | 2024-02-26 08:21 | External Medical Summary ---
Author Name Unknown Address Unknown Organization [id number] [address] [place] [address] Laboratory Report Ordering Provider Test Date Status TARA CHANG 12/07/2023 08:12:10 Final Observation Date Value Abnormality Reference (Units ) Status Glucose [Mass/volume] in Serum or Plasma --1 hour post dose glucose 12/07/2023 08:12:10 199 Above high normal 70-179 (mg/dL) Final Performing Location LABORATORY [place] [address] - [address] [place] [address]
--- OUTSIDE RECORDS SUMMARY | 2024-02-26 08:22 | External Medical Summary | Summary of Care ---
Author Name Unknown Organization [facility] Address [address] [place] [address] Phone [phone] Care Team Providers Care Salesperson Flying Squad Name Role Phone Alex Hopkins DO Primary Care Provider Reason for Visit * Reason Onset Date Comments Education 02/27/2023 Encounter Details Date Type Department Care Team (Late st Contact Info) Description 02/27/2023 Telephone Sandra Stewart [address] [facility] [place] [address] Maday Chavarria MD [address] [facility] [place] [address] Education Allergies Active Allergy Reactions Criticality Noted Date Comments Sulfa Antibiotics 08/15/2002 documented as of this encounter (statuses as of 10/09/2023) Medications Medication Sig Dispensed Refills Start Date End Date Status Syringe 22G X 1-1/2" 3 ML Inject into a large muscle. As directed with progesterone in oil 40 Each 3 3 Active Multivitamin Adult Oral Tablet Take by mouth . 0 08/09/20 23 Discontinu ed(Medicat ion List Clean Up) Estradiol 2 MG Oral Tablet (Estrace) Take 2 tablets by mouth daily at bedtime for 1 week, then increase to 3 tablets 90 Tablet 3 3 08/09/20 23 Discontinu ed(Medicat ion List Clean Up) Progesterone 200 MG Oral Capsule (Prometrium) Take 1 tablet vaginally 3 times daily 90 Capsule 3 3 08/09/20 23 Discontinu ed(Medicat ion List Clean Up) Levonorgestrel-Eth inyl Estrad 0.1-20 MG-MCG Oral Tablet (Aviane) Take 1 tablet by mouth daily 1 Each 1 3 04/24/20 23 Discontinu ed(Refill) Progesterone 50 MG/ML Intramuscular Oil 1ml or 50mg IM daily 40 mL 3 3 09/14/20 23 Discontinu ed(Medicat ion List Clean Up) Leuprolide Acetate 1 MG/0.2ML Injection Kit (Lupron) Inject 20 units subcutaneously daily 1 Kit 1 3 05/31/20 23 Discontinu ed(Refill) documented as of this encounter (statuses as of 10/09/2023) Active Problems Problem Noted Date Diagnosed Date [...] 09/02/2002 Overview: ICD-10 update of inactive term documented as of this encounter (statuses as of 10/09/2023) Resolved Problems Problem Noted Date Diagnosed Date Resolved Date High-risk 08/16/2023 08/21/20 IUD contraception 12/30/2019 08/15/2023 documented as of this encounter (statuses as of 10/09/2023) Immunizations Name Administration Dates Next Due DTP [...] 09/13/2016,08/20/2015,08/10/2014, 013 TDAP (age 10 and older)(Boostrix) 12/27/2018,05/2011 documented as of this encounter Social History [...] to get more. Never true 08/16/2023 [place] Depression Scale Answer Date Recorded [place] Depression Scale Total 2 08/16/2023 The thought of harming myself has occurred to me . Never 08/16/2023 Sex and Gender Information Value Date Recorded Sex Assigned at Female 01/04/2021 9:07 AM EST Gender Identity Female 01/04/2021 9:07 AM EST Sexual Orientation Straight 01/04/2021 9: 07 AM EST Job Start Date Occupation Industry Not on file Not on file Not on file documented as of this encounter Miscellaneous Notes * Telephone Encounter - Melissa Mccord RN - 02/27/2023 12:36 PM EDT Tc to pt through Facetime. Demonstrated drawing up medication from vial and expelling air. Demonstrated IM injection technique and proper sites for administration. Demonstrated subcutaneous injection technique and proper sites for administration. Intended parent Mendoza present and observed. Both verbalize understanding of instructions and information. documented in this encounter Plan of Treatment Upcoming Encounters Date Type Department Care Team (Late st Contact Info) Description 10/12/2023 8:30 AM EST Office Visit Gynecology/Obstetrics [facility] [address] [place] [address] TommyerJany CRNP [address] [place] [address] 03/04/2024 10:20 AM EDT Office Visit Otolaryngology [facility] [address] [place] [address] Mallory Murray PA-C [address] [place] [address] Health Maintenance Due Date Last Done Comments COVID-19 Vaccine (#1) 1991 Depression Screening 01/17/2024 01/16/2023 DTaP,Tdap,and Td Vaccines (8 - Td or Tdap) 12/27/2028 12/27/2018, 02/03/2011, 08/23/1995, Additional history exists Hepatitis B Completed 12/19/2012, [...] this encounter Medical Devices Implanted Type Area Car Rental Sales Assistant Device Identifier Shelf Expiration Date Model / Serial / Lot Tube Ventilation 4.8mmx1.32mm - [id number] Implanted:Qty: 1 on 09/19/2022 by Leonardo Castro DO at OR [facility] Left: Ear [employer] 02/08/2031 [id number] / / [id number] documented as of this encounter Care Teams Salesperson Flying Squad Relationship Specialty Start Date End Date Alex Hopkins DO [address] [place] [address] PCP - General Family Medicine 12/30/19 documented as of this encounter
--- OUTSIDE RECORDS SUMMARY | 2024-02-26 08:22 | External Medical Summary | Summary of Care ---
Author Name Unknown Organization [facility] Address [address] [place] [address] Phone [phone] Care Team Providers Care Wellness Program Administrator Name Role Phone Sandeep Alex Floriankirk Primary Care Provider Reason for Visit * Reason Comments Ultrasound Encounter Details Date Type Department Care Team (Latest Contact Info) Description 10/09/2023 8:30 AM EST Office Visit Corn Husk Baler Obstetrics Maternal Medicine, [place] [address] [place], [place] [phone] Mary Lomas [address] [place] [address] Obesity in , antepartum*; resulting from in vitro fertilization in second trimester; History of gestational diabetes mellitus (GDM); Encounter for anatomic survey; 19 weeks gestation of ; Other specified related conditions, second trimester Allergies Active Allergy Reactions Criticality Noted Date Comments Sulfa Antibiotics 08/15/2002 documented as of this encounter (statuses as of 10/09/2023) Medications Medication Sig Dispensed Refills Start Date End Date Status Syringe 22G X 1-1/2" 3 ML Inject into a large muscle. As directed with progesterone in oil 40 Each 3 02/09/2023 Active BD TB Syringe 27G X 1/2" 1 ML (Tuberculin Syringe) use as directed 10 Each 1 05/30/2023 Active 28-0.8 MG Oral Tablet Take by mouth. 0 Active B Complex Vitamins Oral Capsule Take 1 Capsule by mouth in the morning. 0 Active documented as of this encounter (statuses [...] money to get more. Never true 08/16/2023 [place] Depression Scale Answer Date Recorded [place] Depression Scale Total 2 08/16/2023 The thought [...] this encounter Progress Notes * Mary Lomas, - 10/09/2023 10:33 AM EST MATERNAL MEDICINE VISIT Viviana Miller presented today at 19w4d for an ultrasound and follow-up of her high risk . She was seen for the following indications: Problem List Items Addressed This Visit Digestive Obesity in , antepartum - Primary Other resulting from in vitro fertilization Low risk NIPT appreciated. We reviewed slightly increased risk for congenital anomalies, particularly cardiac, in IVF pregnancies as well as FGR. Etiology of these complications is unknown; perhaps related to underlying cause of the infertility vs. embryo cell culture. The risk is higher when ICSI is used. echo may notdetect small VSD (<2mm) but is effective in diagnosis of most cyanotic lesions and many other clinically relevant cardiac defects. Today's exam did not suggest any evidence of cardiac abnormality. Will follow for growth around 32 weeks. NSTs at 36 weeks; consider delivery by her EDC. Questions answered. History of gestational diabetes mellitus (GDM) Elevated 1'GTT with normal 3'GTT. Repeat 3'GTT needed in third trimester. Other Visit Diagnoses Encounter for anatomic survey 19 weeks gestation of We reviewed today's ultrasound findings. 19w4d for anatomical survey with echocardiogram. Normal growth with no ultrasonic evidence of structural or cardiac abnormalities. (For full details, please refer to ultrasound report provided separately). Ms. Miller's questions were answered to her satisfaction. She was advised to contact our office or her OB provider for any additional questions regarding her . RECOMMENDATIONS: Recommend follow up ultrasound with MFM in 12 weeks for growth secondary to above indications. Thank you for allowing us to participate in the care of this patient. Please call with any questions. Mary Lomas DO 10/09/2023 10:33 AM documented in this encounter Miscellaneous Notes * Assessment & Plan Note - Mary Lomas DO - 10/09/2023 8:24 AM EST Associated Problem(s): resulting from in vitro fertilization Low risk NIPT appreciated. We reviewed slightly increased risk for congenital anomalies, particularly cardiac, in IVF pregnancies as well as FGR. Etiology of these complications is unknown; perhaps related to underlying cause of the infertility vs. embryo cell culture. The risk is higher when ICSI is used. echo may notdetect small VSD (<2mm) but is effective in diagnosis of most cyanotic lesions and many other clinically relevant cardiac defects. Today's exam did not suggest any evidence of cardiac abnormality. Will follow for growth around 32 weeks. NSTs at 36 weeks; consider delivery by her EDC. Questions answered. * Assessment & Plan Note - Mary Lomas DO - 10/09/2023 8:24 AM EST Associated Problem(s): History of gestational diabetes mellitus (GDM) Elevated 1'GTT with normal 3'GTT. Repeat 3'GTT needed in third trimester. documented in this encounter Plan of Treatment Upcoming Encounters Date Type Department Care Team (Late st Contact Info) Description 10/12/2023 8:30 AM EST Office Visit Gynecology/Obstetrics [facility] [address] [place] [address] Jany Billings CRNP [address] [place] [address] 03/04/2024 10:20 AM EDT [facility] [address] [place] [address] Mallory Murray PA-C [address] [place] [address] Scheduled Orders Name Type Priority Associated Diagnoses Orde r Schedule MFM PREG FOLLOW UP EACH FETUS Medical Imaging Routine Obesity in , antepartum resulting from in vitro fertilization in second trimester History of gestational diabetes mellitus (GDM) Encounter for anatomic survey 19 weeks gestation of Other specified related conditions, second trimester 9 Occurrences starting 10/09/2023 until 04/09/2024 Health Maintenance Due Date Last Done Comments [...] this encounter Medical Devices Implanted Type Area Track Hoe Operator Device Identifier Shelf Expiration Date Model / Serial / Lot Tube Ventilation 4.8mmx1.32mm - [id number] Implanted:Qty: 1 on 09/19/2022 by Leonardo Castro DO at OR [facility] Left: Ear [employer] 02/08/2031 [id number] / / [id number] documented as of this encounter Visit Diagnoses Diagnosis Obesity in , antepartum- Primary Obesity complicating , childbirth, or the puerperium, antepartum condition or complication resulting from in vitro fertilization in second trimester History of gestational diabetes mellitus (GDM) Encounter for anatomic survey 19 weeks gestation of state, incidental Other specified related conditions, second trimester documented in this encounter Care Teams Wellness Program Administrator Relationship Specialty Start Date End Date Alex Hopkins DO [address] [place] [address] PCP - General Family Medicine 12/30/19 documented as of this encounter
--- OUTSIDE RECORDS SUMMARY | 2024-02-26 08:22 | External Medical Summary | Summary of Care ---
Author Name Unknown Organization [facility] Address [address] [place] [address] Phone [phone] Care Team Providers Care Quality System Manager Name Role Phone Sandeep Alex Floriankirk Primary Care Provider Reason for Visit * Reason Onset Date Comments Encounter Created in Error 10/09/2023 Encounter Details Date Type Department Care Team (Late st Contact Info) Description 10/09/2023 Telephone Fertility, [place] [address] [place] [address] [place], Nurse Fertility [address] [place], [place] [phone] Encounter Created in Error Allergies Active Allergy Reactions Criticality Noted Date [...] money to get more. Never true 08/16/2023 [place] Depression Scale Answer Date Recorded [place] Depression Scale Total 2 08/16/2023 The thought [...] 10/12/2023 8:30 AM EST Office Visit Gynecology/Obstetrics [facility] [address] [place] [address] Jany Billings CRNP [address] [place] [address] 03/04/2024 10:20 AM EDT Office Visit Otolaryngology [facility] [address] [place] [address] Mallory Murray PA-C [address] [place] [address] Health Maintenance Due Date Last Done Comments [...] this encounter Medical Devices Implanted Type Area Food Service Manager Device Identifier Shelf Expiration Date Model / Serial / Lot Tube Ventilation 4.8mmx1.32mm - [id number] Implanted:Qty: 1 on 09/19/2022 by Leonardo Castro DO at OR [facility] Left: Ear [employer] 02/08/2031 [id number] / / [id number] documented as of this encounter Care Teams Quality System Manager Relationship Specialty Start Date End Date Alex Hopkins DO [address] [place] [address] PCP - General Family Medicine 12/30/19 documented as of this encounter
--- OUTSIDE RECORDS SUMMARY | 2024-02-26 08:22 | External Medical Summary | Summary of Care ---
Author Name Unknown Organization [facility] Address [address] [place] [address] Phone [phone] Care Team Providers Care Licensed Optician Name Role Phone Sandeep Alex Floriankirk Primary Care Provider Reason for Visit * Reason Onset Date Comments Referral 08/16/2023 Encounter Details Date Type Department Care Team (Late st Contact Info) Description 08/16/2023 Telephone Wirer Helper Obstetrics Maternal Medicine, [place] [address] [place], [place] [phone] [place], Nurse Wirer Helper [facility] [address] [place], [place] [phone] Referral Allergies Active Allergy Reactions Criticality Noted Date Comments Sulfa Antibiotics 08/15/2002 documented as of this encounter (statuses as of 11/15/2023) Medications Medication Sig Dispensed Refills Start Date End Date Status 28-0.8 MG Oral Tablet Take by mouth. 0 Active B Complex Vitamins Oral Capsule Take 1 Capsule by mouth in the morning. 0 Active documented as of this encounter (statuses as of 11/15/2023) Active Problems Problem Noted Date Diagnosed Date [...] as of this encounter (statuses as of 11/15/2023) Resolved Problems Problem Noted Date Diagnosed Date Resolved Date High-risk 08/16/2023 08/21/20 23 IUD contraception 12/30/2019 08/15/2023 documented as of this encounter (statuses as of 11/15/2023) Immunizations Name Administration Dates Next Due DTP [...] money to get more. Never true 08/16/2023 [place] Depression Scale Answer Date Recorded [place] Depression Scale Total 2 08/16/2023 The thought [...] encounter Miscellaneous Notes * Telephone Encounter - Magui Holden OSA - 08/16/2023 2:43 PM EDT Appointments scheduled * Telephone Encounter - Lubna Castillo MED ASSIST - 08/16/2023 2:10 PM EDT Estimated Date of Delivery: 02/29/24 Please schedule for 45 MINUTE CONSULT SIMPLE MEDICAL WITH FACILITIES COORDINATOR, in time frame of next available or atpatient's earliest convenience at location [facility] with the indication of IVF . Please schedule limited anatomy between 55l8a-39s8r weeks (now-08/30/23) Please schedule anatomy between 19-21 weeks (10/04/23-10/18/23). Referring Provider: KATIE Domingo documented in this encounter Plan of Treatment Upcoming Encounters Date Type Department Care Team (Late st Contact Info) Description 12/07/2023 7:00 AM EST Laboratory [facility], [facility] [place] [phone] [facility] [place] [address] 12/07/2023 8:30 AM EST Office Visit Gynecology/Obstetrics [facility] [address] [facility] [place] [address] Magdalena Patel CRNP [address] [place] [address] 01/03/2024 9:30 AM EST Office Visit Wirer Helper Obstetrics Maternal Medicine, [facility] [address] [place] [address] Mary Lomas, DO [address] [place] [address] 01/03/2024 9:30 AM EST Imaging Maternal Medicine Imaging, [facility] [address] [place] [phone] 03/04/2024 10:20 AM EDT Office Visit Otolaryngology [facility] [address] [place] [address] Mallory Murray PA-C [address] [place] [address] Health Maintenance Due Date Last Done Comments [...] this encounter Medical Devices Implanted Type Area Blast Furnace Supervisor Device Identifier Shelf Expiration Date Model / Serial / Lot Tube Ventilation 4.8mmx1.32mm - [id number] Implanted:Qty: 1 on 09/19/2022 by Leonardo Castro DO at OR [facility] Left: Ear [employer] 02/08/2031 [id number] / / [id number] documented as of this encounter Care Teams Licensed Optician Relationship Specialty Start Date End Date Alex Hopkins DO [address] [place] [address] PCP - General Family Medicine 12/30/19 documented as of this encounter
--- OUTSIDE RECORDS SUMMARY | 2024-02-26 08:22 | External Medical Summary | Summary of Care ---
Author Name Unknown Organization [facility] Address [address] [place] [address] Phone [phone] Care Team Providers Care Blender Helper Name Role Phone Alex Hopkins DO Primary Care Provider Encounter Details Date Type Department Care Team (Late st Contact Info) Description 03/20/2023 Telephone Sandra Stewart [address] [facility] [place] [phone] Maday Chavarria MD [address] [facility] [place] [address] Allergies Active Allergy Reactions Criticality Noted Date Comments Sulfa Antibiotics 08/15/2002 documented as of this encounter (statuses as of 10/09/2023) Medications Medication Sig Dispensed Refills Start Date End Date Status Syringe 22G X 1-1/2" 3 ML Inject into a large muscle. As directed with progesterone in oil 40 Each 3 3 Active Multivitamin Adult Oral Tablet Take by mouth . 0 08/09/20 Discontinu ed(Medicat ion List Clean Up) Estradiol 2 MG Oral Tablet (Estrace) Take 2 tablets by mouth daily at bedtime for 1 week, then increase to 3 tablets 90 Tablet 3 3 08/09/20 Discontinu ed(Medicat ion List Clean Up) Progesterone 200 MG Oral Capsule (Prometrium) Take 1 tablet vaginally 3 times daily 90 Capsule 3 3 08/09/20 Discontinu ed(Medicat ion List Clean Up) Levonorgestrel-Eth [...] money to get more. Never true 08/16/2023 [place] Depression Scale Answer Date Recorded [place] Depression Scale Total 2 08/16/2023 The thought [...] encounter Miscellaneous Notes * Telephone Encounter - Maday Chavarria MD - 03/20/2023 9:36 AM EDT Discussed empiric use of augmentin twice daily to start 2 days before transfer Discussed need for probiotic as well. Plan for augmentin with transfer documented in this encounter Plan of Treatment Upcoming Encounters Date Type Department Care Team (Late st Contact Info) Description 10/12/2023 8:30 AM EST Office Visit Gynecology/Obstetrics [facility] [address] [place] [phone] Jany Billings CRNP [address] [place] [address] 03/04/2024 10:20 AM EDT Office Visit Otolaryngology [facility] [address] [place] [address] Mallory Murray PA-C [address] [place] [address] Health Maintenance Due Date Last Done Comments [...] this encounter Medical Devices Implanted Type Area Embossing Toolsetter Device Identifier Shelf Expiration Date Model / Serial / Lot Tube Ventilation 4.8mmx1.32mm - [id number] Implanted:Qty: 1 on 09/19/2022 by Leonardo Castro DO at OR [facility] Left: Ear EditGrid [facility] 02/08/2031 [id number] / / [id number] documented as of this encounter Care Teams Blender Helper Relationship Specialty Start Date End Date Alex Hopkins DO [address] [place] [address] PCP - General Family Medicine 12/30/19 documented as of this encounter
--- OUTSIDE RECORDS SUMMARY | 2024-02-26 08:22 | External Medical Summary | Summary of Care ---
Author Name Unknown Organization [facility] Address [address] [place] [address] Phone [phone] Care Team Providers Care Box Gluer Name Role Phone Sandeep Alex Floriankirk Primary Care Provider Reason for Visit * Reason Comments Procedure FET Encounter Details Date Type Department Care Team (Late st Contact Info) Description 12/08/2022 10:30 AM EST Office Visit Fertility, [facility] [address] [place] [address] Maday Chavarria MD [address] [place] [address] [facility] [address] [place] [address] [facility] [address] [place] [address] [facility] [address] [place] [address] Procreative management* Allergies Active Allergy Reactions Criticality Noted Date Comments Sulfa Antibiotics 08/15/2002 documented as of this encounter (statuses as of 10/09/2023) Medications Medication Sig Dispensed Refills Start Date End Date Status Multivitamin Adult Oral Tablet Take by mouth . 0 08/09/2023 Di scontinue d(Medicatio n List Clean Up) Amoxicillin-Pot Clavulanate 875-125 MG Oral Tablet Take 1 Tablet by mouth in the morning and 1 Tablet before bedtime. 20 Tablet 0 10/26/2022 12/08/2022 Discontinue d(Medicatio n List Clean Up) predniSONE 10 MG Oral Tablet (Deltasone) Take 4 tab daily x 3 days, then 3 tab daily x 3 days, 2 tab daily x 3 days, then 1 tab daily x 3 days. 30 Tablet 0 10/26/2022 01/16/2023 Discontinue d(Medicatio n List Clean Up) Benzonatate 100 MG Oral Capsule (Tessalon Perles) Take 1 Capsule by mouth 3 times a day as needed for Cough. if cough persists. 30 Capsule 2 10/26/2022 12/08/2022 Discontinue d(Medicatio n List Clean Up) Estradiol 2 MG Oral Tablet (Estrace) Take 2 tablets by mouth daily at bedtime for 1 week, then increase to 3 tablets 90 Tablet 3 10/31/2022 08/09/2023 Discontinue d(Medicatio n List Clean Up) Progesterone 200 MG Oral Capsule (Prometrium) Take 1 tablet vaginally 3 times daily 90 Capsule 3 10/31/2022 08/09/2023 Discontinue d(Medicatio n List Clean Up) Hospital, Clinic, or Other Facility Administered Medication Ordered Dose Route Frequency Start Date End Date Status diazePAM (Valium) tab 10 mgIndications:Female infertility 10 mg OR ONCE 12/08/2022 12/08/2022 Ended documented as of this encounter (statuses as [...] Date Smoking Tobacco: Never Smokeless Tobacco: Never Tobacco Cessation:Counseling Given: Not Answered Alcohol Use Standard Drinks/Week Comments No 0 [...] money to get more. Never true 08/16/2023 [place] Depression Scale Answer Date Recorded [place] Depression Scale Total 2 08/16/2023 The thought [...] Sign Reading Time Taken Comments Blood Pressure 120/76 12/08/2022 10:31 AM EST Pulse 81 12/08/2022 10:31 AM EST Temperature 36.6 C (97.9 F) 12/08/2022 10:[address] Respiratory Rate 16 12/08/2022 10:31 AM EST Oxygen Saturation 98% 12/08/2022 10:31 AM EST Inhaled Oxygen Concentration - - Weight 69.9 kg (154 lb) 12/08/2022 10:31 AM EST Height 154.9 cm (5' 1") 12/08/2022 10:31 AM EST Body Mass Index 29.1 12/08/2022 10:31 AM EST documented in this encounter Patient Instructions * Patient Instructions* Petra Reyes RN - 12/07/2022 2:28 PM EST Patient instructed to rest and relax today No heavy lifting or jumping or jarring exercises. Avoid overheating. Nothing in the vagina/no intercourse for 2 weeks. (wait until your test results) May eat and drink normally. Stay adequately hydrated. Avoid constipation. Patient to drink 8-10 glasses of water to decrease constipation Add bran and fiber to diet No smoking/no second hand smoke No alcohol Treat yourself as if you are . Follow advise for activities and medications as a would. Avoid activities that could potentially cause a fall or inury. No hot tubs/saunas/scuba diving Wear your seatbelt. Continue all medications as directed. If you are taking vitamins, continue. Clear all other medications with your provider. Patient to call with any questions or concerns For Dr. Chavarria's Office [phone] Date of test: 12/18/22 documented in this encounter Progress Notes * Maday Chavarria MD - 12/08/2022 10:41 AM EST A ''time out'' was initiated by Dr Chavarria at 1055 prior to procedure.The patient was identified by name and date of . The correct procedure, and correct site identified. Correct positioning (as applicable). There is availability of necessary equipment. Patient states she is not allergic to latex. Embryo transfer performed without difficulty with Roxy catheter under ultrasound guidance. The uterus and endometrial cavity were visualized and no abnormalities were found. 1 embryos placed 10 mm from fundus: 1 fully reexpanded hatching NR blast for Mendoza Craig Patient tolerated procedure without difficulty. (Z31.9) Procreative management (primary encounter diagnosis) Plan: Continue estrace/prometrium 12/18/22 hcg level Maday Chavarria M.D. documented in this encounter Nursing Notes * Alejandra Platt, RN - 12/08/2022 10:33 AM EST Pt presents to clinic for FET with Dr Chavarria. documented in this encounter Plan of Treatment Upcoming Encounters Date Type Department Care Team (Late st Contact Info) Description 10/12/2023 8:30 AM EST Office Visit Gynecology/Obstetrics [facility] [address] [place] [address] Jany Billings CRNP [address] [place] [address] 03/04/2024 10:20 AM EDT Office Visit Otolaryngology [facility] [address] [place] [address] Mallory Murray PA-C [address] [place] [address] Health Maintenance Due Date Last Done Comments [...] this encounter Medical Devices Implanted Type Area Planning Division Superintendent Device Identifier Shelf Expiration Date Model / Serial / Lot Tube Ventilation 4.8mmx1.32mm - [id number] Implanted:Qty: 1 on 09/19/2022 by Leonardo Castro DO at OR [facility] Left: Ear vushaper [facility] 02/08/2031 [id number] / / [id number] documented as of this encounter Visit Diagnoses Diagnosis Procreative management- Primary Unspecified procreative management documented in this encounter Administered Medications Inactive Administered Medications - up to 3 most recent administrations Medication Order MAR Action Action Date Dose Rate Site diazePAM (Valium) tab 10 mg 10 mg, Oral, ONCE, On Sun12/08/22 at 0700, For 1 dose Given 12/08/2022 10:35 AM EST 10 mg documented in this encounter Care Teams Box Gluer Relationship Specialty Start Date End Date Alex Hopkins DO [address] [place] [address] PCP - General Family Medicine 12/30/19 documented as of this encounter
--- OUTSIDE RECORDS SUMMARY | 2024-02-26 08:22 | External Medical Summary | Summary of Care ---
Author Name Unknown Organization [facility] Address [address] [facility] [address] Phone [phone] Care Team Providers Care Snuff Grinder And Screener Name Role Phone Alex Hopkins DO Primary Care Provider Reason for Visit * Reason Comments Return Visit Encounter Details Date Type Department Care Team (Late st Contact Info) Description 10/12/2023 8:30 AM EST Office Visit Gynecology/Obstetri [facility] [address] [place] [address] Jany Billings CRNP [address] [place] [address] Supervision of high risk in second trimester*; resulting from in vitro fertilization in second trimester; History of gestational diabetes mellitus (GDM); History of section complicating ; Obesity in , antepartum; Surrogate ; Breast feeding status of mother Allergies Active Allergy Reactions Criticality Noted Date Comments Sulfa Antibiotics 08/15/2002 documented as of this encounter (statuses as of 10/12/2023) Medications Medication Sig Dispensed Refills Start Date End Date Status 28-0.8 MG Oral Tablet Take by mouth. 0 Active B Complex Vitamins Oral Capsule Take 1 Capsule by mouth in the morning. 0 Active Breast PumpIndications: Breast feeding status of mother Estimated Date of Delivery: 02/29/24, Z39.1, double electric breast pump 1 Each 0 10/12/2023 Active Syringe 22G X 1-1/2" 3 ML Inject into a large muscle. As directed with progesterone in oil 40 Each 3 02/09/2023 10/12/2023 Discontinued (Medication List Clean Up) BD TB Syringe 27G X 1/2" 1 ML (Tuberculin Syringe) use as directed 10 Each 1 05/30/2023 10/12/2023 Discontinued (Medication List Clean Up) documented as of this encounter (statuses as of 10/12/2023) Active Problems Problem Noted Date Diagnosed Date [...] as of this encounter (statuses as of 10/12/2023) Resolved Problems Problem Noted Date Diagnosed Date Resolved Date High-risk 08/16/2023 08/21/20 IUD contraception 12/30/2019 08/15/2023 documented as of this encounter (statuses as of 10/12/2023) Immunizations Name Administration Dates Next Due DTP [...] money to get more. Never true 08/16/2023 [place] Depression Scale Answer Date Recorded [place] Depression Scale Total 2 08/16/2023 The thought [...] Sign Reading Time Taken Comments Blood Pressure 118/62 10/12/2023 8:26 AM EST Pulse - - Temperature - - Respiratory Rate - - Oxygen Saturation - - Inhaled Oxygen Concentration - - Weight 73.5 kg (162 lb) 10/12/2023 8:26 AM EST Height - - Body Mass Index 31.64 09/14/2023 8:42 AM EST documented in this encounter Progress Notes * Natasha Moore LPN - 10/12/2023 8:26 AM EST 20w0d Denies vaginal bleeding/rom + movement Declines MSAFP No new concerns * Jany Billings CRNP - 10/12/2023 8:25 AM EST 20w0d Doing well w/o concerns. + movement. Denies leaking, bleeding, cramping. Completed anatomy ultrasound with MFM; they plan to follow for a growth u/s around 32 weeks. Declines MSAFP. Will schedule a future appt w/MD to discuss C/S. Breast pump rx given to Narda. 4 week return KATIE Hernandez documented in this encounter Plan of Treatment Upcoming Encounters Date Type Department Care Team (Late st Contact Info) Description 11/09/2023 8:30 AM EST Office Visit Gynecology/Obstetrics [facility] [address] [place] [address] Magdalena Patel CRNP [address] [place] [address] 01/03/2024 9:30 AM EST Office Visit Historical Records Administrator Obstetrics Maternal Medicine, [facility] [address] [place] [address] Mary Lomas, DO [address] [place] [address] 01/03/2024 9:30 AM EST Imaging Maternal Medicine Imaging, [facility] [place] [phone] 03/04/2024 10:20 AM EDT Office Visit Otolaryngology [facility] [address] [place] [address] Mallory Murray PA-C [address] [place] [address] Health Maintenance Due Date Last Done Comments [...] this encounter Medical Devices Implanted Type Area Short Order Fry Cook Device Identifier Shelf Expiration Date Model / Serial / Lot Tube Ventilation 4.8mmx1.32mm - [id number] Implanted:Qty: 1 on 09/19/2022 by Leonardo Castro DO at OR [facility] Left: Ear StartDate Labs [facility] 02/08/2031 [id number] / / [id number] documented as of this encounter Visit Diagnoses Diagnosis Supervision of high risk in second trimester- Primary Unspecified high-risk resulting from in vitro fertilization in second trimester History of gestational diabetes mellitus (GDM) History of section complicating Previous delivery, unspecified as to episode of care or not applicable Obesity in , antepartum Obesity complicating , childbirth, or the puerperium, antepartum condition or complication Surrogate state, incidental Breast feeding status of mother care and examination of lactating mother documented in this encounter Care Teams Snuff Grinder And Screener Relationship Specialty Start Date End Date Alex Hopkins DO [address] [place] [address] PCP - General Family Medicine 12/30/19 documented as of this encounter
--- OUTSIDE RECORDS SUMMARY | 2024-02-26 08:22 | External Medical Summary | Summary of Care ---
Author Name Unknown Organization [facility] Address [address] [facility] [address] Phone [phone] Care Team Providers Care Manufacturer Name Role Phone Alex Hopkins DO Primary Care Provider Reason for Visit * Reason Comments Return Visit Encounter Details Date Type Department Care Team (Latest Contact Info) Description 11/09/2023 8:30 AM EST Office Visit Gynecology/Obstetric s [facility] [address] [place] [address] Magdalena Patel CRNP [address] [place] [address] resulting from in vitro fertilization in second trimester*; Supervision of high risk in second trimester; History of gestational diabetes mellitus (GDM); History of section complicating ; Obesity in , antepartum; Surrogate Allergies Active Allergy Reactions Criticality Noted Date Comments Sulfa Antibiotics 08/15/2002 documented as of this encounter (statuses as of 11/09/2023) Medications Medication Sig Dispensed Refills Start Date [...] as of this encounter (statuses as of 11/09/2023) Active Problems Problem Noted Date Diagnosed Date [...] as of this encounter (statuses as of 11/09/2023) Resolved Problems Problem Noted Date Diagnosed Date Resolved Date High-risk 08/16/2023 08/21/20 IUD contraception 12/30/2019 08/15/2023 documented as of this encounter (statuses as of 11/09/2023) Immunizations Name Administration Dates Next Due DTP [...] money to get more. Never true 08/16/2023 [place] Depression Scale Answer Date Recorded [place] Depression Scale Total 2 08/16/2023 The [...] Sign Reading Time Taken Comments Blood Pressure 114/60 11/09/2023 8:37 AM EST Pulse - - Temperature - - Respiratory Rate - - Oxygen Saturation - - Inhaled Oxygen Concentration - - Weight 73.9 kg (163 lb) 11/09/2023 8:37 AM EST Height 152.4 cm (5') 11/09/2023 8:37 AM EST Body Mass Index 31.83 11/09/2023 8:37 AM EST documented in this encounter Progress Notes * Magdalena Patel CRNP - 11/09/2023 8:55 AM EST 24w No concerns. Baby is active. No bleeding or LOF. 3hr GTT with next visit. Has upcoming MFM appt. KATIE Arauz documented in this encounter Plan of Treatment Upcoming Encounters Date Type Department Care Team (Late st Contact Info) Description 12/07/2023 7:00 AM EST Laboratory Laboratory, [facility] [address] [place] [phone] [facility] [address] [facility] [place] [address] 12/07/2023 8:30 AM EST [facility] Jennifer Andradegail [place] [address] Magdalena Patel CRNP [address] [place] [address] 01/03/2024 9:30 AM EST Office Visit Ammunition Specialist Obstetrics Maternal Medicine, [facility] [address] [facility] [place] [address] Mary Lomas Obregoni, DO [address] [place] [address] 01/03/2024 9:30 AM EST Imaging Maternal Medicine Imaging, [facility] [address] [facility] [place] [phone] 03/04/2024 10:20 AM EDT Office Visit Otolaryngology [facility] [address] [address] [place] [address] Mallory Murray PA-C [address] [place] [address] Scheduled Orders Name Type Priority Associated Diagnoses Orde r Schedule CBC WITH WBC DIFFERENTIAL AND ANEMIA REFLEX WORKUP Lab Routine Supervision of high risk in second trimester Expected: 11/23/2023 (Approximate), Expires: 11/09/2024 SYPHILIS ANTIBODY SCREEN WITH REFLEX TO RPR Lab Routine Supervision of high risk in second trimester Expected: 11/23/2023 (Approximate), Expires: 11/09/2024 GESTATIONAL GLUCOSE TOLERANCE, 3 HOUR Lab Routine Supervision of high risk in second trimester Expected: 11/23/2023 (Approximate), Expires: 11/09/2024 Health Maintenance Due Date Last Done Comments [...] this encounter Medical Devices Implanted Type Area Extrusion Die Repairer Device Identifier Shelf Expiration Date Model / Serial / Lot Tube Ventilation 4.8mmx1.32mm - [id number] Implanted:Qty: 1 on 09/19/2022 by Leonardo Castro DO at OR [facility] Left: Ear Swapferit [facility] 02/08/2031 [id number] / / [id number] documented as of this encounter Visit Diagnoses Diagnosis resulting from in vitro fertilization in second trimester- Primary Supervision of high risk in second trimester Unspecified high-risk History of gestational diabetes mellitus (GDM) History of section complicating Previous delivery, unspecified as to episode of care or not applicable Obesity in , antepartum Obesity complicating , childbirth, or the puerperium, antepartum condition or complication Surrogate state, incidental documented in this encounter Care Teams Manufacturer Relationship Specialty Start Date End Date Alex Hopkins DO [address] [place] [address] PCP - General Family Medicine 12/30/19 documented as of this encounter
--- OUTSIDE RECORDS SUMMARY | 2024-02-26 08:22 | External Medical Summary | Summary of Care ---
Author Name Unknown Organization [facility] Address [address] [place] [address] Phone [phone] Care Team Providers Care Drug Enforcement Administration Agent Name Role Phone Alex Hopkins DO Primary Care Provider Reason for Visit * Reason Comments Procedure FET Encounter Details Date Type Department Care Team (Late st Contact Info) Description 06/13/2023 9:30 AM EDT Office Visit Fertility, [place] [address] [place] [address] Maday Chavarria MD [address] [place] [address] [facility], Nurse Fertility [address] [place] [address] [facility], Andrology Lab [address] [place] [address] Steff, [facility] [address] [place] [address] Procreative management*; Threatened in early Allergies Active Allergy Reactions Criticality Noted Date Comments Sulfa Antibiotics 08/15/2002 documented as of this encounter (statuses as of 10/09/2023) Medications Medication Sig Dispensed Refills Start Date End Date Status Syringe 22G X 1-1/2" 3 ML Inject into a large muscle. As directed with progesterone in oil 40 Each 3 04/14/202 3 Active BD TB Syringe 27G X 1/2" 1 ML (Tuberculin Syringe) use as directed 10 Each 1 3 Active Multivitamin Adult Oral Tablet Take [...] Discontinu ed(Medicat ion List Clean Up) Progesterone 50 MG/ML Intramuscular Oil 1ml or 50mg IM daily 40 mL 3 3 09/14/20 Discontinu ed(Medicat ion List Clean Up) Levonorgestrel-Eth inyl Estrad 0.1-20 MG-MCG Oral Tablet (Aviane) Take 1 tablet by mouth daily 28 Tablet 1 3 08/09/20 Discontinu ed(Medicat ion List Clean Up) Leuprolide Acetate 1 MG/0.2ML Injection Kit (Lupron) Inject 20 units subcutaneously daily 1 Kit 1 3 08/09/20 Discontinu ed(Medicat ion List Clean Up) Hospital, Clinic, or Other Facility Administered Medication Ordered Dose Route Frequency Start Date End Date Status diazePAM (Valium) tab 10 mgIndications:Procreative management 10 mg OR ONCE 06/13/2023 06/13/2023 Ended documented as of this encounter (statuses [...] money to get more. Never true 08/16/2023 [place] Depression Scale Answer Date Recorded [place] Depression Scale Total 2 08/16/2023 The thought [...] Sign Reading Time Taken Comments Blood Pressure 106/70 06/13/2023 9:51 AM EDT Pulse 65 06/13/2023 9:51 AM EDT Temperature 36.7 C (98.1 F) 06/13/2023 9:51 AM ED T Respiratory Rate 16 06/13/2023 9:51 AM EDT Oxygen Saturation 98% 06/13/2023 9:51 AM EDT Inhaled Oxygen Concentration - - Weight 70.4 kg (155 lb 3.2 oz) 06/13/2023 9:51 A M EDT Height 152.4 cm (5') 06/13/2023 9:51 AM EDT Body Mass Index 30.31 06/13/2023 9:51 AM EDT documented in this encounter Progress Notes * Maday Chavarria MD - 06/13/2023 9:48 AM EDT A ''time out'' was initiated by Dr Chavarria at 0958 prior to procedure.The patient was identified by [...] embryos placed 10 mm from fundus: 1 donor egg fresh untested parminder/Mendoza Hendrickstson Patient tolerated procedure without difficulty. (Z31.9) Procreative management (primary encounter diagnosis) Plan: Continue estrace/prometrium 06/25/2023 hcg level Maday Chavarria M.D. * Cherrie Ramires RN - 06/13/2023 9:30 AM EDT Patient instructed to rest and relax today [...] questions or concerns For Dr. Chavarria's Office [phone] Date of test: 06/25/23 (bloodwork) documented in this encounter Nursing Notes * Jaylin Dhaliwal RDMS - 06/13/2023 2:21 PM EDT Patient was here for a transabdominal pelvic U/S for guidance of a FET performed by Jaylin Dhaliwal RDMS documented in this encounter Plan of Treatment Upcoming Encounters Date Type Department Care Team (Late st Contact Info) Description 10/12/2023 8:30 AM EST Office Visit Gynecology/Obstetrics [facility] [address] [place] [address] Jany Billings CRNP [address] [place] [address] 03/04/2024 10:20 AM EDT Office Visit Otolaryngology [facility] [address] [place] [address] Mallory Murray PA-C [address] [place] [address] Health Maintenance Due Date Last Done Comments [...] this encounter Medical Devices Implanted Type Area E Commerce Strategist Device Identifier Shelf Expiration Date Model / Serial / Lot Tube Ventilation 4.8mmx1.32mm - [id number] Implanted:Qty: 1 on 09/19/2022 by Leonardo Castro DO at OR [facility] Left: Ear [employer] [facility] 02/08/2031 [id number] / / [id number] documented as of this encounter Results * (ABNORMAL) BETA-HCG, QUANTITATIVE (06/25/2023 7:20 AM EDT) Beta-HCG, Quantitative 568.0(H) <=1.0 mIU/mL 06/25/2023 3:25 PM EDT [facility] Blood Venous blood specimen / Unknown Venipuncture / Unknown 06/25/2023 7:20 AM EDT 06/25/2023 7:20 AM EDT Narrative [facility] - 06/25/2023 3:25 PM EDT hCG can serve as a screening assay for . However, early may not give a positive hCG test result. In addition, some non- women may have a hCG result slightly higher than the reference limit. Careful interpretation of the hCG with clinical history is required to determine whether the patient may be . Maday Chavarria MD LAB BLOOD ORDERABLE S [facility] [address] [place] [address] documented in this encounter Visit Diagnoses Diagnosis Procreative management- Primary Unspecified procreative management Threatened in early Threatened , unspecified as to episode of care documented in this encounter Administered Medications Inactive Administered Medications - up to 3 most recent administrations Medication Order MAR Action Action Date Dose Rate Site diazePAM (Valium) tab 10 mg 10 mg, Oral, ONCE, On Sun06/13/23 at 0800, For 1 dose Given 06/13/2023 9:35 AM EDT 10 mg documented in this encounter Care Teams Drug Enforcement Administration Agent Relationship Specialty Start Date End Date Alex Hopkins DO [address] [place] [address] PCP - General Family Medicine 12/30/19 documented as of this encounter
--- OUTSIDE RECORDS SUMMARY | 2024-02-26 08:23 | External Medical Summary | Summary of Care ---
Author Name Unknown Organization [facility] [address] [facility] [address] Phone [phone] Care Team Providers Care Customer Service Attendant Name Role Phone Alex Hopkins DO Primary Care Provider Reason for Visit * Reason Comments Return Visit Encounter Details Date Type Department Care Team (Late st Contact Info) Description 09/14/2023 8:30 AM EST Office Visit Gynecology/Obstetri [facility] [address] [place] [address] Jany Billings CRNP [address] [place] [address] Supervision of high risk in second trimester*; resulting from in vitro fertilization in second trimester; History of gestational diabetes mellitus (GDM); History of section complicating ; Obesity in , antepartum; Surrogate Allergies Active Allergy Reactions Criticality Noted Date Comments Sulfa Antibiotics 08/15/2002 documented as of this encounter (statuses as of 09/14/2023) Medications Medication Sig Dispensed Refills Start Date [...] by mouth in the morning. 0 Active Progesterone 50 MG/ML Intramuscular Oil 1ml or 50mg IM daily 40 mL 3 02/09/2023 3 Discontinue d(Medicatio n List Clean Up) documented as of this encounter (statuses as of 09/14/2023) Active Problems Problem Noted Date Diagnosed Date [...] delivery at 39 weeks. , supervision, high-risk 08/16/2023 Overview: IVF Surrogate [...] 12/30/2019 10:44 AM Last Assessment & Plan: Reviewed with patient that women who have a history of GDM in a previous may have up to a 75% risk for GDM in subsequent pregnancies. Recommend obtaining early one hour Glucola screen and repeat again at 26-28 weeks if early screen is normal. History of section complicating pregnan cy 08/16/2023 [...] as of this encounter (statuses as of 09/14/2023) Resolved Problems Problem Noted Date Diagnosed Date Resolved Date High-risk 08/16/2023 08/21/20 23 IUD contraception 12/30/2019 08/15/2023 documented as of this encounter (statuses as of 09/14/2023) Immunizations Name Administration Dates Next Due DTP Vaccine 08/23/1995, 2,1991, 991,1991 DTaP HIB - Dipth/Tet/Acell Pert/HIB 07/06/1992,1991,1991, 991 Hepatitis B Vaccine 12/19/2012,07/16/2012,2011 Hepatitis B, 0-19 yrs 12/16/1993,07/22/1993,05/30 Hepatitis B, 20+ yrs 12/19/2012,07/16/2012,06/11 MMR - Measles/Mumps/Rubella Vaccine 08/23/1995,0 05/06/1992 OPV - Polio Virus Vaccine (Oral) 05/06/1992,05/29,1991 SEASONAL INFLUENZA, PF, 6 M & Above, IM , (FLULAVAL or FLUZONE) 08/16/2023 Seasonal Influenza, Split, I IV3, No [...] money to get more. Never true 08/16/2023 [place] Depression Scale Answer Date Recorded [place] Depression Scale Total 2 08/16/2023 The [...] Sign Reading Time Taken Comments Blood Pressure 108/60 09/14/2023 8:42 AM EST Pulse - - Temperature - - Respiratory Rate - - Oxygen Saturation - - Inhaled Oxygen Concentration - - Weight 71.7 kg (158 lb) 09/14/2023 8:42 AM EST Height 152.4 cm (5') 09/14/2023 8:42 AM EST Body Mass Index 30.86 09/14/2023 8:42 AM EST documented in this encounter Patient Instructions * Patient Instructions* Jany Billings CRNP - 09/14/2023 8:43 AM EST To prevent migraines, take daily (wrki-[id number]): - 400 mg magnesium - 200 mg Co-Q-10 - 400 mg riboflavin (vitamin B2) documented in this encounter Progress Notes * Jany Billings CRNP - 09/14/2023 8:43 AM EST 16w0d + movement. No bleeding or cramping, nausea is mostly better. Met w/MFM, has anatomy scan scheduled there. Low risk NIPT appreciated. HAs 2-3x/week, no vision changes. Not always relieved with Tylenol, rest. Feels she is adequately hydrated, 1 cup of coffee per day. Discussed OTC supplements she can take daily to prevent. Undecided on MSAFP, will talk to bio parents. Reviewed role in screening for open neural tube defects and timing of testing. 4 week return KATIE Hernandez * Ann Park LPN - 09/14/2023 8:39 AM EST 16w0d Having increase in KHAN's 2-3 times a week Denies any vision changes Takes tylenol and rest doesn't seem to help Unsure of msafp documented in this encounter Plan of Treatment Upcoming Encounters Date Type Department Care Team (Late st Contact Info) Description 10/09/2023 8:30 AM EST Office Visit Track Service Person Obstetrics [facility] [place] [address] [place] [address] Mary Lomas, [address] [place] [address] 10/09/2023 8:30 AM EST Imaging Radiology [facility] [place] [address] [place] [address] 10/12/2023 8:30 AM EST Office Visit Gynecology/Obstetrics [facility] [address] [place] [address] Jany Billings CRNP [address] [place] [address] 03/04/2024 10:20 AM EDT Office Visit Otolaryngology [facility] [address] [place] [address] Mallory Murray PA-C [address] [place] [address] Health Maintenance Due Date Last Done Comments [...] this encounter Medical Devices Implanted Type Area Kiln Operator Device Identifier Shelf Expiration Date Model / Serial / Lot Tube Ventilation 4.8mmx1.32mm - [id number] Implanted:Qty: 1 on 09/19/2022 by Leonardo Castro DO at OR [facility] Left: Ear [employer] [facility] 02/08/2031 [id number] / / [id number] documented as of this encounter Visit Diagnoses [...] incidental documented in this encounter Care Teams Customer Service Attendant Relationship Specialty Start Date End Date Alex Hopkins DO [address] [place] [address] PCP - General Family Medicine 12/30/19 documented as of this encounter
[2024-02-26] MEDS ORDERED: MoRPHine SULFATE PF 1 MG/ML 10 ML AMP/VIAL ONE (09:05)
--- NOTE | 2024-02-26 09:16 | History & Physical Report ---
Date of Service February 26, 2024 Assessment & Plan (1) S/P repeat low transverse : Plan: repeat planned Admission and Anticipated Discharge Date Admission Date: February 26, 2024 History of Present Illness Chief Complaint: repeat scheduled Primary Care Provider: Alex Hopkins DO 34 F P2002 at 39.4 weeks here for a planned elective repeat section. Allergies Allergy/AdvReac Type Severity Reaction Status Date / Time chlorhexidine Allergy Mild RASH Verified 02/13/24 07:58 Sulfa (Sulfonamide Allergy Mild Rash Verified 02/13/24 07:58 Antibiotics) Home Medications Medication Instructions Recorded Confirmed Type cyanocobalamin (vitamin B-12) 1 tab PO QAM 02/13/24 02/13/24 History prenat.vits,bernard,vke-kehv-mfvfx 1 tab PO QAM 02/13/24 02/13/24 History Patient History Medical History History of anesthesia reaction with previous 2 c-sections, one spinal one epidural, vomited after both procedures. History of migraine headaches Conductive hearing loss, bilateral Surgical History S/P myringotomy with insertion of tube Hx of tonsillectomy Hx of wisdom tooth extraction Hx of section x2 Hx of bilateral breast reduction surgery History of cryosurgery Family History Grandfather (Maternal) Diabetes Sister Gestational diabetes Cancer Father Hypertension Dyslipidemia Hypercholesteremia Mother Malignant hyperthermia FHx: allergies Environmental allergies Family/Other No problems noted. Other No family history of bleeding disorder Social History Smoking Status: Never smoker Second Hand Exposure: No; Do You Dip or Chew Tobacco: No; Tobacco Cessation Education Requested by Patient: No Hx Alcohol Use: No Hx Substance Use: No Preferred Language: Guatemalan Communication Ability: Effective Conduit Worker Required: No Beliefs That Will Affect Care: None marital status: Current Living Situation: Family Current Living Situation Comment: 2 children current occupational status: employed current occupation: dental hygientist Other Information That Helps Us Care for You: No Feels Safe at Home: Yes Safety Concerns: Feels Safe At This Time Assistive Devices: Glasses OB History x2 FIREFIGHTER TYPE ONE History neg Review of Systems All systems reviewed & are unremarkable except as noted in HPI & below Physical Exam Constitutional: WD/WN, vitals as above Respiratory: normal respiratory effort, lungs clear to auscultation Cardiovascular: RRR, no murmur, no edema Gastrointestinal (Abdomen): Inspection/Auscultation: abdomen normal to inspection and + abdominal surgical incision Musculoskeletal: Extremities: extremities normal to inspection Skin: no rashes, warm and dry Neurologic: patellar DTR's 2+ bilat, sensation intact Psychiatric: A+Ox3, euthymic affect Genitourinary: OB Exam Monitor Tracing: + external FHT monitor used, + ex ternal uterine monitor used, + category I and + normal FHT variability Results & Data Vital Signs (Past 12 Hours) Vital Signs Temp Pulse Resp BP 02/26/24 07:10 36.6 C 20 02/26/24 07:08 81 109/75 02/26/24 05:55 76 123/74 02/26/24 05:51 36.8 C 18 Laboratory Results Laboratory Results - last 48 hr 02/26/24 05:52 WBC 9.47 RBC 3.94 L Hgb 12.4 Hct 35.0 L MCV 88.8 MCH 31.5 MCHC 35.4 RDW Std Deviation 41.7 RDW Coeff of Keri 12.8 Plt Count 233 MPV 9.8 Immature Gran % (Auto) 0.6 Neut % (Auto) 59.9 Lymph % (Auto) 30.0 Ransom % (Auto) 8.6 Eos % (Auto) 0.6 Baso % (Auto) 0.3 Neut # (Auto) 5.67 Lymph # (Auto) 2.84 Ransom # (Auto) 0.81 H Eos # (Auto) 0.06 Baso # (Auto) 0.03 Immature Gran # (Auto) 0.06 Blood Type A Positive Antibody Screen NEGATIVE Monitoring External Monitor Cat 1
[2024-02-26] MEDS: CITRIC ACID/SODIUM CITRATE 15 ML UDC PO SCH (10:06)
[2024-02-26] MEDS: ceFAZolin 2000MG 2,000 MG/15 ML SYR IV SCH (10:16)
[2024-02-26] MEDS ORDERED: KETOROLAC 30 MG/ML VIAL ONE (11:15)
[2024-02-26] MEDS ORDERED: PHENYLEPHRINE 100MCG/ML 10ML SYR IV ONE (11:15)
[2024-02-26] MEDS ORDERED: OXYTOCIN 10 UNITS/ML VIAL ONE (11:15)
[2024-02-26] MEDS ORDERED: MEPERIDINE HCL 25 MG/ML CARP/VIAL IV PRN (11:52)
[2024-02-26] MEDS ORDERED: PROMETHAZINE HCL 6.25 MG in SODIUM CHLORIDE 0.9% 50 ML IV PRN (11:52)
[2024-02-26] MEDS ORDERED: NALOXONE HCL 0.4 MG/1 ML VIAL/CARP IV PRN (11:52)
[2024-02-26] MEDS ORDERED: LACTATED RINGER'S 500 ML IV PRN (11:52)
[2024-02-26] MEDS ORDERED: NALOXONE HCL 1 MG in SODIUM CHLORIDE 0.9% 1,000 ML IV PRN (11:52)
[2024-02-26] MEDS ORDERED: NALOXONE HCL 0.08 MG in SYRINGE 1.8 ML IV PRN (11:52)
[2024-02-26] MEDS ORDERED: ePHEDrine sulfate 50 MG/ML AMP IV PRN (11:52)
[2024-02-26] MEDS ORDERED: diphenhydrAMINE 50 MG/ML VIAL IV PRN (11:52)
[2024-02-26] MEDS ORDERED: NALBUPHINE HCL 5 MG in SYRINGE 0 ML IV PRN (11:52)
[2024-02-26] MEDS ORDERED: MoRPHine SULFATE 2 MG/ML CARP IV PRN (11:52)
--- NOTE | 2024-02-26 11:54 | Anesthesiology Progress Note ---
Date of Service February 26, 2024 Anesthesia Post Procedure Vital Signs Vital Signs: Temp Pulse Resp BP Pulse Ox 02/26/24 11:53 110/74 02/26/24 11:48 82 95 02/26/24 11:47 90 94 02/26/24 11:43 86 129/73 95 02/26/24 09:40 36.6 C 02/26/24 09:39 74 123/73 02/26/24 07:10 36.6 C 02/26/24 07:08 81 109/75 02/26/24 05:55 76 123/74 02/26/24 05:51 36.8 C 18 Transfer of Care Handoff Completed per policy Notes Mental Status: alert / awake / arousable Nausea / Vomiting: adequately controlled Pain: adequately controlled Airway Patency, RR, SpO2: stable & adequate BP & HR: stable & adequate Hydration State: stable & adequate Neuraxial Anesthesia: was administered and sensory block is resolving Anesthetic Complications: no major complications apparent and Pt Satisfied with anesthetic care
[2024-02-26] MEDS: SODIUM CHLORIDE 0.9% 1,000 ML IV SCH (11:57)
[2024-02-26] MEDS: MoRPHine SULFATE PF 1 MG/ML 10 ML AMP/VIAL INT SPINAL ONE (11:57)
[2024-02-26] MEDS ORDERED: DC INTRASPINAL MORPHINE SCH (12:00)
[2024-02-26] MEDS ORDERED: NO NARCOTICS OR SEDATIVES SCH (12:00)
--- NOTE | 2024-02-26 12:05 | Post Operative Brief Note ---
Immediate Post Op Note v1 Date of Surgery February 26, 2024 Pre & Post Diagnosis Operation Date: 02/26/24 07:30 Pre-Op Diagnosis: Elective Repeat Post-Op Diagnosis: Same as above I identified the patient and participated in the time-out.: Yes Procedure Operation Date: 02/26/24 07:30 Actual Procedures p Repeat Section - [facility] @1105 - Rubin Crespo MD Surgeon Rubin Crespo MD Highway Maintenance Technician Dr. Montenegro Estimated Blood Loss 412 Findings Consistent with Post-Op Diagnosis live male Apgars 8/9 weight 8lb. 4oz. Fluids LR 1200 ml Specimens placenta Drains Cool Catheter Anesthesia Type Spinal Complications none Disposition Accompanied Patient To Recovery: Yes Overlapping Procedure I was present for: the critical portions of procedure. I was immediately available: during the entire case. Back up surgeon: used during listed procedure.
[2024-02-26] MEDS: HYDROmorphone INJ 0.5 MG/0.5 ML SYR IV PRN (12:08)
--- NOTE | 2024-02-26 13:01 | Operative Report ---
Post Operative Report Pre & Post Diagnosis Operation Date: 02/26/24 07:30 Pre-Op Diagnosis: Elective Repeat Post-Op Diagnosis: Same as above I identified the patient and participated in the time-out.: Yes Procedure Operation Date: 02/26/24 07:30 Actual Procedures p [place] [facility] [place] Rubin Crespo MD Surgeon Rubin Crespo MD Farm Crew Leader Dr. Montenegro Estimated Blood Loss 412 Findings Consistent with Post-Op Diagnosis live male Apgars 8/9 weight 8 lbs. 40z. Fluids LR 1200 ml. Specimens placenta Drains Cool Anesthesia Type Spinal Complications none Disposition Accompanied Patient To Recovery: Yes Indications elective repeat Description of Procedure Under satisfactory spinal anesthesia the patient was prepped draped in usual sterile fashion. A timeout was called prior to the start of the procedure and antibiotics were given preop. A low Pfannenstiel incision through her prior scar was then made entering into the abdominal cavity in successive layers without difficulty. Upon entering into the peritoneal cavity the bladder flap was then dissected down with sharp Metzenbaum scissors a low segment transverse incision over the lower uterine segment was made and this incision was then widened in the AP diameter. Amniotic sac was nicked and found to be clear. The was then delivered from the vertex presentation with the aid of fundal pressure. Delivery was accomplished without difficulty delivering a live male there was delayed cord clamping for 1 minute Apgars were 8 and 9 weight was 8 pounds 4 ounces. Cord blood was then obtained the placenta was then delivered spontaneously and intact and submitted to pathology for a separate specimen. The uterus was then exteriorized ring forceps were then placed on the angles of the inferior margin the uterus was cleaned of all clots and debris with a lap pad. Uterus was then closed in a single layer closure with 0 Vicryl suture in a continuous interlocking fashion. The tubes ovaries bilaterally were found to be within normal limits. The initial sponge needle instrument count were found to be correct. The uterus was placed back into the normal anatomical position. The gutters on both the right and the left side were then inspected and found to be clear without any evidence of bleeding. The fascia was then reapproximated using 0 Vicryl suture in a continuous fashion. Subcuticular layer was then closed with 3-0 plain suture. And the skin was reapproximated with matthew due to the fact that the patient was uncomfortable from the spinal anesthesia wearing off. Q blood loss was 412 mL, the total fluids were 1200 mL. and the urine output was 250 mL. The patient tolerated procedure well the final sponge and instrument count being correct she was moved to the recovery room in stable condition end of dictation. Please note with the attestation Dr. Montenegro was needed to provide retraction exposure at surgery closure of the uterus and abdomen. I attest to the content of the Intraoperative Record and any orders documented therein. Any exceptions are noted below.
[2024-02-26] MEDS ORDERED: BENZOCAINE 20% SPRY 85 APPLN/85 GM CAN EXT PRN (14:54)
[2024-02-26] MEDS ORDERED: LACTATED RINGER'S 1,000 ML IV SCH (14:54)
[2024-02-26] MEDS ORDERED: MAGNESIUM HYDROXIDE SUSP 30 ML UDC PO PRN (14:54)
[2024-02-26] MEDS ORDERED: SENNA 8.6 MG TAB PO PRN (14:54)
[2024-02-26] MEDS ORDERED: HYDROCORTISONE ACETATE 25 MG SUPP PR PRN (14:54)
[2024-02-26] MEDS: SIMETHICONE 80 MG CHEW PO SCH (15:32)
[2024-02-26] MEDS: ONDANSETRON INJ 2 MG/ML 2 ML VIAL IV PRN (17:39)
[2024-02-26] MEDS: KETOROLAC 30 MG/ML VIAL IV PRN (17:50)
[2024-02-26] MEDS: DIPHTHER/TETAN/PERTUS Vaccine (Tdap, Adol/Adult) 0.5mL IM ONE (19:57)
[2024-02-26] MEDS: DOCUSATE SODIUM 100 MG CAP PO SCH (19:57)
[2024-02-26] MEDS: OXYTOCIN 30 UNITS/LR 1,003 ML IV SCH (19:58)
[2024-02-27] MEDS ORDERED: IBUPROFEN 600 MG TAB PO SCH (05:52)
[2024-02-27] MEDS ORDERED: PROMETHAZINE HCL 25 MG in SODIUM CHLORIDE 0.9% 50 ML IV PRN (05:53)
[2024-02-27] MEDS ORDERED: ONDANSETRON INJ 2 MG/ML 2 ML VIAL IV PRN (05:53)
[2024-02-27] MEDS ORDERED: diphenhydrAMINE 50 MG/ML VIAL IV PRN (05:53)
[2024-02-27] MEDS ORDERED: diphenhydrAMINE Capsule 25 MG CAP PO PRN (05:53)
--- NOTE | 2024-02-27 08:13 | Obstetrical Progress Note ---
Date of Service February 27, 2024 Assessment & Plan Admission and Anticipated Discharge Date Admission Date: February 26, 2024 Subjective Patient is seen and examined. She feels well, no complaints. Pain is under control with oral meds. Ambulating without dizziness Voiding without difficulty Tolerating regular diet with out N&V Flatus neg BM neg Bleeding is minimal No fever/ chills/ CP/ SOB/ N&V/ Leg pain Pumping breast milk Vital Signs Temp Pulse Resp BP Pulse Ox O2 Del Method 02/27/24 05:15 16 95 02/27/24 05:00 36.6 C 56 L 18 106/62 98 Room Air 02/27/24 04:15 16 96 02/27/24 03:16 18 95 02/27/24 02:15 16 94 02/27/24 01:17 18 96 02/27/24 01:10 36.8 C 77 18 105/65 97 Room Air 02/27/24 00:15 16 95 02/26/24 23:15 16 94 02/26/24 22:15 16 95 02/26/24 21:10 16 98 Lab Results 02/26/24 02/26/24 Range/Units 05:52 09:13 WBC 9.47 (4.8-10.8) K/ul RBC 3.94 L (4.20-5.40) M/uL Hgb 12.4 (12.0-16.0) g/dl Hct 35.0 L (37.0-47.0) % MCV 88.8 (80.0-100.0) fL MCH 31.5 (25.0-34.0) pg MCHC 35.4 (32.0-36.0) g/dL RDW Std Deviation 41.7 (36.4-46.3) fL RDW Coeff of Keri 12.8 (11.5-14.5) % Plt Count 233 (130-400) K/uL MPV 9.8 (9.4-12.4) fL Immature Gran % (Auto) 0.6 % Neut % (Auto) 59.9 % Lymph % (Auto) 30.0 % [facility] [place] % (Auto) 8.6 % Eos % (Auto) 0.6 % Baso % (Auto) 0.3 % Neut # (Auto) 5.67 (1.40-6.50) K/uL Lymph # (Auto) 2.84 (1.20-3.40) K/uL [facility] [place] # (Auto) 0.81 H (0.11-0.59) K/uL Eos # (Auto) 0.06 (0.00-0.50) K/uL Baso # (Auto) 0.03 (0.00-0.20) K/uL Immature Gran # (Auto) 0.06 (0.01-0.20) K/uL RPR Nonreactive (Nonreactive) Blood Type A Positive Antibody Screen NEGATIVE PE: General: Alert, orientedx3, NAD CVS: S1S2 RRR Lungs; CTAB Abd: soft, NT, ND, BS+, fundus firm, below Umbilicus Incision/Dressing: Clean, dry, intact Perineum intact, Lochia rubra minimal Ext; NT, no edema AP: 34 yo s/p C Section, pod# 1 VSS Afebrile doing well CBC pending Continue routine postop care Encourage ambulation, PO intake All questions were answered D/C home tomorrow Results & Data Vital Signs (Past 12 Hours) Vital Signs Temp Pulse Resp BP Pulse Ox O2 Del Method 02/27/24 05:15 16 95 02/27/24 05:00 36.6 C 56 L 18 106/62 98 Room Air 02/27/24 04:15 16 96 02/27/24 03:16 18 95 02/27/24 02:15 16 94 02/27/24 01:17 18 96 02/27/24 01:10 36.8 C 77 18 105/65 97 Room Air 02/27/24 00:15 16 95 02/26/24 23:15 16 94 02/26/24 22:15 16 95 02/26/24 21:10 16 98
[2024-02-27 08:26] LABS: Basophils # (auto) 0.05 K/uL (0.00-0.20); Basophils % (auto) 0.5 %; Eosinophils # (auto) 0.06 K/uL (0.00-0.50); Eosinophils % (auto) 0.6 %; Hematocrit (blood only) 33.9 % (37.0-47.0); Hemoglobin 11.8 g/dl (12.0-16.0); Immature Granulocytes # (auto) 0.06 K/uL (0.01-0.20); Immature Granulocytes % (auto) 0.6 %; Lymphocytes # (auto) 1.88 K/uL (1.20-3.40); Lymphocytes % (auto) 19.5 %; Mean Corpuscular Hemoglobin 31.3 pg (25.0-34.0); Mean Corpuscular Hgb Conc 34.8 g/dL (32.0-36.0); Mean Corpuscular Volume 89.9 fL (80.0-100.0); Mean Platelet Volume 9.8 fL (9.4-12.4); Monocytes # (auto) 0.85 K/uL (0.11-0.59); Monocytes % (auto) 8.8 %; Neutrophils # (auto) 6.72 K/uL (1.40-6.50); Platelet Count 188 K/uL (130-400); RDW Coefficient of Variation 12.9 % (11.5-14.5); Red Blood Count 3.77 M/uL (4.20-5.40); White Blood Count 9.62 K/ul (4.8-10.8)
[2024-02-27] MEDS: FERROUS SULFATE 325 MG TAB PO SCH (08:28)
[2024-02-27] MEDS: PRENATAL VITAMIN 1 TAB PO SCH (08:28)
[2024-02-27] MEDS: IBUPROFEN 600 MG TAB PO PRN (08:29)
[2024-02-27] MEDS: CYANOCOBALAMIN (B-12) 500 MCG TABLET PO SCH (08:44)
[2024-02-27] MEDS ORDERED: NON-FORMULARY MEDICATION (Prenat.Vits,Cal,Min-Iron-Folic Tablet) PO SCH (09:00)
[2024-02-27] MEDS ORDERED: CYANOCOBALAMIN (B-12) 500 MCG TABLET PO SCH (09:00)
[2024-02-27] MEDS: oxyCODONE/ACETAMINOPHEN 5mg/325mg TAB PO PRN (10:24)
[2024-02-27] MEDS: bisacodyL 5 MG TABEC PO SCH (20:33)
[2024-02-28 06:44] LABS: Hematocrit (blood only) 34.3 % (37.0-47.0); Hemoglobin 11.7 g/dl (12.0-16.0)
--- NOTE | 2024-02-28 08:53 | Obstetrical Progress Note ---
Date of Service February 28, 2024 Subjective Ambulation: ambulating normally Voiding: no voiding problems Passing Gas:: Yes Diet Tolerance:: regular diet Feeding Type:: breast feeding Current Pain Level(1-10): 0 doing well Physical Exam Constitutional WD/WN, vitals as above Gastrointestinal (Abdomen) Inspection/Auscultation: abdomen normal to inspection and + abdominal surgical incision abdomen soft and non-tender. fundus firm below U. incision c/d/i Musculoskeletal Extremities: extremities normal to inspection Skin no rashes, warm and dry Neurologic patellar DTR's 2+ bilat, sensation intact Psychiatric A+Ox3, euthymic affect Results & Data Vital Signs (Past 12 Hours) Vital Signs Temp Pulse Resp BP 02/27/24 23:20 37 C 78 18 131/84 Laboratory Results 02/26/24 02/26/24 02/27/24 05:52 09:13 07:46 WBC 9.47 9.62 RBC 3.94 L 3.77 L Hgb 12.4 11.8 L Hct 35.0 L 33.9 L MCV 88.8 89.9 MCH 31.5 31.3 MCHC 35.4 34.8 RDW Std Deviation 41.7 42.0 RDW Coeff of Keri 12.8 12.9 Plt Count 233 188 MPV 9.8 9.8 Immature Gran % (Auto) 0.6 0.6 Neut % (Auto) 59.9 70.0 Lymph % (Auto) 30.0 19.5 Sterling % (Auto) 8.6 8.8 Eos % (Auto) 0.6 0.6 Baso % (Auto) 0.3 0.5 Neut # (Auto) 5.67 6.72 H Lymph # (Auto) 2.84 1.88 Sterling # (Auto) 0.81 H 0.85 H Eos # (Auto) 0.06 0.06 Baso # (Auto) 0.03 0.05 Immature Gran # (Auto) 0.06 0.06 RPR Nonreactive Blood Type A Positive Antibody Screen NEGATIVE 02/28/24 06:09 WBC RBC Hgb 11.7 L Hct 34.3 L MCV MCH MCHC RDW Std Deviation RDW Coeff of Keri Plt Count MPV Immature Gran % (Auto) Neut % (Auto) Lymph % (Auto) Sterling % (Auto) Eos % (Auto) Baso % (Auto) Neut # (Auto) Lymph # (Auto) Sterling # (Auto) Eos # (Auto) Baso # (Auto) Immature Gran # (Auto) RPR Blood Type Antibody Screen
[2024-02-28] MEDS ORDERED: bisacodyL 10 MG SUPP PR PRN (12:06)
== END 2024-02-28 10:50 | disposition home or self-care (01) | DRG 788 ==
LOC: 4S1 05:39 → EDSTATUS 07:30 → 4E2 14:08